=== PATIENT | female | born 1970 | race Caucasian/White ===

== ENCOUNTER 2022-02-21 20:52 | Outpatient (CLI) | payer OTHER, SELFPAY ==
--- OUTSIDE RECORDS SUMMARY | 2022-02-21 20:55 | XMS_ITS | Clinical Summary ---
:1970 Author Organization [employer] [facility] [place] [address] Care Team Providers Name Role Phone Pcp, No Primary Care Provider Unavailable Allergies No known active allergies Medications Medication Sig Dispensed Refills Start Date End Date Status triamcinolone 0.5% Apply topically 15 g 3 09/08/2020 Active (ARISTOCORT) 0.5 % to affected creamIndications: Rash area(s) 3 times daily. As needed in vaginal area azelastine-fluticasone, Inhale 1 [place] 1 Each 2 10/17/2020 Active 137-50 mcg per to both actuation, (DYMISTA) nostrils 2 137-50 mcg/spray nasal times daily. sprayIndications: Allergic rhinitis, unspecified seasonality, unspecified trigger montelukast (SINGULAIR) Take 1 Tablet 30 Tablet 3 10/17/2020 Active 10 mg tabletIndications: (10 mg) by Allergic rhinitis, mouth at unspecified seasonality, bedtime. unspecified trigger pantoprazole (PROTONIX) Take 1 Tablet 90 tablet. 3 04/17/2021 Active 40 mg delayed-release (40 mg) by tabletIndications: mouth once Laryngopharyngeal reflux daily before a disease meal. cholecalciferol (Vitamin Take 1 Capsule 0 04/17/2021 Active D-3) 2,000 unit capsule (2,000 units) by mouth once daily. pimecrolimus (ELIDEL) 1 0 04/11/2021 Active % cream magnesium oxide (MAG-OX Take 1 Tablet 0 08/29/2021 Active 400) 400 mg tablet (400 mg) by mouth once daily. Active Problems Problem Noted Date Lichen sclerosus 02/24/2019 Overview: Sees willow machine [facility] Urinary frequency 02/03/2018 Irritant contact dermatitis due to other agents 2017 Oral herpes simplex infection 03/15/2016 Overview: Since childhood Vitamin D deficiency 10/04/2014 Hyperlipidemia 10/04/2014 Varicose veins 01/22/2013 Overview: Surgical treatment 2004 Esophageal reflux 08/07/2012 Overview: EGD 09/2012 esophageal and gastric erosio ns from reflux and Nsaids Bilateral bunions 08/07/2012 Smoker 10/29/2008 Fibromyalgia 12/04/2006 Dysthymic disorder 12/04/2006 Immunizations Name Administration Dates Next Due COVID-19 vaccine (Moderna 100mcg/0.5mL) PF, MDV 08/03/2021, 07/06/2021 DTaP 02/28/2005 Td (Age >=7 Years) 02/28/2005 Tdap 08/18/2013 Family History Medical History Relation Name Comments Colon polyps Brother Heart Disease Father open heart surge ry Other Maternal Grandmother esophogeal strictures Arthritis Mother Colon polyps Mother Other Mother hiatal hernia, r eflux Diabetes Paternal Grandmother Other Son reflux Cancer-breast No Family History Relation Name Status Comments Brother Alive Father Alive Maternal Grandmother Mother Alive Paternal Grandmother Son Social History Tobacco Use Types Packs/Day Years Used Date Current Every Day Smoker Cigarettes 0.5 30 Smokeless Tobacco: Never Used Tobacco Cessation: Ready to Quit: No; Co unseling Given: Yes Alcohol Use Standard Drinks/Week Comments Yes 0 (1 standard drink = 0.6 oz pure alcoho l) rare Alcohol Habits Answer Date Recorded How often do you have a drink containing 4 or more times a w [place] 12/15/2019 alcohol? How many drinks containing alcohol do you have 1 or 2 12/15/2019 on a typical day when you are drinking? How often do you have six or more drinks on one Weekly 12/15/2019 occasion? Comment: rare 06/27/2021 Sex Assigned at Date Recorded Not on file Obstetrics History Para Term AB IAB SAB Ectopic Multiple Living Live Births 2 2 2 2 Date Outcome GA Total Labor/2nd/3rd Weight Sex Delivery Anes PTL Marleny A 1 A5 Name Clin Labor Term Term Last Filed Vital Signs Vital Sign Reading Time Taken Comments Blood Pressure 144/87 08/29/2021 10:55 AM PLANT SPRAYER Pulse 86 08/29/2021 10:55 AM PLANT SPRAYER Temperature 36.8 ??C (98.3 ??F) 07/25/2021 12:03 PM PLANT SPRAYER Respiratory Rate 16 05/30/2021 9:13 AM PLANT SPRAYER Oxygen Saturation 99% 08/29/2021 10:55 AM PLANT SPRAYER Inhaled Oxygen Concentration - - Weight 76.7 kg (169 lb) 08/29/2021 10:55 AM PLANT SPRAYER Height 167.6 cm (5' 6) 07/25/2021 12:03 PM PLANT SPRAYER Body Mass Index 27.28 07/25/2021 12:03 PM PLANT SPRAYER Plan of Treatment Health Maintenance Due Date Last Done Comments Pneumococcal series for age 19-64 1978 (1 - PCV) Hepatitis C screening for age 0107/09/1990 18-79 Colonoscopy through age 75 2017 COVID-19 vaccine series (3 - 12/31/2021 08/03/2021, 022 Booster for Moderna series) Influenza for age 9-49 02/22/2022 Mammogram for age 45-75 04/17/2022 04/17/2021, 03/01/2020, 02/24/2019, Additional history exists BMI (ht and wt on same day) for 07/25/2022 07/25/2021, 12/0 12/2020, age 18+ 04/17/2021, Additional history exists Depression screening for age 12+ 08/29/2022 08/29/2021, , 04/17/2021, Additional history exists Tetanus booster 08/18/2023 08/18/2013, 02/28/2005 Pap test for age 21-65 03/01/2025 03/01/2020, 03/01/2020, 11/29/2016, Additional history exists Lipids for age 45-75 04/17/2026 04/17/2021, 03/01/2020, 02/24/2019, Additional history exists Tdap Completed 08/18/2013 Goals Goal Patient Goal Associated Recent Patient-Stated? Author Type Problems Progress BLOOD Blood Pressure Abby Albarran PRESSURE-Ness Madsen BP Suad, LESS THAN MANAGER SMALL BUSINESS 130/80 Results Not on filefrom Last 3 Months Insurance Payer Benefit Plan / Subscriber ID Effective Dates Phone Addre ss Type Group WC WORKERS COMP WC RADHA [id number] 2021-Pres [address] [place] [address] PREFERRED ONE AETNA [id number] 2020-Presen [address] [place] [address] Roselia Solitario Workers Comp Self 1970 [id number] [address] (Home) [place] [id number] [employer] FLEXIBLE Occ Employer ATTN [facility] Health/Jimena (Home) PAYABLE [address] [place] [address] Care Teams Video Clerk Relationship Specialty Start Date End Date Pcp, No PCP - General 10/21/21 .
--- NOTE | 2022-02-27 12:35 | W.PM.SLEEP ---
Sleep Study Details Details Interpreting Provider: Jesús Richardson MD Date of Sleep Study: 02/21/22 Sleep Study Details: STUDY TYPE:? Hospital ? BMI:? 25.1 ORDERING PROVIDER:? Fortino INDICATION: Concerns about sleep apnea ? SLEEP SUMMARY:? Sleep time 3:21 a.m., latency 57, efficiency 73. Arousal index 9.2 RESPIRATORY SUMMARY:? Mean oxygen awake 94, asleep 93, low oxygen 87, 0.1 minute oxygen between 80 and 88% AHI 3.6, RDI 5.4, REM AHI 15.0 Supine AHI 8.5 supine REM AHI 20 Nonsupine AHI an RDI and REM AHI overall 0 PERIODIC LIMB MOVEMENTS OF SLEEP:? None CARDIAC:? 71 awake, 69 asleep, no arrhythmias noted IMPRESSION:? The overall AHI in this study is within normal limits at 3.6 however the RDI is elevated at 5.4. This would qualify as mild sleep apnea. 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 RECOMMENDATION: Depending on patient's symptoms treatment could consist of AutoSet CPAP at 4-17, dental appliance and/or airway expansion surgery.
== END 2022-02-21 20:53 | disposition home or self-care (01) ==
LOC: SLEEP 20:54
PROVIDERS: PCP Family Medicine; Visit Provider Otolaryngology
DX: G47.30 Sleep apnea, unspecified (principal)
CPT/HCPCS: 95810

== ENCOUNTER 2022-04-10 16:27 | Outpatient (CLI) | payer OTHER, SELFPAY ==
--- OUTSIDE RECORDS SUMMARY | 2022-04-10 07:46 | XMS_ITS | Clinical Summary ---
:1970 Author Organization [employer] [facility] [place] [address] Care Team Providers Name Role Phone Pcp, No Primary Care Provider Unavailable Allergies No known active allergies Medications Medication Sig Dispensed Refills Start Date End Date Status triamcinolone 0.5% Apply topically 15 g 3 09/08/2020 Active (ARISTOCORT) 0.5 % to affected creamIndications: Rash area(s) 3 times daily. 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 How many drinks containing alcohol [...] Comments Blood Pressure 144/87 08/29/2021 10:55 AM PHOTORESIST CONTACT PRINTER Pulse 86 08/29/2021 10:55 AM PHOTORESIST CONTACT PRINTER Temperature 36.8 ??C (98.3 ??F) 07/25/2021 12:03 PM PHOTORESIST CONTACT PRINTER Respiratory Rate 16 05/30/2021 9:13 AM PHOTORESIST CONTACT PRINTER Oxygen Saturation 99% 08/29/2021 10:55 AM PHOTORESIST CONTACT PRINTER Inhaled Oxygen Concentration - - Weight 76.7 kg (169 lb) 08/29/2021 10:55 AM PHOTORESIST CONTACT PRINTER Height 167.6 cm (5' 6) 07/25/2021 12:03 PM PHOTORESIST CONTACT PRINTER Body Mass Index 27.28 07/25/2021 12:03 PM PHOTORESIST CONTACT PRINTER Plan of Treatment Health Maintenance Due Date Last Done Comments Pneumococcal series for age 19-64 1978 (1 - PCV) Hepatitis C screening for age 0107/09/1990 18-79 Colonoscopy through age 75 2017 COVID-19 vaccine series (3 - 09/28/2021 08/03/2021, 022 Booster for Moderna series) Influenza [...] Albarran PRESSURE-Ness Madsen BP Suad, LESS THAN SCHOOL BUSINESS ADMINISTRATOR 130/80 Results Not on filefrom Last 3 Months Insurance Payer Benefit Plan / Subscriber ID Effective Dates Phone Addre ss Type Group WC WORKERS COMP WC RADHA [id number] 2021-Pres [address] [place] [address] PREFERRED ONE AETNA [id number] 2020-Presen [address] [place] [address] Roselia Solitario Workers Comp Self 1970 [id number] [address] (Home) [place] [id number] [employer] FLEXIBLE Occ Employer ATTN [employer] Health/Jimena (Home) PAYABLE [address] [place] [address] Care Teams Pv Design And Installation Technician Relationship Specialty Start Date End Date Pcp, No PCP - General 10/21/21 .
[2022-04-10 12:43] LABS: Albumin* 4.5 g/dL (3.3-5.0)
[2022-04-10 12:44] LABS: Chloride* 107 mmol/L (96-114); Potassium* 4.2 mmol/L (3.6-5.1); Sodium* 139 mmol/L (135-149)
[2022-04-10 12:46] LABS: Alkaline Phosphatase* 92 U/L (40-150); Aspartate Amino Transferase* 17 U/L (12-35); Bilirubin Total* 0.3 mg/dL (0.1-1.5); Blood Urea Nitrogen* 13 mg/dL (5-24); Carbon Dioxide* 25 mmol/L (20-32); Cholesterol* 241 mg/dL (90-199); Creatinine* 0.9 mg/dL (0.5-1.5); Estimated Glomerular Filt Rate 78 ml/min
[2022-04-10 12:47] LABS: Alanine Aminotransferase* 14 U/L (4-35); Calcium* 9.4 mg/dL (8.4-10.6); Glucose* 98 mg/dL (60-115); HDL Cholesterol* 50 mg/dL (>=50); LDL Cholesterol Calculated 166 mg/dL (<100); Triglycerides* 125 mg/dL (40-149)
== END 2022-04-10 16:28 | disposition home or self-care (01) ==
PROVIDERS: PCP Family Medicine; Visit Provider Family Medicine
DX: E78.5 Hyperlipidemia, unspecified (principal); F34.1 Dysthymic disorder
CPT/HCPCS: 80053; 80061; 84443

== ENCOUNTER 2022-04-26 09:28 | Outpatient (CLI) | payer OTHER, SELFPAY ==
--- OUTSIDE RECORDS SUMMARY | 2022-04-26 09:30 | XMS_ITS | Clinical Summary ---
:1970 Author Organization [employer] [facility] [place] [address] Care Team Providers Name Role Phone Pcp, No Primary Care Provider Unavailable Allergies No known active allergies Medications Medication Sig Dispensed Refills Start Date End Date Status triamcinolone 0.5% Apply topically 15 g 3 09/08/2020 Active (ARISTOCORT) 0.5 % to affected creamIndications: Rash area(s) 3 times daily. 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 How many drinks containing alcohol [...] Comments Blood Pressure 144/87 08/29/2021 10:55 AM SOCIAL SCIENCE RESEARCH ASSISTANT Pulse 86 08/29/2021 10:55 AM SOCIAL SCIENCE RESEARCH ASSISTANT Temperature 36.8 ??C (98.3 ??F) 07/25/2021 12:03 PM SOCIAL SCIENCE RESEARCH ASSISTANT Respiratory Rate 16 05/30/2021 9:13 AM SOCIAL SCIENCE RESEARCH ASSISTANT Oxygen Saturation 99% 08/29/2021 10:55 AM SOCIAL SCIENCE RESEARCH ASSISTANT Inhaled Oxygen Concentration - - Weight 76.7 kg (169 lb) 08/29/2021 10:55 AM SOCIAL SCIENCE RESEARCH ASSISTANT Height 167.6 cm (5' 6) 07/25/2021 12:03 PM SOCIAL SCIENCE RESEARCH ASSISTANT Body Mass Index 27.28 07/25/2021 12:03 PM SOCIAL SCIENCE RESEARCH ASSISTANT Plan of Treatment Health Maintenance Due Date [...] Albarran PRESSURE-Ness Madsen BP Suad, LESS THAN AIR POLLUTION ANALYST 130/80 Results Not on filefrom Last 3 Months Insurance Payer Benefit Plan / Subscriber ID Effective Dates Phone Addre ss Type Group WC WORKERS COMP WC RADHA [id number] 2021-Pres [address] [place] [address] PREFERRED ONE AETNA [id number] 2020-Presen [address] [place] [address] Roselia Solitario Workers Comp Self 1970 [id number] [address] (Home) [place] [id number] [employer] FLEX[employer] Occ Employer ATTN [employer] Health/Jimena (Home) PAYABLE [address] [place] [address] Care Teams Promotion Writer Relationship Specialty Start Date End Date Pcp, No PCP - General 10/21/21 .
[2022-04-28 21:25] LABS: Follicle Stimulating Hormone 65.3 IU/L
== END 2022-04-26 09:29 | disposition home or self-care (01) ==
PROVIDERS: PCP Family Medicine; Visit Provider Physician Assistant
DX: Z01.419 Encounter for gynecological examination (general) (routine) without abnormal findings (principal); N95.1 Menopausal and female climacteric states; Z12.4 Encounter for screening for malignant neoplasm of cervix
CPT/HCPCS: 83001; 87624

== ENCOUNTER 2022-05-01 07:01 | Outpatient (CLI) | payer OTHER, SELFPAY ==
--- NOTE | 2022-05-01 07:15 | CRLHL7_ITS ---
For Patients: As a result of the Century Cures Act, medical imaging exams and procedure reports are released immediately into your electronic medical record. You may view this report before your referring provider. If you have questions, please contact your health care provider. INDICATION: 51 year-old female. Lower abdominal/pelvic pain. The last menstrual period was 2 months ago. TECHNIQUE: Transabdominal and transvaginal pelvic ultrasound. FINDINGS: The uterus measures 7.7 x 3.6 x 3.6 cm. Normal endometrial stripe of 5 mm. Normal ovaries with the right measuring 2.2 x 1.4 x 2 cm and the left measuring 2.4 x 1.1 x 2 cm. 8 mm follicle left ovary. Blood flow is documented in the ovaries both arterial and venous. No torsion. No free pelvic fluid. IMPRESSION: Normal transabdominal and transvaginal pelvic ultrasound. Dictated by Phil Sheridan MD @ 05/01/2022 8:43:32 AM (Electronically Signed)
--- OUTSIDE RECORDS SUMMARY | 2022-05-01 07:22 | XMS_ITS | Clinical Summary ---
:1970 Author Organization [employer] [facility] [place] [address] Care Team Providers Name Role Phone Pcp, No Primary Care Provider Unavailable Allergies No known active allergies Medications Medication Sig Dispensed Refills Start Date End Date Status triamcinolone 0.5% Apply topically 15 g 3 09/08/2020 Active (ARISTOCORT) 0.5 % to affected creamIndications: Rash area(s) 3 times daily. 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[facility] Urinary frequency 02/03/2018 Irritant contact dermatitis due to other agents 2017 Oral herpes simplex infection 03/15/2016 Overview: Since childhood Vitamin D deficiency 10/04/2014 Hyperlipidemia 10/04/2014 Varicose veins 01/22/2013 Overview: Surgical treatment 2004 Esophageal reflux 08/07/2012 Overview: EGD 09/2012 esophageal and gastric erosio ns from reflux and Nsaids Bilateral bunions 08/07/2012 Smoker 10/29/2008 Fibromyalgia 12/04/2006 Dysthymic disorder 12/04/2006 Encounters Date Type Specialty Care Team Description 04/26/2022 Lab Requisition Milagros Santos PA-C from Last 3 Months Immunizations Name Administration Dates Next Due COVID-19 vaccine (Moderna 100mcg/0.5mL) JONN BARONE 08/03/2021, 07/06/2021 DTaP 02/28/2005 Td (Age >=7 [...] containing 4 or more times a w [place] 12/15/2019 alcohol? How many drinks containing alcohol [...] Comments Blood Pressure 144/87 08/29/2021 10:55 AM PAROLE HEARING OFFICER Pulse 86 08/29/2021 10:55 AM PAROLE HEARING OFFICER Temperature 36.8 ??C (98.3 ??F) 07/25/2021 12:03 PM PAROLE HEARING OFFICER Respiratory Rate 16 05/30/2021 9:13 AM PAROLE HEARING OFFICER Oxygen Saturation 99% 08/29/2021 10:55 AM PAROLE HEARING OFFICER Inhaled Oxygen Concentration - - Weight 76.7 kg (169 lb) 08/29/2021 10:55 AM PAROLE HEARING OFFICER Height 167.6 cm (5' 6) 07/25/2021 12:03 PM PAROLE HEARING OFFICER Body Mass Index 27.28 07/25/2021 12:03 PM PAROLE HEARING OFFICER Plan of Treatment Health Maintenance Due Date [...] history exists Tetanus booster 08/18/2023 08/18/2013, 02/28/2005 Lipids for age 45-75 04/17/2026 04/17/2021, 03/01/2020, 02/24/2019, Additional history exists Pap test for age 21-65 04/26/2027 04/26/2022, 03/01/2020, 03/01/2020, Additional history exists Tdap Completed 08/18/2013 Goals Goal Patient Goal Associated Recent Patient-Stated? Author Type Problems Progress BLOOD Blood Pressure No Albarran PRESSURE-Ness Madsen BP Suad, LESS THAN CREDIT BALANCE SPECIALIST 130/80 Procedures Procedure Name Priority Date/Time Associated Diagnosis Comme nts LAB TRACKING EVENT Routine 04/26/2022 9:30 AM CDT HPV THIN PREP Routine 04/26/2022 9:30 AM Results for this CDT procedure are i n the results section. from Last 3 Months Results LAB TRACKING EVENT (04/26/2022 9:30 AM CDT) Specimen Anatomical Collection Method Collection Time Receive d Time (Source) Location / / Volume Laterality Other (Other) Client Collect / 04/26/2022 9:30 AM 08/2021 6:22 Unknown CDT PM CDT September Lili Santos PA-C LAB BILL ONLY Performing Organization Address City/[facility] Phon e Number [employer] [address] [place] [address] LABORATORY-CENTRAL 2000 LABORATORY HPV HIGH RISK (04/26/2022 9:30 AM CDT) Analysis Performed At Patho logist Time Signature TYPE 16 Negative Negative 04/28/2022 [facility] 3:15 PM CDT LABORATORY-NOMI TRAL LABORATORY TYPE 18 Negative Negative 04/28/2022 [facility] 3:15 PM CDT LABORATORY-NOMI TRAL LABORATORY OTHER HIGH Negative Negative [facility] LAB[facility]AT[facility]-NOMI TRAL LABORATORY Specimen Anatomical Collection Method Collection Time Receive d Time (Source) Location / / Volume Laterality Other (Cervical) 04/26/2022 9:30 AM 04/27 7:33 CDT AM CDT Narrative [facility] LABORATORY-CENTRAL LABORAT ORY - 04/28/2022 3:15 PM CDT HPV types 16, 18, 31, 33, 35, 39, 45, 51, 52, 56, 58, 59, 66 and 68 DNA were undetectable or below the pre-set threshold. Methodology: Shannon Valerio 4800 HPV Test September Lili Santos PA-C MICROBIOLOGY Performing Organization Address City/[facility] Phon e Number [employer] [address] [place] [address] LABORATORY-CENTRAL 2000 LABORATORY from Last 3 Months Insurance Payer Benefit Plan / Subscriber ID Effective Dates Phone Addre ss Type Group WC WORKERS COMP ZEHRA GARCIA [id number] 2021-Pres [address] [place] [address] PREFERRED ONE AETNA [id number] 2020-Presen [address] [place] [phone] Roselia Solitario Workers Comp Self 1970 [id number] [address] [place] (Home) [place] [id number] [employer] F[employer]IBLE Occ Employer ATTN [employer] Health/Jimena (Home) PAYABLE [address] [place] [address] Care Teams Electromechanical Engineer Relationship Specialty Start Date End Date Pcp, No PCP - General 10/21/21 .
== END 2022-05-01 07:02 | disposition home or self-care (01) ==
PROVIDERS: PCP Family Medicine; Visit Provider Physician Assistant
DX: R10.9 Unspecified abdominal pain (principal); R10.2 Pelvic and perineal pain
CPT/HCPCS: 76830; 76856; 93976

== ENCOUNTER 2022-06-04 14:48 | Outpatient (CLI) | payer OTHER, SELFPAY ==
--- OUTSIDE RECORDS SUMMARY | 2022-06-04 14:51 | XMS_ITS | Clinical Summary ---
:1970 Author Organization [facility] [place] [address] Care Team Providers Name Role Phone Pcp, No Primary Care Provider Unavailable Allergies No known active allergies Medications Medication Sig Dispensed Refills Start Date End Date Status triamcinolone 0.5% Apply topically 15 g 3 09/08/2020 Active (ARISTOCORT) 0.5 % to affected creamIndications: Rash area(s) 3 times daily. 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 How many drinks containing alcohol do you have 1 or 2 12/15/2019 on a typical day when you are drinking? How often do you have six or more drinks on one Weekly 12/15/2019 occasion? Sex Assigned at Date Recorded Not on file Obstetrics History Para Term AB IAB SAB Ectopic Multiple Living Live Births 2 2 2 2 Date Outcome GA Total Labor/2nd/3rd Weight Sex Delivery Anes PTL Marleny A 1 A5 Name Clin Labor Term Term Last Filed Vital Signs Vital Sign Reading Time Taken Comments Blood Pressure 144/87 08/29/2021 10:55 AM CASEWORK SPECIALIST Pulse 86 08/29/2021 10:55 AM CASEWORK SPECIALIST Temperature 36.8 ??C (98.3 ??F) 07/25/2021 12:03 PM CASEWORK SPECIALIST Respiratory Rate 16 05/30/2021 9:13 AM CASEWORK SPECIALIST Oxygen Saturation 99% 08/29/2021 10:55 AM CASEWORK SPECIALIST Inhaled Oxygen Concentration - - Weight 76.7 kg (169 lb) 08/29/2021 10:55 AM CASEWORK SPECIALIST Height 167.6 cm (5' 6) 07/25/2021 12:03 PM CASEWORK SPECIALIST Body Mass Index 27.28 07/25/2021 12:03 PM CASEWORK SPECIALIST Plan of Treatment Health Maintenance Due Date Last Done Comments Pneumococcal series for age 19-64 1978 (1 - PCV) HIV for age 15-65 1987 Hepatitis C screening for age 0107/09/1990 18-79 [...] Pap test for age 21-65 04/26/2027 04/26/2022, 04/26/2022, 03/01/2020, Additional history exists Tdap Completed 08/18/2013 Goals Goal Patient Goal Associated Recent Patient-Stated? Author Type Problems Progress BLOOD Blood Pressure No Albarran PRESSURE-Ness Madsen BP Suad, LESS THAN RETAIL PHARMACIST 130/80 Procedures Procedure Name Priority Date/Time Associated Diagnosis Comme nts LAB TRACKING EVENT Routine 04/26/2022 9:30 AM CDT TRACTOR SWEEPER OPERATOR THIN PREP PAP Routine 04/26/2022 9:30 AM Resu lts for this SCREEN IMAGED CDT procedure are in the results section. HPV THIN PREP Routine 04/26/2022 9:30 AM Results for this CDT procedure are i n the results section. from Last 3 Months Results LAB TRACKING EVENT (04/26/2022 9:30 AM CDT) Specimen Anatomical Collection Method Collection Time Receive d Time (Source) Location / / Volume Laterality Other (Other) Client Collect / 04/26/2022 9:30 AM 08/2021 6:22 Unknown CDT PM CDT Milagros Santos PA-C LAB BILL ONLY Performing Organization Address City/State/ZIP Code Phon e Number [employer] [employer] [address] [place] [address] LABORATORY-CENTRAL 2000 LABORATORY TRACTOR SWEEPER OPERATOR THIN PREP PAP SCREEN IMAGED (04/26/2022 9:30 AM CDT) Component Value Ref Test Analysis Performed At [facility] gist Range Method Time Signature Case Report Gynecologic Cytology Report ? Case: [id number] ? 05/23/2022 KISHORE Authorizing Provider: ??Milagros Avina PA-C ?Collected: ? 04/26/2022 0930 ? 1:42 PM HEALTH Ordering Location: ? [facility] CENTRAL LAB ?Received: ?04/27/2022 0733 ? CASEWORK SPECIALIST LA BORATORY-C First Screen: ? Pablo Naranjo ? ENTRAL Specimen: ?TRACTOR SWEEPER OPERATOR ThinPrep Vial Screening, Cervical ? LABORATORY INTERPRETATION NEGATIVE FOR (none) 05/23/2022 [facility] E lectronically /RESULT INTRAEPITHELIAL 1:42 PM HEALTH sign ed by LESION OR CASEWORK SPECIALIST LABORATORY-C Pablo Naranjo MALIGNANCY (NIL) ENTRAL on 05/23/2022 at LABORATORY 1:41 PM SPECIMEN Satisfactory for evaluation 05/23/2022 A LLINA ADEQUACY No endocervical component seen 1:42 PM HEALTH CASEWORK SPECIALIST LABORATORY-C ENTRAL LABORATORY HPV REQUEST HPV and PAP 05/23/2022 [facility] 1:42 PM HEALTH CASEWORK SPECIALIST LABORATORY-C ENTRAL LABORATORY Date of LMP 01/26/2022 05/23/2022 [facility] 1:42 PM HEALTH CASEWORK SPECIALIST LABORATORY-C ENTRAL LABORATORY Last Pap Date 03/01/2020 05/23/2022 [facility] 1:42 PM HEALTH CASEWORK SPECIALIST LABORATORY-C ENTRAL LABORATORY Last Pap NIL 05/23/2022 [facility] Result 1:42 PM HEALTH CASEWORK SPECIALIST LABORATORY-C ENTRAL LABORATORY [place] Bx Done No 05/23/2022 [facility] Today 1:42 PM HEALTH CASEWORK SPECIALIST LABORATORY-C ENTRAL LABORATORY Additional 05/23/2022 [facility] Information 1:42 PM HEALTH CASEWORK SPECIALIST LABORATORY-C ENTRAL LABORATORY Comment: Interpreted at [facility] - [address], [place] [address] Automated Review Successful 05/23/2022 1:42 PM [facility] LABORATORY-CENTRAL L ABORATORY Comment: Specimen processed successfully by automated ship keeper device, ThinPrep Imaging System, [employer] ANCILLARY TESTING HPV Ordered, 05/23/2022 1:42 PM [facility] TRACTOR SWEEPER OPERATOR Please see [facility] LABORATORY-CENTRAL separate report LABORATORY Note The pap test is a 05/23/2022 1:42 PM [place] [employer] screening CASEWORK SPECIALIST LABORATORY-CENTRAL technique, not a LABORATORY diagnostic procedure. It is used primarily to screen for squamous cancers and precursor lesions. Published studies have shown that it is subject to both false negative and false positive results. The pap test should not be used as the sole means to diagnose or exclude pre-malignant and malignant lesions. Specimen Anatomical Collection Method Collection Time Receive d Time (Source) Location / / Volume Laterality Other (Cervical) 04/26/2022 9:30 AM 04/27 7:33 CDT AM CDT September Tom FREEMAN PATHOLOGY/CYTOLOGY Performing Organization Address City/[facility] Phon e Number [facility] [address] [place] [address] LABORATORY-CENTRAL 2000 LABORATORY HPV HIGH RISK (04/26/2022 9:30 AM CDT) Analysis Performed At Patho logist Time Signature TYPE 16 Negative Negative 04/28/2022 [facility] [employer] 3:15 PM CDT LABORATORY-NOMI TRAL LABORATORY TYPE 18 Negative Negative 04/28/2022 [facility] [employer] 3:15 PM CDT LABORATORY-NOMI TRAL LABORATORY OTHER HIGH Negative Negative 04/28/2022 [facility] [employer] RISK TYPES 3:15 PM CDT LABORATORY-NOMI TRAL LABORATORY Specimen Anatomical Collection Method Collection Time Receive d Time (Source) Location / / Volume Laterality Other (Cervical) 04/26/2022 9:30 AM 04/27 7:33 CDT AM CDT Narrative [facility] LABORATORY-CENTRAL LABORAT ORY - 04/28/2022 3:15 PM CDT HPV types 16, 18, 31, 33, 35, 39, 45, 51, 52, 56, 58, 59, 66 and 68 DNA were undetectable or below the pre-set threshold. Methodology: Shannon Valerio 4800 HPV Test September Tom FREEMAN MICROBIOLOGY Performing Organization Address City/[facility] Phon e Number [facility] [address] [place] [address] LABORATORY-CENTRAL 1999 LABORATORY from Last 3 Months Insurance Payer Benefit Plan / Subscriber ID Effective Dates Phone Addre ss Type Group WC WORKERS COMP WC GARCIA [id number] 2021-Pres [address] [place] [address] PREFERRED ONE AETNA [id number] 2020-Walt [address] [place] [address] Roselia Solitario Workers Comp Self 1970 [id number] [place] (Home) [place] [id number] [employer] F[employer] Occ Employer ATTN [facility] Health/Jimena (Home) PAYABLE [address] [place] [address] Care Teams Hot Plate Press Operator Relationship Specialty Start Date End Date Pcp, No PCP - General 10/21/21 .
--- NOTE | 2022-06-04 15:00 | CRLHL7_ITS ---
For Patients: As a result of the Century Cures Act, medical imaging exams and procedure reports are released immediately into your electronic medical record. You may view this report before your referring provider. If you have questions, please contact your health care provider. BILATERAL SCREENING MAMMOGRAM WITH COMPUTER-AIDED DETECTION AND TOMOSYNTHESIS TECHNIQUE: CC and MLO views were obtained. These mammographic images have been obtained using full-field digital technique. These mammographic images were interpreted with the benefit of computer-aided detection. Breast Tomosynthesis was used in this interpretation. COMPARISON FILM: 04/17/21, 03/01/20, 11/29/16 [facility]. FINDINGS: There are scattered areas of fibroglandular density IMPRESSION: There is no radiographic evidence for malignancy. ASSESSMENT: BI-RADS Category 1: Negative RECOMMENDATION: Routine screening mammogram in 1 year. A lay language report of this examination will be provided to the patient. Shaun Agudelo M.D. Diagnostic Radiologist [email or web address] ZAINA/Dictated by: Shaun Agudelo MD @ 06/05/2022 1:18:00 PM (Electronically Signed)
== END 2022-06-04 14:49 | disposition home or self-care (01) ==
LOC: MAMMO 14:49
PROVIDERS: PCP Family Medicine; Visit Provider Family Medicine
DX: Z12.31 Encounter for screening mammogram for malignant neoplasm of breast (principal)
CPT/HCPCS: 77063; 77067

== ENCOUNTER 2022-06-06 09:25 | Outpatient (CLI) | payer OTHER, SELFPAY ==
--- OUTSIDE RECORDS SUMMARY | 2022-06-06 09:29 | XMS_ITS | Clinical Summary ---
:1970 Author Organization [facility] [place] [address] Care Team Providers Name Role Phone Pcp, No Primary Care Provider Unavailable Allergies No known active allergies Medications Medication Sig Dispensed Refills Start Date End Date Status triamcinolone 0.5% Apply topically 15 g 3 09/08/2020 Active (ARISTOCORT) 0.5 % to affected creamIndications: Rash area(s) 3 times daily. As needed in vaginal area azelastine-fluticasone, Inhale 1 [place] 1 Each 2 10/17/2020 Active 137-50 mcg [...] Noted Date Lichen sclerosus 02/24/2019 Overview: Sees pot flux[facility] Urinary frequency 02/03/2018 Irritant [...] containing 4 or more times a w [place] 12/15/2019 alcohol? How many drinks containing alcohol [...] Comments Blood Pressure 144/87 08/29/2021 10:55 AM ETL SOFTWARE ENGINEER Pulse 86 08/29/2021 10:55 AM ETL SOFTWARE ENGINEER Temperature 36.8 ??C (98.3 ??F) 07/25/2021 12:03 PM ETL SOFTWARE ENGINEER Respiratory Rate 16 05/30/2021 9:13 AM ETL SOFTWARE ENGINEER Oxygen Saturation 99% 08/29/2021 10:55 AM ETL SOFTWARE ENGINEER Inhaled Oxygen Concentration - - Weight 76.7 kg (169 lb) 08/29/2021 10:55 AM ETL SOFTWARE ENGINEER Height 167.6 cm (5' 6) 07/25/2021 12:03 PM ETL SOFTWARE ENGINEER Body Mass Index 27.28 07/25/2021 12:03 PM ETL SOFTWARE ENGINEER Plan of Treatment Health Maintenance Due Date [...] Albarran PRESSURE-Ness Madsen BP Suad, LESS THAN CHARGE POSTER 130/80 Procedures Procedure Name Priority Date/Time Associated Diagnosis Comme nts LAB TRACKING EVENT Routine 04/26/2022 9:30 AM CDT SHEET METAL JOURNEYMAN THIN PREP PAP Routine 04/26/2022 9:30 AM [...] Organization Address City/State/ZIP Code Phon e Number [facility] [address] [place] [address] LABORATORY-CENTRAL 2000 LABORATORY SHEET METAL JOURNEYMAN THIN PREP PAP SCREEN IMAGED (04/26/2022 9:30 AM CDT) Component Value Ref Test Analysis Performed At [facility] gist Range Method Time Signature Case Report Gynecologic Cytology Report ? Case: [id number] ? 05/23/2022 KISHORE Authorizing Provider: ??Milagros Avina PA-C ?Collected: ? 04/26/2022 0930 ? 1:42 PM HEALTH Ordering Location: ? [facility] CENTRAL LAB ?Received: ?04/27/2022 0733 ? ETL SOFTWARE ENGINEER LA BORATORY-C First Screen: ? Pablo Naranjo ? ENTRAL Specimen: ?SHEET METAL JOURNEYMAN ThinPrep Vial Screening, Cervical ? LABORATORY INTERPRETATION NEGATIVE FOR (none) 05/23/2022 [facility] E lectronically /RESULT INTRAEPITHELIAL 1:42 PM HEALTH sign ed by LESION OR ETL SOFTWARE ENGINEER LABORATORY-C Pablo Naranjo MALIGNANCY (NIL) ENTRAL on 05/23/2022 at LABORATORY 1:41 PM SPECIMEN Satisfactory for evaluation 05/23/2022 A LLINA ADEQUACY No endocervical component seen 1:42 PM HEALTH ETL SOFTWARE ENGINEER LABORATORY-C ENTRAL LABORATORY HPV REQUEST HPV and PAP 05/23/2022 [facility] 1:42 PM HEALTH ETL SOFTWARE ENGINEER LABORATORY-C ENTRAL LABORATORY Date of LMP 01/26/2022 05/23/2022 [facility] 1:42 PM HEALTH ETL SOFTWARE ENGINEER LABORATORY-C ENTRAL LABORATORY Last Pap Date 03/01/2020 05/23/2022 [facility] 1:42 PM HEALTH ETL SOFTWARE ENGINEER LABORATORY-C ENTRAL LABORATORY Last Pap NIL 05/23/2022 [facility] Result 1:42 PM HEALTH ETL SOFTWARE ENGINEER LABORATORY-C ENTRAL LABORATORY [place] Bx Done No 05/23/2022 [facility] Today 1:42 PM HEALTH ETL SOFTWARE ENGINEER LABORATORY-C ENTRAL LABORATORY Additional 05/23/2022 [facility] Information 1:42 PM HEALTH ETL SOFTWARE ENGINEER LABORATORY-C ENTRAL LABORATORY Comment: Interpreted at [facility] - [address] [place] [address], [place] [address] Automated Review Successful 05/23/2022 1:42 PM [facility] LABORATORY-CENTRAL L ABORATORY Comment: Specimen processed successfully by automated registration officer device, ThinPrep Imaging System, [employer] ANCILLARY TESTING HPV Ordered, 05/23/2022 1:42 PM [facility] HEALTH SHEET METAL JOURNEYMAN Please see [facility] LABORATORY-CENTRAL separate report LABORATORY Note The pap test is a 05/23/2022 1:42 PM [place] [employer] screening ETL SOFTWARE ENGINEER LABORATORY-CENTRAL technique, not a LABORATORY diagnostic procedure. [...] September Tom FREEMAN PATHOLOGY/CYTOLOGY Performing Organization Address City/[facility] Phon e Number [facility] [address] [place] [address] LABORATORY-CENTRAL 2000 LABORATORY HPV HIGH RISK (04/26/2022 9:30 AM CDT) Analysis Performed At Patho logist Time Signature TYPE 16 Negative Negative 04/28/2022 [facility] [employer] 3:15 PM CDT LABORATORY-NOMI TRAL LABORATORY TYPE 18 Negative Negative 04/28/2022 [facility] [employer] 3:15 PM CDT LABORATORY-NOMI TRAL LABORATORY OTHER HIGH Negative Negative 04/28/2022 [facility] [employer] RISK TYPES 3:15 PM CDT LABORATORY-NOMI TRAL LABORATORY Specimen Anatomical Collection Method Collection Time Receive d Time (Source) Location / / Volume Laterality Other (Cervical) 04/26/2022 9:30 AM 04/27 7:33 CDT AM CDT Narrative [facility] LABORATORY-CENTRAL LABORAT ORY - 04/28/2022 3:15 PM CDT HPV types 16, 18, 31, 33, 35, 39, 45, 51, 52, 56, 58, 59, 66 and 68 DNA were undetectable or below the pre-set threshold. Methodology: Shannon Valerio 4800 HPV Test September Tom FREEMAN MICROBIOLOGY Performing Organization Address City/[facility] Phon e Number [facility] [address] [place] [address] LABORATORY-CENTRAL 1999 LABORATORY from Last 3 Months Insurance Payer Benefit Plan / Subscriber ID Effective Dates Phone Addre ss Type Group WC WORKERS COMP WC GARCIA [id number] 2021-Pres [address] [place] [address] PREFERRED ONE [employer] [id number] 2020-Walt [address] [place] [address] Roselia Solitario Workers Comp Self 1970 [id number] [address] (Home) [place] [id number] [employer] Occ Employer ATTN [employer] Health/Jimena (Home) PAYABLE [address] [place] [address] Care Teams Automotive Engineering Teacher Relationship Specialty Start Date End Date Pcp, No PCP - General 10/21/21 .
[2022-06-07 23:17] LABS: Rheumatoid Factor <10 IU/mL (0-14)
== END 2022-06-06 09:26 | disposition home or self-care (01) ==
LOC: NFLDREF 09:27
PROVIDERS: PCP Family Medicine; Visit Provider Family Medicine
DX: M79.641 Pain in right hand (principal); M79.642 Pain in left hand; R10.9 Unspecified abdominal pain; E78.5 Hyperlipidemia, unspecified
CPT/HCPCS: 86200; 86431

== ENCOUNTER 2022-08-08 08:52 | Outpatient (CLI) | payer OTHER, SELFPAY ==
--- NOTE | 2022-08-08 09:15 | CRLHL7_ITS ---
For Patients: As a result of the Century Cures Act, medical imaging exams and procedure reports are released immediately into your electronic medical record. You may view this report before your referring provider. If you have questions, please contact your health care provider. INDICATION: Neck and arm pain. COMPARISON: None. TECHNIQUE: Sagittal T1, T2, and STIR sequences. Axial T2/gradient sequences. FINDINGS: Straightening of the normal cervical lordosis which may be due to most spasm or patient positioning. Otherwise, normal vertebral body and facet alignment. No fractures. No vertebral body loss of height. No spondylolisthesis. No ligamentous injury. No suspicious osseous lesions. Normal cord signal. No intradural mass or lesion. C1-2: No spinal canal narrowing. C2-3: No spinal canal or neural foraminal narrowing. C3-4: Disc degeneration. Shallow posterior disc bulging disc osteophyte complex measured approximate 2 mm in short axis. No narrowing of spinal canal. No neural foraminal narrowing. C4-5: Disc degeneration and posterior disc bulge. No narrowing of spinal canal. No neural foraminal narrowing. C5-6: Disc degeneration and posterior disc bulge or disc osteophyte complex. Mild narrowing of spinal canal. Uncovertebral joint hypertrophy results in moderate right and mild left neural foraminal narrowing. Potential impingement of the right C6 nerve root. C6-7: No spinal canal neural foraminal narrowing. C7-T1: No spinal canal or neural foraminal narrowing. IMPRESSION: 1. Straightening of the normal cervical lordosis. Otherwise, normal alignment. No fractures 2. Normal cord signal. 3. Mild cervical spondylosis. 4. At C5-6, disc degeneration. Posterior disc bulge or disc osteophyte complex. Mild narrowing of the spinal canal. Moderate right and mild left neural foraminal narrowing. Potential impingement of the right C6 nerve root. 5. No spinal canal or neural foraminal narrowing at the remaining levels Dictated by Luciano Humphreys MD @ 08/08/2022 11:09:11 AM (Electronically Signed)
== END 2022-08-08 08:53 | disposition home or self-care (01) ==
PROVIDERS: PCP Family Medicine; Visit Provider Psychiatry & Neurology Neurology
DX: M54.2 Cervicalgia (principal); M47.892 Other spondylosis, cervical region; M50.322 Other cervical disc degeneration at C5-C6 level; M79.603 Pain in arm, unspecified; G24.3 Spasmodic torticollis; G44.86 Cervicogenic headache; R20.2 Paresthesia of skin; R25.1 Tremor, unspecified
CPT/HCPCS: 72141

== ENCOUNTER 2022-08-10 08:30 | Outpatient (RCR) | payer OTHER, SELFPAY | END 2022-08-10 10:02 | disposition home or self-care (01) | PROVIDERS: PCP Family Medicine; Visit Provider Family Medicine | DX: M79.641 Pain in right hand (principal); Z51.89 Encounter for other specified aftercare | CPT/HCPCS: 97035; 97110; 97140; 97166; 97535; X5282 ==

== ENCOUNTER 2023-02-21 11:49 | Outpatient (CLI) | payer OTHER, SELFPAY | END 2023-02-21 11:50 | disposition home or self-care (01) | PROVIDERS: PCP Family Medicine; Visit Provider Nurse Practitioner Family | DX: R07.89 Other chest pain (principal); R35.0 Frequency of micturition; N39.46 Mixed incontinence; Z13.6 Encounter for screening for cardiovascular disorders | CPT/HCPCS: 80048; 80053; 80061; 85025; 87086 ==

== ENCOUNTER 2023-02-26 12:34 | Outpatient (CLI) | payer OTHER, SELFPAY ==
[2023-02-26 13:38] VITALS: BP 150/98; PULSE 88; RESP 18
--- NOTE | 2023-02-26 14:13 | W.PM.STED ---
Stress Test Note Date Date of test: 02/26/23 Providers Primary care provider: Jadiel June Stress test physician: Quan Kearns Stress Test Note Stress test ordered: Stress Echo Indication for test: chest pain Results discussion: Patient is a very nice 52-year-old female presents here for evaluation of chest pain. Pretest EKG shows normal sinus rhythm, with no acute ST wave changes, ventricular rate is 71 with a blood pressure 144/92. Cardiac stress test medical history form is reviewed. Risks benefits and side effects are discussed with patient she would like to proceed. Following standard Bhupinder protocol patient is exercised for a total time of 6 minutes 1 seconds, test is stop because of fatigue. Achieved a metabolic equivalent 7.3 Mets and a maximum heart rate of 145. She had no chest pain she was some mild shortness of breath. There is no EKG changes suggestive of ischemia, she had no anginal equivalents. And there were no dysrhythmias. Impression: Negative electrographic portion of stress echo, conditioning was felt to be poor Follow up suggested: Await echo images, clinical correlation with these will be needed. Patient recovered normally left this testing facility in good condition.
== END 2023-02-26 13:50 | disposition home or self-care (01) ==
LOC: STRESS 12:35
PROVIDERS: PCP Family Medicine; Visit Provider Family Medicine
DX: R07.9 Chest pain, unspecified (principal)
CPT/HCPCS: 93016; 93325; 93351

== ENCOUNTER 2023-04-15 07:45 | Outpatient (CLI) | payer OTHER, SELFPAY | END 2023-04-15 07:46 | disposition home or self-care (01) | LOC: NFLDREF 04-17 15:32 | PROVIDERS: PCP Family Medicine; Referring Provider Family Medicine; Visit Provider Family Medicine | DX: E78.5 Hyperlipidemia, unspecified (principal) | CPT/HCPCS: 80053; 80061 ==

== ENCOUNTER 2023-05-07 11:34 | Outpatient (CLI) | payer OTHER, SELFPAY ==
--- NOTE | 2023-05-07 12:11 | W.ANESCHARGE ---
Anesthesia Charges Start Date/Time Anesthesia Start Date: 05/07/23 Anesthesia Start Time: 12:05 Stop Date/Time Anesthesia Stop Date: 05/07/23 Anesthesia Stop Time: 13:28
--- NOTE | 2023-05-07 13:32 | W.ANESCHARGE ---
Anesthesia Charges Start Date/Time Anesthesia Start Date: 05/07/23 Anesthesia Start Time: 12:05 Stop Date/Time Anesthesia Stop Date: 05/07/23 Anesthesia Stop Time: 13:28
== END 2023-05-07 11:35 | disposition home or self-care (01) ==
LOC: OP CLINIC 11:34
PROVIDERS: PCP Family Medicine; Visit Provider Surgery
DX: Z12.11 Encounter for screening for malignant neoplasm of colon (principal); K63.5 Polyp of colon; K62.1 Rectal polyp; D17.5 Benign lipomatous neoplasm of intra-abdominal organs; Z83.719 Family history of colon polyps, unspecified
CPT/HCPCS: 00811; 45380; 45385; 88305; J2704

== ENCOUNTER 2023-07-30 09:04 | Outpatient (CLI) | payer OTHER, SELFPAY ==
--- OUTSIDE RECORDS SUMMARY | 2023-07-30 09:06 | XMS_ITS | Data Portability ---
Author Name Unknown Address [address] [place] [address] Phone [phone] Organization [facility], [employer] Address [address] [place] [address] Assessment Encounter Date Assessment Date Assessment LastModified by Organization Details LastModified Time 07/02/2022 07/02/2022 Patient presents with bilateral foot problem with significant findings including: metatarsalgia b/l, tarsal tunnel symptoms b/l. Based on history, physical exam, and prior diagnostic tests/treatments , I recommend conservative care and considering diagnostic injections. Discussed treatment plan and orders with patient as indicated below. Not available 07/02/2022 22:48:05 Plan of Treatment Reminders Order Date Submit Date Provider Last Modified By Organization Details Last Modified Time Details Appointments None record ed. Lab None record ed. Referral None record ed. Procedures None record ed. Surgeries None record ed. Imaging None record ed. Medication Orders None record ed. Patient TargetsNo targets recorded. Patient InstructionsNo instructions recorded. Reason for Referral None Reported. Problems Name Status Onset Date Resolution Date Notes Provider Name and Address Organization Details Recorded Time Anxiety disorder Active 2022 Parish Abarca, ANA [address] [place], [address] , [facility] 3 11:42:40 Gastroesophageal reflux disease Active 2022 Parish Abarca, ANA [address] [place], [address] , [facility] 3 11:43:52 Lateral plantar neuropathy Active 2021 Lateral plantar neuropathy; Original Code: 126149580 Andi ginal Codesystem: SNOMED CT Classifica tion: Medical Confi rmation Status: Confirmed Not Available [facility] 3 09:15:37 Peptic ulcer Active 2021 Peptic ulcer; Original Code: 25378000 Orig inal Codesystem: SNOMED CT Classifica tion: Medical Confi rmation Status: Confirmed Not Available [facility] 3 09:15:37 Hypertensive disorder Active 2021 Hypertensive disorder; Original Code: 5328970486 Or iginal Codesystem: SNOMED CT Classifica tion: Medical Confi rmation Status: Confirmed Not Available [facility] 3 09:15:37 Metatarsalgia Active 2021 Metatarsalgia ; Original Code: 64687073 Orig inal Codesystem: SNOMED CT Classifica tion: Medical Confi rmation Status: Confirmed Not Available [facility] 3 09:15:37 Notes:Acquired deformity of left foot Original Code: [id number] Original Codesystem: SNOMED CT Classification: Medical Confirmation Status: Confirmed Acquired deformity of right foot Original Code: 6166770580 Original Codesystem: SNOMED CT Classification: Medical Confirmation Status: Confirmed Problem Notes None recorded. Medical Equipment None Reported. Allergies No known drug allergies Medications Name Sig Start Date Stop Date Status Note LastModified by Organization Details LastModified Time tizanidin e 2 mg tablet TAKE 1 TABLET BY MOUTH IN THE EVENING MONITOR NEEDED FOR PAIN OR DROWSINE SS active Not Available Not Available No t Available triamcino lone acetonide 0.1 % topical cream USE 1 APPLIC TOPICALL Y TWICE WEEKLY APPLY TO AREA TWICE WEEKLY active Not Available Not Available No t Available amoxicill in 875 mg tablet 07/02 completed Not Available Not Available Not Available amitripty line 10 mg tablet TAKE 10 MG AT BEDTIME FOR 7DAYS, THEN 20MG FOR 7DAYS, THEN 30MG FOR 7 DAYS, THEN 40MG THEREAFT ER active Not Available Not Available No t Available pantopraz ole 40 mg tablet,de layed release TAKE ONE TABLET BY MOUTH DAILY BEFORE A MEAL active Not Available Not Available No t Available methylpre dnisolone 4 mg tablets in a dose pack TAKE 1 PACKET BY MOUTH ONCE DIRECTED ON PACKAGE LABELING 07/02 completed Not Available Not Available Not Available celecoxib 100 mg capsule TAKE 1 CAPSULE BY MOUTH TWICE A DAY active Not Available Not Available No t Available cholecalc iferol (vitamin D3) 2021 active Medicati on Identifi ers: [id number] C ode Medthod: DNUM Ord erStatus : Ordered Visit Identifi ers: [id number] Vi sit Identifi er Type: FIN NBR Uniq ue Order Number: [id number] Admin istratio n Method: Med PRN Indicato r: N Order Status Modifier s Descript ion: Recorded / Home Meds Not Available Not Available Not Available Vitals Date Recorded Body height Body mass index (BMI) Body weight Provider Name and Address Organization Details Last Updated DateTime 07/02/2022 170.18 cm 28.2 kg/m2 33222.63 g Kylie osborne [place] - [facility] 07/02/2022 10:23:58 Social History Question Answer Notes LastModified by Organizat ion Details LastModified Time Tobacco Smoking Status Current Every Day Smoker Parish Abarca DPM [address] [place] [address], [phone], [facility] - [facility] 07/02/2022 11:42:27 What Is Your Level Of Alcohol Consumption? Occasional Information not available 07/02/2022 Do You Use Any Illicit Or Recreational Drugs? No Information not available 07/02/2022 Sex: Female Functional Status None recorded. Mental Status None recorded. Family History Nothing Reported. Medical History No medical history recorded. Gynecological HistoryNo gynecological history recorded. Obstetrics History GPAL:G 0 P 0 0 0 0 Past Encounters Encounter ID Performer Location Encounter Start Date Encounter Closed Date Diagnosis/Indication [id number] Parish Abarca DPM [place] [facility] [address] [facility] [address] [place] [address] 07/02/2022 10:22:20 07/03/2022 09:12:27 Metatarsalgia Tarsal tunnel syndrome Equinus contracture of the ankle Health Concerns Section Related Observation LastModified by Organization Detai ls LastModified Time None Recorded Concern Status LastModified by Organization Details LastModified Time None Recorded Advance Directives Directive None Recorded Payers Encounter Date Sequence Insurance Name Policy Number Policy [place] Covered Member ID [place] Member ID Guarantor Name 07/02/2022 1 [employer] (POS) [id number] Roselia Solitario [id number] Roselia Cheek Kassi Notes Date Note Type Note Provider Name and Address Organization Details Recorded Time 07/02/2022 text/html HPI Notes: This established patient rtc for f/u evaluation of b/l foot pain. She feels it is worsening. She has increasing sharp pains to her forefoot. She has pain to both ankles. Denies any swelling. She does wear her orthotics regularly at work but not at home. Parish Abarca, ANA [address] [place], [address], [facility] - [facility] 07/02/2022 22:50:14 OBGyn Episode No OBEpisode recorded.
--- OUTSIDE RECORDS SUMMARY | 2023-07-30 09:06 | XMS_ITS | Clinical Summary ---
Author Name Unknown Organization [facility] Address [place], [place] [address] Care Team Providers Care Audit Practice Intern Name Role Phone Pcp, No Primary Care Provider Unavailabl e Allergies No known active allergies Medications Medication Sig Dispensed Refills Start Date End Date Status triamcinolone 0.5% (ARISTOCORT) 0.5 % creamIndications:Jorge h Apply topically to affected area(s) 3 times daily. As needed in vaginal area 15 g 3 09/08/2020 Active azelastine-fluticaso ne, 137-50 mcg per actuation, (DYMISTA) 137-50 mcg/spray nasal sprayIndications:All ergic rhinitis, unspecified seasonality, unspecified trigger Inhale 1 [place] to both nostrils 2 times daily. 1 Each 2 10/17/2020 Active montelukast (SINGULAIR) 10 mg tabletIndications:Al lergic rhinitis, unspecified seasonality, unspecified trigger Take 1 Tablet (10 mg) by mouth at bedtime. 30 Tablet 3 10/17/2020 Active pantoprazole (PROTONIX) 40 mg delayed-release tabletIndications:La ryngopharyngeal reflux disease Take 1 Tablet (40 mg) by mouth once daily before a meal. 90 tablet. 3 04/17/2021 Active cholecalciferol (Vitamin D-3) 2,000 unit capsule Take 1 Capsule (2,000 units) by mouth once daily. 0 04/17/2021 Active pimecrolimus (ELIDEL) 1 % cream 0 04/11/2021 Active magnesium oxide (MAG-OX 400) 400 mg tablet Take 1 Tablet (400 mg) by mouth once daily. 0 08/29/2021 Active Active Problems Problem Noted Date Diagnosed Date Lichen sclerosus 02/24/2019 Overview: [facility]es [facility] Urinary frequency 02/03/2018 Irritant contact dermatitis due to other agents 01/15/2018 Oral herpes simplex infection 03/15/2016 Overview: Since childhood Vitamin D deficiency 10/04/2014 Hyperlipidemia 10/04/2014 Varicose veins 01/22/2013 Overview: Surgical treatment 2004 Esophageal reflux 08/07/2012 Overview: EGD 09/2012 esophageal and gastric erosions from reflux and Nsaids Bilateral bunions 08/07/2012 Smoker 10/29/2008 Fibromyalgia 12/04/2006 Dysthymic disorder 12/04/2006 Encounters Date Type Department Care Team Description 05/07/2023 Lab Requisition [facility] [phone] Pebbles Mir MD from Last 3 Months Immunizations Name Administration Dates Next Due COVID-19 vaccine (Moderna 100mcg/0.5mL) PFJONN 08/03/2021,07/06/2021 DTaP 02/28/2005 Td (Age >=7 Years) 02/28/2005 Tdap 08/18/2013 Family History Medical History Relation Name Comments Colon polyps Brother Heart Disease Father open heart prudence juan a Other Maternal Grandmother esophog eal strictures Arthritis Mother Colon polyps Mother Other Mother hiatal hernia, reflux Diabetes Paternal Grandmother Other Son reflux Cancer-breast No Family History Relation Name Status Comments Brother Alive Father Alive Maternal Grandmother Mother Alive Paternal Grandmother Son Social History Tobacco Use Types Packs/Day Years Used Date Smoking Tobacco: Every Day Cigarettes 0.5 30 Smokeless Tobacco: Never Tobacco Cessation:Ready to Q uit: No; Counseling Given: Yes Alcohol Use Standard Drinks/Week Comments Yes 0 (1 standard drink = 0.6 oz pur e alcohol) rare PHQ-2 Answer Date Recorded PHQ-2 TOTAL SCORE 3 08/29/2021 Social Connections Answer Date Recorded Frequency of Communication with Friends and Fami ly Not on file 06/19/2021 Financial Resource Strain Answer Date R ecorded Difficulty of Paying Living Expenses Not on file 06/19/2021 Difficulty of Paying Living Expenses Not on file 06/19/2021 Sex and Gender Information Value Date Recorded Sex Assigned at Not on file Gender Identity Not on file Sexual Orientation Not on file Obstetrics History Para Term AB IAB SAB Ectopic Multiple Livin g Live Births 2 2 2 2 Date Outcome GA Total Labor Labor/2nd/3rd Weight Sex Delivery Anes PTL Marleny A1 A5 Name Cl in Term Term Last Filed Vital Signs Vital Sign Reading Time Taken Comments Blood Pressure 144/87 08/29/2021 10:55 AM DEPUTY COMMISSIONER Pulse 86 08/29/2021 10:55 AM DEPUTY COMMISSIONER Temperature 36.8 ??C (98.3 ??F) 07/25/2021 12:[address] Respiratory Rate 16 05/30/2021 9:13 AM DEPUTY COMMISSIONER Oxygen Saturation 99% 08/29/2021 10:55 AM DEPUTY COMMISSIONER Inhaled Oxygen Concentration - - Weight 76.7 kg (169 lb) 08/29/2021 10:55 AM DEPUTY COMMISSIONER Height 167.6 cm (5' 6) 07/25/2021 12:03 PM DEPUTY COMMISSIONER Body Mass Index 27.28 07/25/2021 12:03 PM DEPUTY COMMISSIONER Plan of Treatment Health Maintenance Due Date Last Done Comments Pneumococcal series for age 6-64 (1 of 2 - PCV) 1978 HIV for age 15-65 1987 Hepatitis C screening for ag e 18-79 1990 Colonoscopy through age 75 2017 Mammogram for age 45-75 04/17/2022 04/17/20 21, 03/01/2020, 02/24/2019, Additional history exists Zoster (shingles) series for age 50+ (1 of 2) 2022 BMI (ht and wt on same day) for age 18+ 07/25/2022 07/25/2021, 05/30/2021, 04/17/2021, Additional history exists Depression screening for age 12+ 08/29/2022 08/29/2021, 04/18/2021, 04/17/2021, Additional history exists COVID-19 vaccine series ( - 2022- season) 2023 08/03/2021, 07/06/2021 Influenza for age 50-64 02/22/2023 Tetanus booster 08/18/2023 08/18/2013, 02/28/2005 Lipids for age 45-75 04/17/2026 04/17/2021, 03/01/2020, 02/24/2019, Additional history exists Pap test for age 21-65 04/26/2027 , 04/26/2022, 03/01/2020, Additional history exists Tdap Completed 08/18/2013 Goals Goal Patient Goal Type Associated Problems Recent Progress Patient-Stated? Author BLOOD PRESSURE-MA INTAINS BP LESS THAN 130/80 Blood Pressure No Ness Morrow NP Procedures Procedure Name Priority Date/Time Associated Diagnosis Comments LAB TRACKING EVENT Routine 05/07/2023 1: 00 PM DEPUTY COMMISSIONER PATH TISSUE EXAM Routine 05/07/2023 1:00 PM DEPUTY COMMISSIONER from Last 3 Months Results * LAB TRACKING EVENT (05/07/2023 1:00 PM DEPUTY COMMISSIONER) Other (Other) Client Collect / Unknown 05/07/2023 1:00 PM DEPUTY COMMISSIONER 05/07/2023 9:02 PM DEPUTY COMMISSIONER Pebbles Mir MD LAB BILL ONLY [facility] [address] [place] [address], * PATH TISSUE EXAM (05/07/2023 1:00 PM DEPUTY COMMISSIONER) Case Report Pathology Report ?Case: [id number] ? Authorizing Provider: ??Pebbles Mir MD ??Collected: ? 05/07/2023 1300 ? Ordering Location: ? [facility] ?Received: ?05/08/2023 0827 ? Pathologist: ? Jose Guadalupe, Adeel Mcdaniel, ? MD ? Specimens: ?? A) - Splenic Flexure Biopsy ? B) - Cecum Biopsy ? C) - Hepatic Flexure Biopsy ? D) - Hepatic Flexure Biopsy, hepatic flexure, lipoma ? E) - Transverse Colon Biopsy ? F) - Sigmoid Biopsy ? G) - Rectal Biopsy ? 05/09/2023 2:57 PM [facility] Final Diagnosis A) COLON, SPLENIC FLEXURE, POLYPECTOMIES: 1. Tubular adenomas (2), hyperplastic polyp (1) and normal colonic mucosa with lymphoid aggregate 2. Negative for high grade dysplasia 3. Per the colonoscopy report: ?? a. Polyp sizes: 6 mm - 8 mm ?? b. Resection: Complete ?? c. Retrieval: Complete B) COLON, CECUM, POLYPECTOMY: 1. Tubulovillous adenoma consistent with an advanced adenoma 2. Negative for high grade dysplasia 3. Per the colonoscopy report: ?? a. Polyp size: 20 mm ?? b. Resection: Complete ?? c. Retrieval: Complete C) COLON, HEPATIC FLEXURE, POLYPECTOMIES: 1. Tubular adenomas (2) 2. Negative for high grade dysplasia 3. Per the colonoscopy report: ?? a. Polyp sizes: 6 mm - 8 mm ?? b. Resection: Complete ?? c. Retrieval: Complete D) COLON, HEPATIC FLEXURE, POLYPECTOMY: 1. Normal colonic mucosa (see comment) 2. Negative for serrated change, dysplasia and malignancy E) COLON, TRANSVERSE, POLYPECTOMIES: 1. Tubular adenomas (2) 2. Negative for high grade dysplasia 3. Per the colonoscopy report: ?? a. Polyp sizes: 2 mm - 4 mm ?? b. Resection: Complete ?? c. Retrieval: Complete F) COLON, SIGMOID, POLYPECTOMY: 1. Tubular adenoma 2. Negative for high grade dysplasia 3. Per the colonoscopy report: ?? a. Polyp size: 6 mm ?? b. Resection: Complete ?? c. Retrieval: Complete G) RECTUM, POLYPECTOMY: 1. Traditional serrated adenoma (1, largest polyp) and hyperplastic polyps (9) 2. Negative for high grade dysplasia 3. Per the colonoscopy report: ?? a. Polyp sizes: 4 mm - 10 mm ?? b. Resection: Complete ?? c. Retrieval: Complete 05/09/2023 2:57 PM DEPUTY COMMISSIONER [facility] Comment B) Advanced adenoma of the colorectum is defined by the [employer] ([employer]G) as an adenoma that is 1 cm or more in size, contains an appreciable villous component, or has high grade dysplasia (Chloé Cook. [2008] Gastroenterology, PMID - [id number]). Patients with advanced adenomas are at an increased risk for synchronous and metachronous additional advanced adenomas. Appropriate follow-up is suggested. D) The clinical impression of a possible lipoma is noted; there is too little submucosal tissue present here to histologically evaluate this possibility. There is no diagnostic abnormalities in the sampled tissue. G) Traditional serrated adenoma is an uncommon polyp in the serrated family of polyps that show dysplastic nuclear features throughout. The USMSTF guidelines recommend a 3-year interval for surveillance colonoscopy in patients with traditional serrated adenoma. This recommendation, however, is weak and based on very low-quality of evidence. 05/09/2023 2:57 PM DEPUTY COMMISSIONER [facility] Clinical Information Family history of colon cancer. 05/09/2023 2:57 PM DEPUTY COMMISSIONER [facility] Gross Description A) Received in formalin are 3 kendall mucosal fragments ranging from 4 mm to 10 mm in greatest dimension, which are entirely submitted in one cassette. It is labeled with the patient's name and designated splenic flexure. B) Received in formalin is a 19 x 9 x 3 mm aggregate of kendall mucosa. Submitted in 2 cassettes. It is labeled with the patient's name and designated cecum. C) Received in formalin is a 15 x 10 x 2 mm aggregate of kendall mucosa. Submitted in one cassette. It is labeled with the patient's name and designated hepatic flexure. D) Received in formalin are 2 kendall mucosal fragments ranging from 2 mm to 4 mm in greatest dimension, which are entirely submitted in one cassette. It is labeled with the patient's name and designated hepatic flexure, lipoma. E) Received in formalin are 3 kendall mucosal fragments averaging 3 mm in greatest dimension, which are entirely submitted in one cassette. It is labeled with the patient's name and designated transverse colon. F) Received in formalin are 4 kendall mucosal fragments ranging from 1 mm to 5 mm in greatest dimension, which are entirely submitted in one cassette. It is labeled with the patient's name and designated sigmoid colon. G) Received in formalin are 8 kendall mucosal fragments ranging from 3 mm to 16 mm in greatest dimension, which are entirely submitted in 2 cassettes. It is labeled with the patient's name and designated rectum. Paris Cheek Noon 05/08/2023 8:58 AM 05/09/2023 2:57 PM DEPUTY COMMISSIONER [facility] Microscopic Description The final diagnosis is based on microscopic examination of appropriate sections of all specimens. 05/09/2023 2:57 PM DEPUTY COMMISSIONER [facility] Additional Information Interpreted at [facility], [facility] Laboratory - [address] [place] [address] [facility] [address], [place] [address] 05/09/2023 2:57 PM DEPUTY COMMISSIONER [facility] Other (Splenic Flexure Biopsy) 05/07/2023 1:00 PM DEPUTY COMMISSIONER 05/08/2023 8:27 AM DEPUTY COMMISSIONER Specimen (specimen) (Cecum Biopsy) 05/07/2023 1:00 PM DEPUTY COMMISSIONER 05/08/2023 8:27 AM DEPUTY COMMISSIONER Specimen (specimen) (Hepatic Flexure Biopsy) 05/07/2023 1:00 PM DEPUTY COMMISSIONER 05/08/2023 8:27 AM DEPUTY COMMISSIONER Specimen (specimen) (Hepatic Flexure Biopsy) 05/07/2023 1:00 PM DEPUTY COMMISSIONER 05/08/2023 8:27 AM DEPUTY COMMISSIONER Specimen (specimen) (Transverse Colon Biopsy) 05/07/2023 1:00 PM DEPUTY COMMISSIONER 05/08/2023 8:27 AM DEPUTY COMMISSIONER Specimen (specimen) (Sigmoid Biopsy) 05/07/2023 1:00 PM DEPUTY COMMISSIONER 05/08/2023 8:27 AM DEPUTY COMMISSIONER Specimen (specimen) (Rectal Biopsy) 05/07/2023 1:00 PM DEPUTY COMMISSIONER 05/08/2023 8:27 AM DEPUTY COMMISSIONER Pebbles Mir MD PATHOLOGY/CYTOLO GY [facility] [address] [place] [address], from Last 3 Months Care Teams Audit Practice Intern Relationship Specialty Start Date End Date Pcp, No . PCP - General 10/21/21
--- NOTE | 2023-07-30 09:15 | CRLHL7_ITS ---
For Patients: As a result of the Century Cures Act, medical imaging exams and procedure reports are released immediately into your electronic medical record. You may view this report before your referring provider. If you have questions, please contact your health care provider. BILATERAL SCREENING MAMMOGRAM WITH COMPUTER-AIDED DETECTION AND TOMOSYNTHESIS TECHNIQUE: CC and MLO views were obtained. These mammographic images have been obtained using full-field digital technique. These mammographic images were interpreted with the benefit of computer-aided detection. Breast Tomosynthesis was used in this interpretation. COMPARISON FILM: 06/04/22, 04/17/21, 03/01/20. FINDINGS: There are scattered areas of fibroglandular density IMPRESSION: There is no radiographic evidence for malignancy. ASSESSMENT: BI-RADS Category 1: Negative RECOMMENDATION: Routine screening mammogram in 1 year. A lay language report of this examination will be provided to the patient. Shaun Agudelo M.D. Diagnostic Radiologist [email or web address] ZAINA/Dictated by: Shaun Agudelo MD @ 07/30/2023 12:38:00 PM (Electronically Signed)
== END 2023-07-30 09:05 | disposition home or self-care (01) ==
LOC: MAMMO 09:04
PROVIDERS: PCP Family Medicine; Visit Provider Family Medicine
DX: Z12.31 Encounter for screening mammogram for malignant neoplasm of breast (principal)
CPT/HCPCS: 77063; 77067

== ENCOUNTER 2023-09-24 06:06 | Day surgery (SDC) | payer OTHER, SELFPAY ==
[2023-09-24 06:24] VITALS: BMI 30.3
[2023-09-24 06:55] LABS: Hemoglobin* 14.1 gm/dL (12.0-16.0)
[2023-09-24 07:06] VITALS: BP 113/79; PULSE 78; RESP 16; TEMP 36.7; O2SAT 95
[2023-09-24] MEDS: SODIUM CHLORIDE 0.9 % (FLUSH) 10 ML SYRINGE IVF (07:11)
[2023-09-24] MEDS: LACTATED RINGERS 1000 ML 1,000 ML 100 ML IV (07:11)
--- NOTE | 2023-09-24 07:30 | P.PCN_ITS ---
Procedure Note Time Seen by Provider: 08:09 Date Seen: 09/24/23 Date of procedure: 09/24/23 Will [facility] bill your pro fee for this procedure?: Yes Procedure: Preop diagnosis: Roselia is a 53 year-old woman with a mixed urinary incontinence. Postop diagnosis: Same. Procedure: Transobturator, suburethral sling placement Anesthesia: Conscious sedation, local Total IV fluid: 900 mL Estimated blood loss : 30 mL Specimen: None Drains: Lainez to gravity Findings: On diagnostic cystoscopy after the sling was placed to there was no evidence of bladder or urethral injury. Procedure The patient was taken to the operating room and conscious sedation was found to be adequate. The patient was placed in high Caballero's position for the sling placement. A weighted speculum was placed in the posterior vaginal introitus. A marker was used to place tao in the groin folds at the level of the clitoris. 1% lidocaine with epinephrine was injected into both the groin fold incision sites and the anterior aspect of the vaginal canal at the mid urethral junction. Two punch incisions were made at each of the groin fold sites. A 2 cm it vertical incision was made anterior aspect of the vaginal canal just below the mid urethral junction. The right Adelina trocar was then advanced through the right groin incision and the right side of the sling was attached to the trocar and the trocar reverse through the incision to pull the sling through. The left trocar was then placed in the left side of the sling then pulled through in a similar manner. The Lainez catheter was briefly removed for diagnostic cystoscopy with the above find ing stated. A 9. Cervical dilator was placed between the sling and the vaginal canal and the sling pulled tight. The trocars were then removed using a scissors, the plastic overlying the sling was removed and the sling cut to below the groin fold skin incisions. Exofin adhesive gel was applied to the groin fold incisions. The vaginal incision was repaired using 2-0 Vicryl in a running locked manner. The speculum was removed. Sponge, lap and instrument counts were correct x2 at the end the procedure. The patient was awakened from anesthesia taken to the recovery area in stable condition. The patient received 2 g IV Ancef prior to the start of the procedure
--- NOTE | 2023-09-24 07:30 | W.PM.H&PU ---
History & Physical Update History & Physical Update H&P Reviewed and patient assessed: No changes noted
[2023-09-24] MEDS: CEFAZOLIN 2 GM INJ IVP (07:37)
[2023-09-24 08:20] VITALS: BP 101/68; PULSE 73; RESP 16; TEMP 36.6; O2SAT 95
--- NOTE | 2023-09-24 08:22 | W.ANESCHARGE ---
Anesthesia Charges Start Date/Time Anesthesia Start Date: 09/24/23 Anesthesia Start Time: 07:30 Stop Date/Time Anesthesia Stop Date: 09/24/23 Anesthesia Stop Time: 08:21
[2023-09-24 08:30] VITALS: BP 124/86; PULSE 67; RESP 16; O2SAT 94
[2023-09-24] MEDS: OXYCODONE 5 MG TABLET PO (08:32)
[2023-09-24 08:45] VITALS: BP 113/71; PULSE 65; RESP 16; O2SAT 95
[2023-09-24 09:00] VITALS: BP 116/71; PULSE 73; RESP 16; O2SAT 95
--- NOTE | 2023-09-24 09:10 | SUR.PHASEII ---
Bladder back filed with 300cc at 0830, void trial at 0900. Pt able to void 250cc, updated & OK with results.
[2023-09-24] MEDS: ACETAMINOPHEN 500 MG TABLET 1000 MG PO (09:35)
== END 2023-09-24 09:47 | disposition home or self-care (01) ==
PROVIDERS: PCP Family Medicine; Visit Provider Obstetrics & Gynecology
PROC: (CPT 57288; principal; 2023-09-24 07:30)
DX: N39.46 Mixed incontinence (principal)
CPT/HCPCS: 57288; 00940; 36415; 85018; 86850; 86900; 86901; A4344; A9270; C1771; J0690; J1885; J2250; J2405; J2704; J3010; J7120

== ENCOUNTER 2023-10-10 09:26 | Outpatient (CLI) | payer OTHER, SELFPAY | END 2023-10-10 09:27 | disposition home or self-care (01) | LOC: NFLDREF 09:26 | PROVIDERS: PCP Family Medicine; Visit Provider Obstetrics & Gynecology | DX: R30.0 Dysuria (principal) | CPT/HCPCS: 87086 ==

== ENCOUNTER 2023-10-31 07:04 | Outpatient (CLI) | payer OTHER, SELFPAY ==
--- OUTSIDE RECORDS SUMMARY | 2023-10-31 07:06 | XMS_ITS | Data Portability ---
Author Name Unknown Address [address] [place] [address] Phone [phone] Organization [place] - [facility], [employer] Address [address] [place] [address] Assessment Encounter Date Assessment Date Assessment LastModified by Organization Details LastModified Time 07/02/2022 07/02/2022 Patient presents with bilateral foot problem with significant findings including: metatarsalgia b/l, tarsal tunnel symptoms b/l. Based on history, physical exam, and prior diagnostic tests/treatments , I recommend conservative care and considering diagnostic injections. Discussed treatment plan and orders with patient as indicated below. Not available 07/02/2022 22:48:05 08/21/2023 08/21/2023 The patient was informed of her diagnosis as detailed down below. At this time I recommended that we modify her previous inserts with a first ray cutout in addition to further padding to the heels to offload pressure. Additionally I did discuss that I would recommend physical therapy at this time, however we will wait at this time. In regards to her overall inflammation I will give a medrol dose pack for initial anti inflammatory relief. The patient will be seen back in a few weeks after her insert modifications for a recheck. I did discuss that in regards to her fibromyalgia I would be unable to correct this myself and I did recommend that she work with her previous neurology provider. [email or web address] Not available 08/21/2023 10:24:16 Plan of Treatment Reminders Order Date Submit Date Provider Last Modified By Organization Details Last Modified Time Details Appointments None recorded. Lab None recorded. Referral None recorded. Procedures None recorded. Surgeries None recorded. Imaging XR, foot, 3 or more view 024 024 [facility], [address], [place], [address], /202 4 13:53:24 XR, foot, 3 or more view 024 024 [facility], [address] [place] [address] [address] [place], [address], 02/29/202 4 13:53:24 Medication Orders Medrol (Arturo) 4 mg tablets in a dose pack 024 [facility] [address] [employer], [address] [facility] [address], [place], [address], 4 10:16:01 Patient TargetsNo targets recorded. Patient InstructionsNo instructions recorded. Reason for Referral None Reported. Results Created Date Observation Date Name Description Value Unit Range Abnormal Flag LastModifiedBy Organization Detail LastModifiedTime 08/21/19 24 XR, foot, 3 or more view No observ ation record ed. [address], [address], 08/21/2023 10:15:13 08/21/19 24 XR, foot, 3 or more view No observ ation record ed. [address] [place], [address], 08/21/2023 10:15:19 Result Notes None recorded. Problems Name Status Onset Date Resolution Date Notes Provider Name and Address Organization Details Recorded Time Anxiety disorder Active 2022 NANCY Pierce - [facility] 3 11:42:40 Gastroesophageal reflux disease Active 2022 NANCY Pierce - [facility] 3 11:43:52 Lateral plantar neuropathy Active 2021 Lateral plantar neuropathy; Original Code: 116480866 Andi ginal Codesystem: SNOMED CT Classifica tion: Medical Confi rmation Status: Confirmed Not Available [facility] 3 09:15:37 Peptic ulcer Active 2021 Peptic ulcer; Original Code: 40973968 Orig inal Codesystem: SNOMED CT Classifica tion: Medical Confi rmation Status: Confirmed Not Available [facility] 3 09:15:37 Hypertensive disorder Active 2021 Hypertensive disorder; Original Code: 1792968259 Or iginal Codesystem: SNOMED CT Classifica tion: Medical Confi rmation Status: Confirmed Not Available [facility] 3 09:15:37 Metatarsalgia Active 2021 Metatarsalgia ; Original Code: 70105824 Orig inal Codesystem: SNOMED CT Classifica tion: Medical Confi rmation Status: Confirmed Not Available [facility] 3 09:15:37 Notes:Acquired deformity of left foot Original Code: 1984406998 Original Codesystem: SNOMED CT Classification: Medical Confirmation Status: Confirmed Acquired deformity of right foot Original Code: 5716558921 Original Codesystem: SNOMED CT Classification: Medical Confirmation Status: Confirmed Problem Notes None recorded. Procedures Surgical History None recorded. Imaging Results Imaging Date Name Status LastModified by Organiz ation Details LastModified Time 08/21/2023 XR, foot, 3 or more view completed [address] [facility] [address] [place] [address] [address] [place], [address], 08/21/2023 10:15:13 08/21/2023 XR, foot, 3 or more view completed [address] [facility] [address] [place] [address] [address] [place], [address], 08/21/2023 10:15:19 Procedure Notes None recorded. Medical Equipment None Reported. Allergies No known drug allergies Medications Name Sig Start Date Stop Date Status Note LastModified by Organization Details LastModified Time primidone 50 mg tablet PLEASE SEE ATTACHED FOR DETAILED DIRECTIO NS active Not Available Not Available No t Available tizanidin e 2 mg tablet TAKE 1 TABLET BY MOUTH IN THE EVENING MONITOR NEEDED FOR PAIN OR DROWSINE SS active Not Available Not Available No t Available azithromy melvin 250 mg tablet TAKE 2 TABLETS BY MOUTH TODAY, THEN TAKE 1 TABLET DAILY FOR 4 DAYS active Not Available Not Available No t Available Medrol (Arturo) 4 mg tablets in a dose pack Take 1 dose pk by oral route, for metatars algia and foot pain. 2023 active Not Available Not Available Not Avai lable triamcino lone acetonide 0.1 % topical cream APPLY TOPICALL Y TWICE A DAY X 2 WEEKS, THEN TWICE WEEKLY active Not Available Not Available No t Available amoxicill in 875 mg tablet 07/02 completed Not Available Not Available Not Available amitripty line 10 mg tablet TAKE 10 MG AT BEDTIME FOR 7DAYS, THEN 20MG FOR 7DAYS, THEN 30MG FOR 7 DAYS, THEN 40MG THEREAFT ER active Not Available Not Available No t Available pantopraz ole 40 mg tablet,de layed release 40 MG ORALLY DAILY active Not Available Not Available No t Available nystatin 100,000 unit/gram topical cream APPLY TOPICALL Y TO AFFECTED AREA 3 TIMES DAILY X1-2 WEEKS & CONTINUE FOR 2 DAYS AFTER RASH RESOLVES active Not Available Not Available No t Available celecoxib 100 mg capsule TAKE 1 CAPSULE BY MOUTH TWICE A DAY active Not Available Not Available No t Available amoxicill in 875 mg-potass ium clavulana te 125 mg tablet TAKE 1 TABLET BY MOUTH TWICE A DAY active Not Available Not Available No t Available pregabali n 75 mg capsule START WITH 1 CAPSULE ONCE DAILY. INCREASE EVERY 3 DAYS BY 1 CAP TO 150MG TWICE DAILY TOLERATE D active Not Available Not Available No t Available cholecalc iferol (vitamin D3) 2021 active Medicati on Identifi ers: [id number] C ode Medthod: DNUM Ord erStatus : Ordered Visit Identifi ers: [id number] Vi sit Identifi er Type: FIN NBR Uniq ue Order Number: [id number] Admin istratio n Method: Med PRN Indicato r: N Order Status Modifier s Descript ion: Recorded / Home Meds Not Available Not Available Not Available diclofena c 1 % topical gel USE 2 GRAMS 4 TIMES A DAY TO SINGLE ELBOW, WRIST OR HAND (HAND INCLUDES PALM/FIN GERS/PETER K OF HANDS) active Not Available Not Available No t Available GaviLyte- G 236 gram-22.7 4 gram-6.74 gram-5.86 gram oral solution 240 ML ORALLY EVERY 10 MINUTES UNTIL FECAL EFFLUENT IS CLEAR active Not Available Not Available No t Available baclofen 5 mg tablet TAKE 1 TABLET BY MOUTH TWICE A DAY active Not Available Not Available No t Available Vitals Date Recorded Body height Body mass index (BMI) Body weight Provider Name and Address Organization Details Last Updated DateTime 07/02/2022 170.18 cm 28.2 kg/m2 20523.63 g Kylie osborne [facility] 07/02/2022 10:23:58 Social History Question Answer Notes LastModified by Organizat ion Details LastModified Time Tobacco Smoking Status Current Every Day Smoker Parish osborne [facility] 07/02/2022 11:42:27 [...] Encounter Start Date Encounter Closed Date Diagnosis/Indication Diagnosis SNOMED-CT Code 1852 [facility] [address] [place] [address] 07/02/2022 10:22:20 07/03/2022 09:12:27 Metatarsalgia 56125362 Tarsal sohail viet syndrome 92015634 Equinus co ntracture of the ankle 185949183 12242 Vamsi Bernstein [facility] Office [address] [place] [address] 08/21/2023 09:36:57 08/22/2023 13:53:23 Fibromyalgia 357369930 Metatarsal clifford of right foot 96441444630313 0 Metatarsal clifford of left foot 72153387538093 6 Plantar fasciitis 916710 003 Health Concerns Section Related Observation LastModified by Organization Detai ls LastModified Time None Recorded Concern Status LastModified by Organization Details LastModified Time None Recorded Advance Directives Directive None Recorded Payers Encounter Date Sequence Insurance Name Policy Number Policy [place] Covered Member ID [place] Member ID Guarantor Name 08/21/2023 1 [employer] (POS) [id number] Roselia Solitario [id number] 5 Roselia Solitario 07/02/2022 1 [employer] (POS) [id number] Roselia Forbesalem [id number] 5 Roselia Cheek Kassi Notes Date Note [...] at work but not at home. Parish osborne [place] - [facility] 07/02/2022 22:50:14 08/21/2023 text/html HPI Notes: Marleny judd is a 53 year old female established patient who presents to clinic today for evaluation of bilateral foot pain. She was a previous patient of my partner who has since moved institutions who saw her last visit for possible tarsal tunnel syndrome in addition to metatarsalgia to both feet. Endorses that she has had gradual worsening of her foot pain overtime and her previous inserts have not been helpful in reducing pain. Of note the patient does have a history of fibromyalgia under management by Neurology who have recommended Lyrica for management of neuropathy symptoms. The patient mentions that she does not want to take this medication secondary to side effects at this time. Vamsi Bernstein, ANA [address] [place], [address], [facility] 08/28/2023 11:06:08 OBGyn Episode No OBEpisode recorded.
--- OUTSIDE RECORDS SUMMARY | 2023-10-31 07:06 | XMS_ITS | Clinical Summary ---
Author Name Unknown Organization [facility] Address [place], [place] [address] Care Team Providers Care Flight Reservations Manager Name Role Phone Pcp, No Primary Care [...] rhinitis, unspecified seasonality, unspecified trigger Inhale 1 [place] to both nostrils 2 times daily. 1 [...] 04/17/2021 Active pimecrolimus (ELIDEL) 1 % cream 04/11/2021 Active magnesium oxide (MAG-OX 400) 400 mg tablet Take 1 Tablet (400 mg) by mouth once daily. 0 08/29/2021 Active Active Problems Problem Noted Date Diagnosed Date Lichen sclerosus 02/24/2019 Overview: [facility]es [facility] Urinary frequency 02/03/2018 Irritant [...] Due COVID-19 vaccine (Moderna 100mcg/0.5mL) PF, MDV 08/03/2021,07/06/2021 DTaP 02/28/2005 Td (Age >=7 Years) [...] Comments Blood Pressure 144/87 08/29/2021 10:55 AM ACCOUNTS PAYABLE ADMINISTRATOR Pulse 86 08/29/2021 10:55 AM ACCOUNTS PAYABLE ADMINISTRATOR Temperature 36.8 ??C (98.3 ??F) 07/25/2021 12:[address] Respiratory Rate 16 05/30/2021 9:13 AM ACCOUNTS PAYABLE ADMINISTRATOR Oxygen Saturation 99% 08/29/2021 10:55 AM ACCOUNTS PAYABLE ADMINISTRATOR Inhaled Oxygen Concentration - - Weight 76.7 kg (169 lb) 08/29/2021 10:55 AM ACCOUNTS PAYABLE ADMINISTRATOR Height 167.6 cm (5' 6) 07/25/2021 12:03 PM ACCOUNTS PAYABLE ADMINISTRATOR Body Mass Index 27.28 07/25/2021 12:03 PM ACCOUNTS PAYABLE ADMINISTRATOR Plan of Treatment Health Maintenance Due Date Last Done Comments HIV for age 15-65 1987 Hepatitis C screening for age 18-79 1990 Colonoscopy through age 75 2017 Mammogram for age 45-75 04/17/2022 04/17/20, 03/01/2020, 02/24/2019, Additional history exists Zoster (shingles) series for age 50+ (1 of 2) 2022 BMI (ht and wt on same day) for age 18+ 07/25/2022 07/25/2021, 05/30/2021, 04/17/2021, Additional history exists Depression screening for age 12+ 08/29/2022 08/29/2021, 04/18/2021, 04/17/2021, Additional history exists COVID-19 vaccine series ( season) 2023 08/03/2021, 07/06/2021 Tetanus booster 08/18/2023 08/18/2013, 02/28/2005 Influenza for age 50-64 02/23/2024 Lipids for age 45-75 04/17/2026 04/17/2021, 03/01/2020, 02/24/2019, Additional history exists Pap test for age 21-65 04/26/2027 2, 04/26/2022, 03/01/2020, Additional history exists Tdap Completed 08/18/2013 Pneumococcal series for age 6-64 Aged Out No longer eligible based on patient's age to complete this topic Goals Goal Patient Goal Type Associated Problems Recent Progress Patient-Stated? Author BLOOD PRESSURE-MA INTAINS BP LESS THAN 130/80 Blood Pressure No Ness Morrow NP Procedures Procedure Name Priority Date/Time Associated Diagnosis Comments HPV THIN PREP Routine 04/26/2022 9:30 AM CDT XR MAMMO BILAT SCREENING Routine 04/17/2021 9:38 AM CDT Visit for screening mammogram LIPID PANEL W REFLEX MEASURED LDL Routine 04/17/2021 8:56 AM CDT Screening for lipoid disorders from Last 3 Months or Most Recently Relevant to Health Maintenance Results * HPV HIGH RISK (04/26/2022 9:30 AM CDT) TYPE 16 Negative Negative 04/28/2022 3:15 PM CDT [facility] TYPE 18 Negative Negative 04/28/2022 3:15 PM CDT [facility] OTHER HIGH RISK TYPES Negative Negative 04/28/2022 3:15 PM CDT [facility] Other (Cervical) 04/26/2022 9:30 AM CDT 04/27/2022 7:33 AM CDT Narrative [facility] - 04/28/2022 3:15 PM CDT HPV types 16, 18, 31, 33, 35, 39, 45, 51, 52, 56, 58, 59, 66 and 68 DNA were undetectable or below the pre-set threshold. Methodology: Shannon Valerio 4800 HPV Test September Lili Santos PA-C MICROBIOLOGY [facility] [address] [place] [address], * XR MAMMO BILAT SCREENING (04/17/2021 9:38 AM CDT) Anatomical Region Laterality Modality BREASTS, Breast Left, Breast Right Bilateral Mammography Impressions 04/17/2021 4:13 PM CDT ??There is no radiographic evidence for malignancy. ??Recommend annual mammograms. MAMMOGRAM ASSESSMENT: ??ACR 1 Negative PATIENTS: You will also receive a letter with your examination results in an easy to read format. ??If you have questions about your results, please contact your referring provider. Narrative 04/17/2021 4:13 PM CDT For Patients: As a result of the Cures Act, medical imaging exams and procedure reports are released immediately into your electronic medical record. You may view this report before your referring provider. If you have questions, please contact your health care provider. XR MAMMO BILAT SCREENING [[id number]] CLINICAL HISTORY: ??This is an asymptomatic 50 y.o. patient. INDICATION FOR EXAM: Mammogram Screening. TECHNIQUE: CC & MLO views were obtained. ??This study was evaluated with the assistance of Computer-Aided Detection. COMPARISON FILM: Yes 03/01/20 [employer] 02/24/19 [facility] FINDINGS: ??The breasts are heterogeneously dense, which may obscure small masses. There are no dominant masses, suspicious micro calcifications or areas of architectural distortion. Nirmala Piña MD MAMMO * (ABNORMAL) LIPID PANEL W REFLEX MEASURED LDL (04/17/2021 8:56 AM CDT) CHOLESTEROL,TOTAL 272(H) 100 - 199 mg/dL 04/17/2021 3:10 PM CDT [facility] TRIGLYCERIDES 129 <150 mg/dL 04/17/2021 3:10 PM CDT [facility] HDL CHOLESTEROL 55 >40 mg/dL 3:10 PM CDT [facility] NON-HDL CHOLESTEROL 217(H) <145 mg/dl 04/17/2021 3:10 PM CDT [facility] CHOL/HDL RATIO 4.95(H) <4.50 04/17/2021 3:10 PM CDT [facility] LDL CHOLESTEROL 191(H) <=130 mg/dL 04/17/2021 3:10 PM CDT [facility] VLDL CHOLESTEROL 26 <=30 mg/dL 04/17/2021 3:10 PM CDT [facility] PROVIDER ORDERED STATUS RANDOM 04/17/2021 3:10 PM CDT [facility] Blood BLOOD SPECIMEN / Unknown Venipuncture / Unknown 04/17/2021 8:56 AM CDT 04/17/2021 8:56 AM CDT Nirmala Piña MD CHEMISTRY [facility] [address] [place] [address], from Last 3 Months or Most Recently Relevant to Health Maintenance Care Teams Flight Reservations Manager Relationship Specialty Start Date End Date Pcp, No . PCP - General 10/21/21
--- OUTSIDE RECORDS SUMMARY | 2023-10-31 07:06 | XMS_ITS | Continuity of Care Document ---
Author Name Unknown Address [address] [place] [address] Phone [phone] Organization [place] [facility] [place] [facility] Address [address] [place] [address] Assessment Encounter Date Assessment Date Assessment LastModified by Organization Details LastModified Time 08/21/2023 08/21/2023 The patient was informed of [...] Imaging XR, foot, 3 or more view [facility], [address] [place] [address], [address], 4 13:53:24 XR, foot, 3 or more view 024 [facility], [address] [place] [address], [address], 4 13:53:24 Medication Orders Medrol (Arturo) 4 mg tablets in a dose pack 024 024 [facility] [address] [employer], [address], [place], [address], 4 10:16:01 Patient TargetsNo targets recorded. Patient InstructionsNo instructions recorded. Reason for Referral None Reported. Results Created Date Observation Date Name Description Value Unit Range Abnormal Flag LastModifiedBy Organization Detail LastModifiedTime 08/21/19 24 XR, foot, 3 or more view No observ ation record ed. [address] [place] [address] 60 , [place], [address], 08/21/2023 10:15:13 08/21/19 24 XR, foot, 3 or more view No observ ation record ed. [address] [place], [address], 08/21/2023 10:15:19 Result Notes None recorded. Problems Name Status Onset Date Resolution Date Notes Provider Name and Address Organization Details Recorded Time Anxiety disorder Active 2022 NANCY Pierce - [facility] 3 11:42:40 Gastroesophageal reflux disease Active 2022 NANCY Pierce - [facility] 3 11:43:52 Lateral plantar neuropathy Active 2021 Lateral plantar neuropathy; Original Code: 575171716 Andi ginal Codesystem: SNOMED CT Classifica tion: Medical Confi rmation Status: Confirmed Not Available [facility] 3 09:15:37 Peptic ulcer Active 2021 Peptic ulcer; Original Code: 59224437 Orig inal Codesystem: SNOMED CT Classifica tion: Medical Confi rmation Status: Confirmed Not Available [facility] 3 09:15:37 Hypertensive disorder Active 2021 Hypertensive disorder; Original Code: 8233181644 Or iginal Codesystem: SNOMED CT Classifica tion: Medical Confi rmation Status: Confirmed Not Available [facility] 3 09:15:37 Metatarsalgia Active 2021 Metatarsalgia ; Original Code: 78025454 Orig inal Codesystem: SNOMED CT Classifica tion: Medical Confi rmation Status: Confirmed Not Available [facility] 3 09:15:37 Notes:Acquired deformity of left foot Original Code: 9517140746 Original Codesystem: SNOMED CT Classification: Medical Confirmation Status: Confirmed Acquired deformity of right foot Original Code: 4371633272 Original Codesystem: SNOMED CT Classification: Medical Confirmation Status: Confirmed Problem Notes None recorded. Procedures Surgical History None recorded. Imaging Results Imaging Date Name Status LastModified by Organiz ation Details LastModified Time 08/21/2023 XR, foot, 3 or more view completed [address], [address], 08/21/2023 10:15:13 08/21/2023 XR, foot, 3 or more view completed [address], [address], 08/21/2023 10:15:19 Procedure Notes None recorded. Medical [...] D3) 2021 active Medicati on Identifi ers: [id number] C ode Medthod: DNUM Ord erStatus : Ordered Visit Identifi ers: [id number] Vi sit Identifi er Type: FIN NBR Uniq ue Order Number: [id number] Admin istratio n Method: Med PRN [...] Available Not Available No t Available Vitals None Recorded Social History Question Answer Notes LastModified by Organizat ion Details LastModified Time Tobacco Smoking Status Current Every Day Smoker NANCY Pierce - [facility] 07/02/2022 [...] Encounter Closed Date Diagnosis/Indication Diagnosis SNOMED-CT Code 85186 Vamsi Bernstein DPM [place] [facility] [address] [facility] [address] [facility] [address] 08/21/2023 09:36:57 08/22/2023 13:53:23 Fibromyalgia 677548486 Metatarsal clifford of right foot 83021924415714 0 Metatarsal clifford of left foot 50712563348745 6 Plantar fasciitis 153458 003 Health Concerns Section Related Observation LastModified by Organization Detai ls LastModified Time None Recorded Concern Status LastModified by Organization Details LastModified Time None Recorded Payers Encounter Date Sequence Insurance Name Policy Number Policy [place] Covered Member ID [place] Member ID Guarantor Name 08/21/2023 1 [employer] (POS) [id number] Roselia Solitario [id number] 5 Roselia Solitario Notes Date Note Type Note Provider Name and Address Organization Details Recorded Time 08/21/2023 text/html HPI Notes: Marleny judd is [...] to side effects at this time. Vamsi Bernstein DPM [address] [place], [address], [facility] - [facility] 08/28/2023 11:06:08 OBGyn Episode No OBEpisode recorded.
--- NOTE | 2023-10-31 07:15 | US_ITS ---
Patient: YOBANI GOODE Facility:?[facility] RIS Patient ID:?[id number] Site Patient ID:?[id number]. Site :?1970 Study:?US-Pelvis PELVIS TA & TV-10/31/2023 7:58:32 AM Ordering Physician:SHADI CID Final Report: INDICATION: Lower abdominal pain. Unsure of LMP. COMPARISON: 05/01/2022 FINDINGS: Transvaginal and transabdominal ultrasound examination of the female pelvis was performed. Initial examination is performed with transabdominal technique and transvaginal technique is used for better visualization of the pelvic structures. The uterus is anteverted with no evidence of mass. It measures 7.7 x 3.7 x 3.8 cm. The endometrial lining is normal in thickness at 3 mm. The previously seen small complex cyst in the left ovary has resolved. The ovaries are normal in appearance and size, the right measuring 2.1 x 1.0 x 3 cm and the left measuring 2.1 x 0.6 x 0.5 cm. There is normal color and pulse doppler flow in both ovaries. There is no sign of free fluid in the pelvis. IMPRESSION: Normal ultrasound examination of the female pelvis using transvaginal and transabdominal technique. Dictated by Bruno Wilkinson MD @ 10/31/2023 11:17:19 AM Signed by:?Bruno Wilkinson MD @10/31/2023 11:17:19 AM (Electronic Signature)
== END 2023-10-31 07:05 | disposition home or self-care (01) ==
LOC: US 07:05
PROVIDERS: PCP Family Medicine; Visit Provider Physician Assistant
DX: R10.30 Lower abdominal pain, unspecified (principal)
CPT/HCPCS: 76830; 76856; 93976

== ENCOUNTER 2024-05-04 10:02 | Outpatient (CLI) | payer OTHER, SELFPAY | END 2024-05-04 10:03 | disposition home or self-care (01) | PROVIDERS: PCP Family Medicine; Visit Provider Physician Assistant | DX: N89.8 Other specified noninflammatory disorders of vagina (principal); R10.2 Pelvic and perineal pain | CPT/HCPCS: 87086 ==

== ENCOUNTER 2024-06-01 09:05 | Outpatient (CLI) | payer OTHER, SELFPAY ==
--- OUTSIDE RECORDS SUMMARY | 2024-06-01 09:08 | XMS_ITS | Encounter Summary ---
Author Organization [facility] Address [address] [place] [address] Care Team Providers Care Dyer Assistant Name Role Phone Unavailable Primary Care Provider Unavailabl e Reason for Referral * Outpatient (Routine) - Closed Specialty Diagnoses / Procedures Referred By Emanuel patel Referred To Contact Orthopedic Surgery Leonora Barkley D.PRigobertoMRigoberto [address] [place] [address] Phone: tel: [facility] Region Referral ID Status Reason Start Date Expiration Date Visits Re quested Visits Authorized [id number] Closed 03/18/2024 09/17/2025 1 1 Scheduling Instructions 04/20 30 min foot pain Reason for Visit * Reason Comments Follow-up MRI results - still having pain/sensations Follow-up MRI results - still having pain/sensations * Outpatient (Routine) - Closed Specialty Diagnoses / Procedures Referred By Emanuel patel Referred To Contact Orthopedic Surgery Diagnoses Neuroma Plantar Left Pain Foot Right Fasciitis Plantar Leonora Barkley D.P.MRigoberto [address] [place] [address] Phone: tel: fax: [facility] Region Referral ID Status Reason Start Date Expiration Date Visits Re quested Visits Authorized [id number] Closed 03/03/2024 09/02/2025 1 1 Encounter Details Date Type Department Care Team (Late st Contact Info) Description 03/18/2024 9:15 AM CDT Office Visit Department of Orthopedic Surgery in [place], [place] [address] [place] [phone] Leonora Barkley D.P.M. [address] [place] [phone] Tendinitis Posterior Tibialis Left (Primary Dx); Neuroma Plantar Left; Pain Foot Right; Fasciitis Plantar; Tendinitis Posterior Tibialis Right; Tarsal Tunnel Syndrome Bilateral Discharge Disposition: Home or Self Care Social History Tobacco Use Types Packs/Day Years Used Date Smoking Tobacco: Every Day Cigarettes Smokeless Tobacco: Never Nutrition Answer Date Recorded Nutrition: EVOO Fat Source Unknown 08/25 Nutrition: Servings of Fruits/Vegetables per Day Not on file 08/25/2020 Dental Answer Date Recorded Dental: Regular Dentist Unknown 12/02/19 24 Comments Unknown Sex and Gender Information Value Date Recorded Sex Assigned at Not on file 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 - 03/18/2024 9:15 AM CDT For inflammation and pain: Mobic 7.5mg daily. Voltaren topical gel daily. Penlac topical to big toenails for fungal infection with new nail growth 6-10 months. Tarsal tunnel - Mobic and orthotics for tendonitis and may need to consider cortisone in future if no improvement. Plantar fasciitis - Mobic for inflammation, splint and orthotics (take white wedge out of splints) documented in this encounter Progress Notes * Leonora Barkley D.PLenin - 03/18/2024 9:15 AM CDT SUBJECTIVE CHIEF COMPLAINT/REASON FOR VISIT Chief Complaint Patient presents with Right Foot - Follow-up MRI results - still having pain/sensations Left Foot - Follow-up MRI results - still having pain/sensations HISTORY OF PRESENT ILLNESS Roselia presents today for : review MRI right and left foot. OBJECTIVE VITAL SIGNS There were no vitals taken for this visit. PHYSICAL EXAMINATION General Appearance: Roselia is well nourished, well groomed, cooperative, alert and is in no acute distress. Lower Extremity Physical Exam: Musculoskeletal: Bilateral heel pain is focal to the plantar fascial insertion to calcaneus. She denies any pain along the plantar fascial band to the forefoot. Pain is also present to the medial arch bilateral and follows along the posterior tibial tendon proximally through tarsal tunnel. Motor strength normal and symmetric. No gross deformities or dislocations. Rectus foot structure. Gait: normal gait for age. Neurological: Positive Tinel's bilateral. Positive Jairon's 3rd interspace left foot. Negative Jairon's right foot. Coordination within normal limits. Patient is able to follow tasks as directed. Dermatological: Lower extremity: Skin evaluation: Skin, turgor, texture and color within normal limits . Toenails: Thickened nail growth with subungual debris left hallux. Vascular: intact MR Foot Right without and with IV Contrast Result Date: 03/16/2024 Impression: 1. Postoperative changes across the first and second rays as above. Negative for fracture, marrow contusion, or bone marrow stress reaction. 2. Mild changes of chondrosis across the second and third TMT articulations. 3. No significant intermetatarsal bursitis or findings to suggest an interdigital neuroma allowing for artifact. MR Foot Left without and with IV Contrast Result Date: 03/16/2024 Impression: 1. Negative for fracture, stress fracture, or bone marrow stress reaction. 2. Postop changes from instrumented osteotomies of the first metatarsal and great toe proximal phalanx. 3. Mild changes of chondrosis across the second and third TMT articulations. 4. Probable interdigital neuroma interspersed between the plantar aspect of the second and third metatarsal heads. ASSESSMENT / PLAN 1. Tendinitis Posterior Tibialis Left 2. Neuroma Plantar Left 3. Pain Foot Right 4. Fasciitis Plantar 5. Tendinitis Posterior Tibialis Right PLAN: Prior EMG is reviewed with results within normal limits when assessing for sensorimotor neuropathy bilateral extremity. MRIs are reviewed with the patient noting interdigital neuroma to the left foot. She also had symptoms of plantar fasciitis and had started using night splints at home but has shooting pain from her feet and tingling sensation when using the night splints. She is instructed to take the forefoot wedge out of her night splints. Reviewed with the patient the pain through her tarsal tunnel and altered sensations as well as the pain associated with posterior tibial tendinitis. She is prescribed Mobic for control of inflammation and pain. I also anticipate her new custom orthotics will help control her symptoms of tarsal tunnel and plantar fasciitis and offload neuromas.Discussed the option of cortisone injection if symptoms continue. Reviewed with the patient the appearance of fungal infection to the right and left great toenails and she will begin application of Penlac. Assessment for Roselia will be ongoing with changes in treatment as indicated. Roselia will [facility] Podiatry . All questions answered. documented in this encounter Plan of Treatment Scheduled Referrals Name Type Priority Associated Diagnoses Order Schedule Orthopedic Surgery office visit (clinic) Outpatient Referral Routine Expected: 04/20/2024, Expires: 06/17/2025 documented as of this encounter Visit Diagnoses Diagnosis Tendinitis Posterior Tibialis Left- Primary Neuroma Plantar Left Pain Foot Right Fasciitis Plantar Tendinitis Posterior Tibialis Right Tarsal Tunnel Syndrome Bilateral documented in this encounter Additional Health Concerns Assessment Noted Time PHQ-9 Depression Total Score: 0 03/25/20 12 9:45 AM CDT documented as of this encounter
--- OUTSIDE RECORDS SUMMARY | 2024-06-01 09:08 | XMS_ITS | Encounter Summary ---
Author Organization [facility] Address [address] [place] [address] Care Team Providers Care Property Master Name Role Phone Unavailable Primary Care Provider Unavailabl e Reason for Referral * Outpatient (Routine) - Closed Specialty Diagnoses / Procedures Referred By Emanuel patel Referred To Contact Orthopedic Surgery Diagnoses Neuroma Plantar Left Pain Foot Right Fasciitis Plantar Leonora Barkley D.PRigobertoMRigoberto [address] [place] [address] Phone: tel: fax: [facility] Referral ID Status Reason Start Date Expiration Date Visits Re quested Visits Authorized [id number] Closed 03/03/2024 09/02/2025 1 1 Reason for Visit * Reason Comments Pain Pain * Appointment Request (Routine) - Closed Specialty Diagnoses / Procedures Referred By Emanuel patel Referred To Contact Orthopedic Surgery Diagnoses Fasciitis Plantar Referral ID Status Reason Start Date Expiration Date Visits Re quested Visits Authorized [id number] Closed 11/27/2023 11/26/2024 1 1 Encounter Details Date Type Department Care Team (Latest Contact Info) Description 03/03/2024 8:00 AM CDT Comprehensive Visit Department of Orthopedic Surgery in [place], [place] [address] [place] [phone] Leonora Banuelos am, D.P.M. 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 - 03/03/2024 8:00 AM CDT SUBJECTIVE CHIEF COMPLAINT/REASON FOR VISIT Chief Complaint Patient presents with Right Foot - Pain Left Foot - Pain HISTORY OF PRESENT ILLNESS Roselia presents today for : Evaluation of pain to the right and left foot. She states her pain has been was consistent to the forefoot bilateral. She has tried multiple inserts and orthotics but has had minimal relief. REVIEW OF SYSTEMS The following portions of the patient's history were reviewed and updated as appropriate: allergies, current medications, family history, medical history, social history, surgical history, and problem list. OBJECTIVE VITAL SIGNS BP (!) 156/97 Pulse 76 Temp 36.6 ??C (Oral) PHYSICAL EXAMINATION General Appearance: Roselia is well nourished, well groomed, cooperative, alert and is in no acute distress. Lower Extremity Physical Exam: Musculoskeletal: Pain with [id number] compression of the right and left forefoot. Positive Jairon's left foot. Right heel pain is focal to the plantar fascial insertion to calcaneus. She denies any pain along the plantar fascial band to the forefoot. Motor strength normal and symmetric. No grossdeformities or dislocations. Rectus foot structure. Gait: normal gait for age. Neurological: positive Jairon's 3rd interspace left foot. Negative Jairon's right foot.Coordinationwithin normal limits. Patient is able to follow tasks as directed. Dermatological: Lower extremity: Skin evaluation: Skin, turgor, texture and color within normal limits . Toenails: Thickened nail growth with subungual debris left hallux. Vascular: intact ASSESSMENT / PLAN 1. Neuroma Plantar Left 2. Pain Foot Right 3. Fasciitis Plantar 4. Onychomycosis 5. Fibromyalgia PLAN: Discussed with the patient clinical findings Of interdigital neuroma to left foot and her symptoms are consistent on the right. Recommend we rule out metatarsalgia symptoms which can be associated with bursitis capsulitis and tendinitis. She will obtain MRI of the right and left foot. She hasbeen fit with custom orthotics and is given a prescription for new custom orthotics or will follow with her orthotists for new top cover. Penlac is prescribed for onychomycosis. Assessment for Roselia will be ongoing with changes in treatment as indicated. Roselia will follow with Podiatry review MRIs. All questions answered. documented in this encounter Plan of Treatment Scheduled Referrals Name Type Priority Associated Diagnoses Order Schedule Orthopedic Surgery office visit (clinic) Outpatient Referral Routine Neuroma Plantar Left Pain Foot Right Fasciitis Plantar 1 Occurrences starting 03/03/2024 until 06/02/2025 documented as of this encounter Visit Diagnoses Diagnosis Neuroma Plantar Left- Primary Pain Foot Right Fasciitis Plantar Onychomycosis Fibromyalgia documented in this encounter Additional Health Concerns Assessment Noted Time PHQ-9 Depression Total Score: 0 03/25/20 12 9:45 AM CDT documented as of this encounter
--- OUTSIDE RECORDS SUMMARY | 2024-06-01 09:08 | XMS_ITS | Encounter Summary ---
Author Organization [facility] Address [address] [place] [address] Care Team Providers Care Cutter Apprentice Hand Name Role Phone Unavailable Primary Care Provider Unavailabl e Reason for Visit * Reason Comments Med Refill Encounter Details Date Type Department Care Team (Late st Contact Info) Description 05/21/2024 Refill Department of Orthopedic Surgery in [place], [place] [address] [place] [phone] Leonora Barkley D.PRigobertoMRigoberto [address] [place] [phone] Med Refill Social History Tobacco Use Types Packs/Day Years [...] on file 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 - 05/25/2024 12:03 PM EXECUTIVE PRODUCER Spoke with Roselia via phone call, she did not request this refill and stated that she does not think it actually helps. She will call her pharmacy, decline current refill and cancel recurrent prescriptions. UTIVE PRODUCER documented in this encounter Plan of Treatment Not on file documented as of this encounter Visit Diagnoses Diagnosis Fasciitis Plantar Tendinitis Posterior Tibialis Left Tendinitis Posterior Tibialis Right Tarsal Tunnel Syndrome Bilateral documented in this encounter Additional Health Concerns Assessment Noted Time PHQ-9 Depression Total Score: 0 03/25/20 12 9:45 AM CDT documented as of this encounter
--- OUTSIDE RECORDS SUMMARY | 2024-06-01 09:08 | XMS_ITS | Encounter Summary ---
Author Organization [facility] Address [address] [place] [address] Care Team Providers Care Fiberglass Luggage Molder Name Role Phone Unavailable Primary Care Provider Unavailabl e Reason for Visit * Reason Comments Pain Review MRI Results Pain Review MRI Results * Outpatient (Routine) - Closed Specialty Diagnoses / Procedures Referred By Emanuel patel Referred To Contact Orthopedic Surgery Leonora Barkley D.PLenin [address] [place] [address] Phone: tel: fax: [facility] Referral ID Status Reason Start Date Expiration Date Visits Re quested Visits Authorized [id number] Closed 03/18/2024 09/17/2025 1 1 Encounter Details Date Type Department Care Team (Late st Contact Info) Description 04/20/2024 8:30 AM CDT Office Visit Department of Orthopedic Surgery in [place], [place] [address] [place] [phone] Leonora Barkley D.PRigobertoMRigoberto [address] [place] [phone] Tarsal Tunnel Syndrome Bilateral (Primary Dx); Onychomycosis; Neuroma Plantar Left; Neuroma Plantar Right Discharge Disposition: Home or Self Care Social [...] on file 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 - 04/20/2024 8:30 AM CDT SUBJECTIVE CHIEF COMPLAINT/REASON FOR VISIT Chief Complaint Patient presents with Right Foot - Pain Review MRI Results Left Foot - Pain Review MRI Results HISTORY OF PRESENT ILLNESS Roselia presents today for : Follow-up right and left foot pain. Patient has been fit with new custom orthotics stating she has had some improvement over the past couple weeks. OBJECTIVE VITAL SIGNS There were no vitals taken for this visit. PHYSICAL EXAMINATION General Appearance: Roselia is well nourished, well groomed, cooperative, alert and is in no acute distress. Lower Extremity Physical Exam: Musculoskeletal: Bilateral heel pain is focal to the plantar fascial insertion to calcaneus. She denies any pain along the plantar fascial band to the forefoot. Sharp pain when pressure is applied through the tarsal tunnel bilateral. Pain shoes distally towards the great toe of the right foot. Motor strength normal and symmetric. No gross deformities or dislocations. Rectus foot structure. Gait: normal gait for age. Neurological: Positive Tinel's bilateral. Positive Jairon's interspace left foot. Negative Jairon'sright foot. Patient describes an itching feeling to the plantar aspect of the right and the foot. Coordination within normal limits. Patient is [...] third metatarsal heads. ASSESSMENT / PLAN 1. Tarsal Tunnel Syndrome Bilateral 2. Onychomycosis 3. Neuroma Plantar Left 4. Neuroma Plantar Right PLAN: She continues to have symptoms consistent with tarsal tunnel bilateral. Recommend cortisone injection bilateral. Will schedule this in the future when she has assistance for driving. Continued to Penlac bilateral hallux. Assessment for Roselia will be ongoing with changes in treatment as indicated. Roselia will follow with Podiatry . All questions answered. documented in this encounter Plan of Treatment Not on file documented as of this encounter Visit Diagnoses Diagnosis Tarsal Tunnel Syndrome Bilateral- Primary Onychomycosis Neuroma Plantar Left Neuroma Plantar Right documented in this encounter Additional Health Concerns Assessment Noted Time PHQ-9 Depression Total Score: 0 03/25/20 12 9:45 AM CDT documented as of this encounter
--- OUTSIDE RECORDS SUMMARY | 2024-06-01 09:08 | XMS_ITS | Clinical Summary ---
Author Organization [facility] Address [address] [place] [address] Care Team Providers Care Honeycomb Decapper Name Role Phone Unavailable Primary Care Provider Unavailabl e Source Comments Patient records contain information from all sites at [facility]. For routine questions regarding patient records, call [phone] during business hours, M-F 8:00 AM - 5:00 PM Central Time. Record requests for emergency care only can be directed to [phone] at any time.[facility] Allergies No known active allergies Medications fluticasone propionate (FLONASE) 50 mcg/actuation nasal spray Administer 2 sprays into nostril(s) once. 03/01/20 20 Active pantoprazole (PROTONIX) 40 mg EC tablet Take 40 mg by mouth daily. 03/01/20 20 Active cholecalcifero l (VITAMIN D3) 5,000 Unit tablet Take 5,000 Units by mouth daily. 04/16/20 18 Active diclofenac sodium (Voltaren) 1 % gelIndications :Neuroma Plantar Left,Pain Foot Right,Fasciiti s Plantar Apply 2 g topically 4 (four) times a day. Apply to soles of feet. 450 g 1 03/18/20 24 Active ciclopirox (Penlac) 8 % external solutionIndica tions:Onychomy cosis Apply 1 Application topically at bedtime. Apply over nail and surrounding skin. Apply daily over previous coat. After seven (7) days, may remove with alcohol and continue cycle. 6.6 mL 5 04/20/20 24 Active meloxicam (Mobic) 7.5 mg tabletIndicati ons:Fasciitis Plantar,Tendin itis Posterior Tibialis Left,Tendiniti s Posterior Tibialis Right,Tarsal Tunnel Syndrome Bilateral TAKE 2 TABLETS BY MOUTH EVERY DAY 60 tablet 1 05/25/20 24 Active meloxicam (Mobic) 7.5 mg tabletIndicati ons:Fasciitis Plantar,Tendin itis Posterior Tibialis Left,Tendiniti s Posterior Tibialis Right,Tarsal Tunnel Syndrome Bilateral Take 2 tablets (15 mg total) by mouth daily. 60 tablet 1 03/18/20 24 024 Discontinued Active Problems No known active problems Encounters Date Type Department Care Team Description 05/21/2024 Refill Department of Orthopedic Surgery in [address] [phone] Leonora Fernández D.PLenin Med Refill 04/20/2024 8:30 AM CDT Office Visit Department of Orthopedic Surgery in [address] [phone] Leonora Fernández D.P.MRigoberto Tarsal Tunnel Syndrome Bilateral (Primary Dx); Onychomycosis; Neuroma Plantar Left; Neuroma Plantar Right Discharge Disposition: Home or Self Care 03/18/2024 9:15 AM CDT Office Visit Department of Orthopedic Surgery in [address] [phone] Leonora Fernández D.PRigobertoMRigoberto Tendinitis Posterior Tibialis Left (Primary Dx); Neuroma Plantar Left; Pain Foot Right; Fasciitis Plantar; Tendinitis Posterior Tibialis Right; Tarsal Tunnel Syndrome Bilateral Discharge Disposition: Home or Self Care 03/16/2024 7:28 AM CDT - 03/16/2024 11:59 PM CDT Hospital Encounter Department of Radiology in [address] [phone] Leonora Fernández D.PRigobertoMRigoberto Neuroma Plantar Left; Pain Foot Right Discharge Disposition: Home or Self Care 03/03/2024 8:00 AM CDT Comprehensive Visit Department of Orthopedic Surgery in [address] [phone] Leonora Fernández D.PRigobertoMRigoberto Neuroma Plantar Left (Primary Dx); Pain Foot Right; Fasciitis Plantar; Onychomycosis; Fibromyalgia Discharge Disposition: Home or Self Care 03/03/2024 Clinical Communication Department of Orthopedic Surgery in [place], [place] [address] [place] [phone] Leonora Fernández D.PRigobertoMRigoberto Follow-up Orders; Appt Request; After Visit Question from Last 3 Months Family History Medical History Relation Name Comments Coronary artery disease Father Valv e replacement. 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 Gender Identity Not on file Sexual Orientation Not on file Last Filed Vital Signs Vital Sign Reading Time Taken Comments Blood Pressure 156/97 03/03/2024 7:48 AM CDT Pulse 76 03/03/2024 7:48 AM CDT Temperature 36.6 C (97.8 F) 03/03/2024 7:48 AM CDT Respiratory Rate 18 01/02/2014 4:12 PM CDT Oxygen Saturation - - Inhaled Oxygen Concentration - - Weight 82.7 kg (182 lb 5.1 oz) 04/19/2020 1:50 P M CDT Height 169 cm (5' 6.54) 04/19/2020 1:50 PM CDT Body Mass Index 28.96 04/19/2020 1:50 PM CDT Plan of Treatment Health Maintenance Due Date Last Done Comments CT Colonography 1972 Cologuard 1972 Colonoscopy 1972 Colorectal Cancer Screening 1972 FIT 1972 HIV Screening 1972 Hepatitis C Screening 1972 Pneumococcal vaccine (0-64 years) (1 of 2 - PCV) 1978 Hepatitis B Vaccines (1 of 3 - 19+ 3-dose series) 1991 Cervical/Vaginal Cancer Screening 2013 2010 Mammogram 04/17/2022 04/17/2021, 03/25, 03/01/2020, Additional history exists Zoster Vaccines (1 of 2) 2022 Depression Screening (Annual PHQ-2) 06/24/2023 DTaP,Tdap,and Td Vaccines (3 - Td or Tdap) 08/18/2023 08/18/2013, 02/28/2005 COVID-19 Vaccine (3 - 2023- season) 2024 08/03/2021, 07/06/2021 Influenza Vaccine (#1) 2024 Fasting Glucose for Diabetes Screening 04/17/2024 04/17/2021, 03/01/2020, 02/24/2019, Additional history exists Office Visit for Blood Pressure Check / Re-check 06/02/2024 03/03/2024 Lipid (Cholesterol) Screening 04/17/2026 04/17/2021, 03/01/2020, 02/24/2019, Additional history exists IPV Vaccines Aged Out No longer eligi ble based on patient's age to complete this topic Procedures Procedure Name Priority Date/Time Associated Diagnosis Comments MR FOOT RIGHT WITHOUT AND WITH IV CONTRAST RAD - Routine (most inpatients and all outpatients) 03/16/2024 9:38 AM CDT Pain Foot Right MR FOOT LEFT WITHOUT AND WITH IV CONTRAST RAD - Routine (most inpatients and all outpatients) 03/16/2024 9:38 AM CDT Neuroma Plantar Left BASIC METABOLIC PANEL, S/P Routine 01/02/2014 2:26 PM CDT from Last 3 Months or Most Recently Relevant to Health Maintenance Results * MR Foot Left without and with IV Contrast (03/16/2024 9:38 AM CDT) Anatomical Region Laterality Modality Lower Extremity, Foot, Muscu loskeletal RST LOS, Musculoskeletal ARZ LOS, Muskuloskeletal FLA LOS Left Magne tic Resonance Impressions 03/16/2024 10:22 AM CDT 1. Negative for fracture, stress fracture, or bone marrow stress reaction. 2. Postop changes from instrumented osteotomies of the first metatarsal and great toe proximal phalanx. 3. Mild changes of chondrosis across the second and third TMT articulations. 4. Probable interdigital neuroma interspersed between the plantar aspect of the second and third metatarsal heads. Narrative 03/16/2024 10:22 AM CDT EXAM: MR FOOT LEFT WITHOUT AND WITH IV CONTRAST COMPARISON:Images are interpreted without comparison. FINDINGS: Bone marrow/joint spaces: There is no evidence of fracture, stress fracture, or bone marrow stress reaction demonstrated. Postoperative changes from prior instrumented osteotomies of the first metatarsal as well as great toe proximal phalanx, with mild associated susceptibility artifact. Included naviculocuneiform, intercuneiform, and tarsometatarsal alignment is within normal limits. There are mild changes of chondrosis present at the second and third tarsometatarsal articulations with mild associated subchondral marrow edema. The Lisfranc ligamentous complex appears within normal limits. Imaged flexor and extensor tendons are intact. Plantar fascial aponeurosis appears within normal limits. Normal-appearing intrinsic muscle bulk/signal. Probable dilated venous varix along the undersurface of the third metatarsal shaft. Within the limitations of artifact, no significant intermetatarsal bursitis. Probable interdigital neuroma seen between the bases of the second and third metatarsal heads, with lobular T1 hypointense morphology and homogeneous postcontrast enhancement (series 21, image 22) measuring approximately 5 x 4 mm in size. Normal-appearing intrinsic muscle bulk and signal. Procedure Note Shaun John M.D. - 03/16/2024 EXAM: MR FOOT LEFT WITHOUT AND WITH IV CONTRAST COMPARISON:Images are interpreted without comparison. FINDINGS: Bone marrow/joint spaces: There is no evidence of fracture, stressfracture, or bone marrow stress reaction demonstrated. Postoperativechanges from prior instrumented osteotomies of the first metatarsal aswell as great toe proximal phalanx, with mild associated susceptibility artifact. Included naviculocuneiform, intercuneiform, and tarsometatarsal alignmentis within normal limits. There are mild changes of chondrosis present atthe second and third tarsometatarsal articulations with mild associatedsubchondral marrow edema. The Lisfranc ligamentous complex appears within normal limits. Imaged flexor and extensor tendons are intact. Plantar fascial aponeurosisappears within normal limits. Normal-appearing intrinsic musclebulk/signal. Probable dilated venous varix along the undersurface of thethird metatarsal shaft. Within the limitations of artifact, no significant intermetatarsalbursitis. Probable interdigital neuroma seen between the bases of thesecond and third metatarsal heads, with lobular T1 hypointense morphologyand homogeneous postcontrast enhancement (series 21, image 22) measuring approximately 5 x 4 mm in size. Normal-appearing intrinsic muscle bulk and signal. IMPRESSION: 1. Negative for fracture, stress fracture, or bone marrow stressreaction. 2. Postop changes from instrumented osteotomies of the first metatarsaland great toe proximal phalanx. 3. Mild changes of chondrosis across the second and third TMTarticulations. 4. Probable interdigital neuroma interspersed between the plantar aspectof the second and third metatarsal heads. Leonora Barkley D.P.M. IMG MRI PROCED URES Final Result * MR Foot Right without and with IV Contrast (03/16/2024 9:38 AM CDT) Anatomical Region Laterality Modality Lower Extremity, Foot, Muscu loskeletal RST LOS, Musculoskeletal ARZ LOS, Muskuloskeletal FLA LOS Right Magne tic Resonance Impressions 03/16/2024 10:25 AM CDT 1. Postoperative changes across the first and second rays as above. Negative for fracture, marrow contusion, or bone marrow stress reaction. 2. Mild changes of chondrosis across the second and third TMT articulations. 3. No significant intermetatarsal bursitis or findings to suggest an interdigital neuroma allowing for artifact. Narrative 03/16/2024 10:25 AM CDT EXAM: MR FOOT RIGHT WITHOUT AND WITH IV CONTRAST COMPARISON:Images are interpreted without comparison. FINDINGS: Bone marrow/joint spaces: There is no fracture, stress fracture, or bone marrow stress reaction demonstrated. Artifact incurred from surgical instrumentation related to prior reduction and internal fixation of the second metatarsal shaft fracture with additional instrumentation pertaining to instrumented osteotomy site of the first metatarsal and great toe proximal phalanx. The intercuneiform articulations appear within normal limits. Mild changes of chondrosis at the second and third tarsometatarsal articulations. Mild first MTP/MTS arthrosis. Included Lisfranc ligamentous structures appear within normal limits. Flexor and extensor tendons are intact as visualized. Normal intrinsic muscle bulk and signal. Intact plantar fascial aponeurosis. No significant intermetatarsal bursal fluid accumulation or convincing abnormalities to suggest an interdigital neuroma allowing for artifact incurred from indwelling surgical instrumentation. Procedure Note Shaun John M.D. - 03/16/2024 EXAM: MR FOOT RIGHT WITHOUT AND WITH IV CONTRAST COMPARISON:Images are interpreted without comparison. FINDINGS: Bone marrow/joint spaces: There is no fracture, stress fracture, or bonemarrow stress reaction demonstrated. Artifact incurred from surgicalinstrumentation related to prior reduction and internal fixation of thesecond metatarsal shaft fracture with additional instrumentation pertaining to instrumented osteotomy site ofthe first metatarsal and great toe proximal phalanx. The intercuneiform articulations appear within normal limits. Mild changesof chondrosis at the second and third tarsometatarsal articulations. Mildfirst MTP/MTS arthrosis. Included Lisfranc ligamentous structures appear within normal limits. Flexor and extensor tendons are intact as visualized. Normal intrinsicmuscle bulk and signal. Intact plantar fascial aponeurosis. No significant intermetatarsal bursal fluid accumulation or convincingabnormalities to suggest an interdigital neuroma allowing for artifactincurred from indwelling surgical instrumentation. IMPRESSION: 1. Postoperative changes across the first and second rays as above.Negative for fracture, marrow contusion, or bone marrow stress reaction. 2. Mild changes of chondrosis across the second and third TMTarticulations. 3. No significant intermetatarsal bursitis or findings to suggest aninterdigital neuroma allowing for artifact. Leonora Barkley D.P.M. IMG MRI PROCED URES Final Result * (ABNORMAL) BMP (Basic Metabolic Panel) (01/02/2014 2:26 PM CDT) Anion Gap 13 10 - 20 MMOLL POWERCHART BUN (Blood Urea Nitrogen), S 9 7 - 18 MGDL POWERCHART Chloride, S 101 98 - 107 MMOLL POWERCHART CO2 Total 23.2 23.0 - 29.0 MMOLL POWERCHART Creatinine 0.89 0.60 - 1.30 MGDL POWERCHART Glucose 134 70 - 139 MGDL POWERCHART Calcium, Total, S 9.6 8.6 - 10.0 MGDL POWERCHART Sodium, S 133.7(L) 135.0 - 145.0 MML POWERCHART Potassium, S 3.8 3.6 - 4.8 MMOLL POWERCHART HXeGFR (MDRD) >60 >=60 [id number] POWERCHART eGFR Black/ >60 >=60 [id number] POWERCHART Blood 01/02/2014 2:26 PM CDT Ashley Tan M.D. LAB BLOOD ADD-ON Final Res ult POWERCHART from Last 3 Months or Most Recently Relevant to Health Maintenance Insurance [employer]
--- OUTSIDE RECORDS SUMMARY | 2024-06-01 09:08 | XMS_ITS | Encounter Summary ---
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
--- OUTSIDE RECORDS SUMMARY | 2024-06-01 09:08 | XMS_ITS ---
Author Organization [facility] Address [address] [place] [address] Care Team Providers Care Fly Finisher Name Role Phone Unavailable Unavailable Unavailable Surgery Details Not on file Complications Check Surgery Details section. Procedure Estimated Blood Loss Check Surgery Details section. Procedure Findings Check Surgery Details section. Procedure Specimens Taken Check Surgery Details section.
--- OUTSIDE RECORDS SUMMARY | 2024-06-01 09:08 | XMS_ITS | Encounter Summary ---
Author Organization [facility] Address [address] [place] [address] Care Team Providers Care Ultrasound Spec Name Role Phone Unavailable Primary Care Provider Unavailabl e Reason for Visit * MRI/CAT/PET Scan (Routine) - Closed Specialty Diagnoses / Procedures Referred By Emanuel t Referred To Contact Radiology Diagnoses Pain Foot Right Procedures MR Foot Right without and with IV Contrast MR Foot Right without IV Contrast Leonora Barkley D.P.MRigoberto [address] [place] [phone] Phone: tel: fax: [facility] Region Referral ID Status Reason Start Date Expiration Date Visits Re quested Visits Authorized [id number] Closed 03/03/2024 03/03/2025 1 1 Encounter Details Date Type Department Care Team (Latest Contact Info) Description 03/16/2024 7:28 AM CDT - 03/16/2024 11:59 PM CDT Hospital Encounter Department of Radiology in [place], [place] [address] [place] [phone] Leonora Magana D.PRigobertoMRigoberto [address] [place] [phone] Neuroma Plantar Left; Pain Foot Right Discharge Disposition: Home or Self Care Social History Tobacco Use Types Packs/Day Years Used Date Smoking Tobacco: Every Day Cigarettes Smokeless Tobacco: Never Nutrition Answer Date Recorded Nutrition: EVOO Fat Source Unknown 08/25 Nutrition: Servings of Fruits/Vegetables per Day Not on file 08/25/2020 Dental Answer Date Recorded Dental: Regular Dentist Unknown 06/10/20 24 Comments Unknown Sex and Gender Information Value Date Recorded Sex Assigned at Not on file 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 04/16/2018 fluticasone propionate (FLONASE) 50 mcg/actuation nasal spray Administer 2 sprays into nostril(s) once. 03/01/2020 pantoprazole (PROTONIX) 40 mg EC tablet Take 40 mg by mouth daily. 03/01/2020 ciclopirox (Penlac) 8 % external solutionIndicati ons:Onychomycosi s Apply 1 Application topically at bedtime. Apply over nail and surrounding skin. Apply daily over previous coat. After seven (7) days, may remove with alcohol and continue cycle. 6.6 mL 03/03/2024 4 documented as of this encounter Plan of Treatment Not on file documented as of this encounter Procedures Procedure Name Priority Date/Time Associated Diagnosis Comments MR FOOT LEFT WITHOUT AND WITH IV CONTRAST RAD - Routine (most inpatients and all outpatients) 03/16/2024 9:38 AM CDT Neuroma Plantar Left MR FOOT RIGHT WITHOUT AND WITH IV CONTRAST RAD - Routine (most inpatients and all outpatients) 03/16/2024 9:38 AM CDT Pain Foot Right documented in this encounter Results * MR Foot Right without and with [...] PROCED URES Final Result * MR Foot Left without and with [...] the second and third metatarsal heads. Leonora CELIS MRI PROCED URES Final Result documented in this encounter Visit Diagnoses Diagnosis Neuroma Plantar Left Pain Foot Right documented in this encounter Administered Medications Inactive Administered Medications - up to 3 most recent administrations Medication Order MAR Action Action Date Dose Rate Site gadobutrol injection 10 mL (Gadavist) 10 mL, intravenous, Once in imaging, contrast, Starting on 03/16/24 at 0730, For 1 dose, Intrathecal doses greater than 0.25 mL not recommended. Given 03/16/2024 9:00 AM CDT 8.5 mL documented in this encounter Additional Health Concerns Assessment Noted Time PHQ-9 Depression Total Score: 0 03/25/20 12 9:45 AM CDT documented as of this encounter
--- OUTSIDE RECORDS SUMMARY | 2024-06-01 09:08 | XMS_ITS | Clinical Summary ---
Author Organization [email or web address] [facility] Address [place], [place] [address] Care Team Providers Care Foot Press Operator Name Role Phone Pcp, No Primary Care Provider Unavailabl e Allergies No known active allergies Medications triamcinolone 0.5% (ARISTOCORT) 0.5 % creamIndications :Rash Apply topically to affected area(s) 3 times daily. As needed in vaginal area 15 g 3 1 Active azelastine-fluti casone, 137-50 mcg per actuation, (DYMISTA) 137-50 mcg/spray nasal sprayIndications :Allergic rhinitis, unspecified seasonality, unspecified trigger Inhale 1 [place] to both nostrils 2 times daily. 1 Each 2 1 Active montelukast (SINGULAIR) 10 mg tabletIndication s:Allergic rhinitis, unspecified seasonality, unspecified trigger Take 1 Tablet (10 mg) by mouth at bedtime. 30 Tablet 3 1 Active pantoprazole (PROTONIX) 40 mg delayed-release tabletIndication s:Laryngopharyng eal reflux disease Take 1 Tablet (40 mg) by mouth once daily before a meal. 90 tablet. 3 1 Active cholecalciferol (Vitamin D-3) 2,000 unit capsule Take 1 Capsule (2,000 units) by mouth once daily. 0 1 Active pimecrolimus (ELIDEL) 1 % cream 1 Active magnesium oxide (MAG-OX 400) 400 mg tablet Take 1 Tablet (400 mg) by mouth once daily. 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 [facility] Urinary frequency 02/03/2018 Irritant contact dermatitis due to other agents 01/15/2018 Oral herpes simplex infection 03/15/2016 Overview (03/15/2016): Since childhood Vitamin D deficiency 10/04/2014 Hyperlipidemia 10/04/2014 Varicose veins 01/22/2013 Overview (01/22/2013): Surgical treatment 2003 Esophageal reflux 08/07/2012 Overview (10/01/2012): EGD 09/2012 esophageal and gastric erosions from [...] Paying Living Expenses Not on file 06/19/2021 Comments No Sex and Gender Information Value Date Recorded Sex Assigned at Not on file 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 Gender Identity Not on file Sexual Orientation Not on file Occupation Industry Job Start Date Job End Date Not on file Not on file Not on file Not on file Not on file Not on file Not on file Not on file Obstetrics History Para Term AB IAB SAB Ectopic Multiple Livin g Live Births 2 2 2 2 Date Outcome GA Total Labor Labor/2nd/3rd Weight Sex Type Anes PTL Marleny A1 A5 Name Clin Term Term Last Filed Vital Signs Vital Sign Reading Time Taken Comments Blood Pressure 144/87 08/29/2021 10:55 AM LASER PRINT OPERATOR Pulse 86 08/29/2021 10:55 AM LASER PRINT OPERATOR Temperature 36.8 C (98.3 F) 07/25/2021 12:03 PM LASER PRINT OPERATOR Respiratory Rate 16 05/30/2021 9:13 AM LASER PRINT OPERATOR Oxygen Saturation 99% 08/29/2021 10:55 AM LASER PRINT OPERATOR Inhaled Oxygen Concentration - - Weight 76.7 kg (169 lb) 08/29/2021 10:55 AM LASER PRINT OPERATOR Height 167.6 cm (5' 6) 07/25/2021 12:03 PM LASER PRINT OPERATOR Body Mass Index 27.28 07/25/2021 12:03 PM LASER PRINT OPERATOR Plan of Treatment Health Maintenance Due Date [...] 08/29/2022 08/29/2021, 04/18/2021, 04/17/2021, Additional history exists Tetanus booster 08/18/2023 08/18/2013, 02/28/2005 COVID-19 vaccine series ( season) 2024 08/03/2021, 07/06/2021 Influenza for age 50-64 02/23/2024 Lipids for [...] Name Priority Date/Time Associated Diagnosis Comments HPV HIGH RISK Routine 04/26/2022 9:30 AM CDT XR MAMMO BILAT SCREENING Routine 04/17/2021 9:38 AM CDT Visit for screening mammogram LIPID PANEL W REFLEX MEASURED LDL Routine 04/17/2021 8:56 AM CDT Screening for lipoid disorders from Last 3 Months or Most Recently Relevant to Health Maintenance Results * HPV HIGH RISK (04/26/2022 9:30 AM CDT) TYPE 16 Negative Negative 04/28/2022 3:15 PM CDT [facility] TYPE 18 Negative Negative 04/28/2022 3:15 PM CDT [facility] OTHER HIGH RISK TYPES Negative Negative 04/28/2022 3:15 PM CDT [facility] Other (Cervical) 04/26/2022 9:30 AM CDT 04/27/2022 7:[address] [facility] - 04/28/2022 3:15 PM CDT HPV types 16, 18, 31, 33, 35, 39, 45, 51, 52, 56, 58, 59, 66 and 68 DNA were undetectable or below the pre-set threshold. Methodology: [employer] 4800 HPV Test September Tom [facility] Final Resu lt [facility] [address] [place] [address], [place] * XR MAMMO BILAT SCREENING (04/17/2021 9:38 AM CDT) Anatomical Region Laterality Modality BREASTS, Breast Left, Breast Right Bilateral Mammography Impressions 04/17/2021 4:13 PM CDT There is no radiographic evidence for malignancy. Recommend annual mammograms. MAMMOGRAM ASSESSMENT: ACR 1 Negative PATIENTS: You will also receive a letter with your examination results in an easy to read format. If you have questions about your results, please contact your referring provider. Narrative 04/17/2021 4:13 PM CDT For Patients: As a result of the Cures Act, medical imaging exams and procedure reports are released immediately into your electronic medical record. You may view this report before your referring provider. If you have questions, please contact your health care provider. XR MAMMO BILAT SCREENING [[id number]] CLINICAL HISTORY: This is an asymptomatic 50 y.o. patient. INDICATION FOR EXAM: Mammogram Screening. TECHNIQUE: CC & MLO views were obtained. This study was evaluated with the assistance of Computer-Aided Detection. COMPARISON FILM: Yes 03/01/20 DotBlu 02/24/19 DotBlu FINDINGS: The breasts are heterogeneously dense, which may obscure small masses. There are no dominant masses, suspicious micro calcifications or areas of architectural distortion. Nirmala Piña MD MAMMO Fi nal Result * (ABNORMAL) LIPID PANEL W REFLEX MEASURED LDL (04/17/2021 8:56 AM CDT) CHOLESTEROL,TOTAL 272(H) 100 - 199 mg/dL 04/17/2021 3:10 PM CDT [facility] TRIGLYCERIDES 129 <150 mg/dL 04/17/2021 3:10 PM CDT [facility] HDL CHOLESTEROL 55 >40 mg/dL 3:10 PM CDT [facility] NON-HDL CHOLESTEROL 217(H) <145 mg/dl 04/17/2021 3:10 PM CDT [facility] CHOL/HDL RATIO 4.95(H) <4.50 04/17/2021 3:10 PM CDT [facility] LDL CHOLESTEROL 191(H) <=130 mg/dL 04/17/2021 3:10 PM CDT [facility] VLDL CHOLESTEROL 26 <=30 mg/dL 04/17/2021 3:10 PM CDT [facility] PROVIDER ORDERED STATUS RANDOM 04/17/2021 3:10 PM CDT [facility] Blood BLOOD SPECIMEN / Unknown Venipuncture / Unknown 04/17/2021 8:56 AM CDT 04/17/2021 8:56 AM CDT Nirmala Piña MD CHEMISTRY Fi nal Result [facility] [address] [place] [address], [place] from Last 3 Months or Most Recently Relevant to Health Maintenance Insurance ZEHRA ANNA * Guarantor: NASEEM BANRARD Account Type Relation to Patient Date of Phone Billing Address [facility] [employer] Employer ATTN [employer] PAYABLE [address] [place] [address] Care Teams Foot Press Operator Relationship Specialty Start Date End Date Pcp, No . PCP - General 10/21/21
--- OUTSIDE RECORDS SUMMARY | 2024-06-01 09:08 | XMS_ITS | Referral Summary ---
Author Organization [facility] Address [address] [place] [address] Care Team Providers Care Data Warehouse Architect Name Role Phone Unavailable Primary Care Provider Unavailabl e Source Comments Patient records contain information from all sites at [facility]. For routine questions regarding patient records, call [phone] during business hours, M-F 8:00 AM - 5:00 PM Central Time. Record requests for emergency care only can be directed to [phone] at any time.[facility] Encounters Date Type Department Care Team Description 05/21/2024 Refill Department of Orthopedic Surgery in [address] [phone] Leonora Fernández D.P.M. Med Refill 04/20/2024 8:30 AM CDT Office Visit Department of Orthopedic Surgery in [address] [phone] Leonora Fernández D.P.M. Tarsal Tunnel Syndrome Bilateral (Primary Dx); Onychomycosis; Neuroma Plantar Left; Neuroma Plantar Right Discharge Disposition: Home or Self Care 03/18/2024 9:15 AM CDT Office Visit Department of Orthopedic Surgery in [address] [address] Leonora Fernández D.P.M. Tendinitis Posterior Tibialis Left (Primary Dx); Neuroma Plantar Left; Pain Foot Right; Fasciitis Plantar; Tendinitis Posterior Tibialis Right; Tarsal Tunnel Syndrome Bilateral Discharge Disposition: Home or Self Care 03/16/2024 7:28 AM CDT - 03/16/2024 11:59 PM CDT Hospital Encounter Department of Radiology in [address] [phone] Leonora Fernández D.PLenin Neuroma Plantar Left; Pain Foot Right Discharge Disposition: Home or Self Care 03/03/2024 Clinical Communication Department of Orthopedic Surgery in [address] [phone] Leonora Fernández D.PLenin Follow-up Orders; Appt Request; After Visit Question 03/03/2024 8:00 AM CDT Comprehensive Visit Department of Orthopedic Surgery in [address] [phone] Leonora Fernández D.PLenin Neuroma Plantar Left (Primary Dx); Pain Foot Right; Fasciitis Plantar; Onychomycosis; Fibromyalgia Discharge Disposition: Home or Self Care from Last 3 Months Allergies No known active allergies Medications fluticasone [...] Discontinued Active Problems No known active problems Social History Tobacco Use Types Packs/Day Years [...] on file 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 LAB BLOOD ADD-ON Final Res ult POWERCHART from Last 3 Months or Most Recently Relevant to Health Maintenance Insurance [employer]
--- NOTE | 2024-06-01 10:26 | W.ANESCHARGE ---
Anesthesia Charges Start Date/Time Anesthesia Start Date: 06/01/24 Anesthesia Start Time: 09:49 Stop Date/Time Anesthesia Stop Date: 06/01/24 Anesthesia Stop Time: 10:24
--- NOTE | 2024-06-01 10:55 | W.ANESCHARGE ---
Anesthesia Charges Start Date/Time Anesthesia Start Date: 06/01/24 Anesthesia Start Time: 09:49 Stop Date/Time Anesthesia Stop Date: 06/01/24 Anesthesia Stop Time: 10:24
== END 2024-06-01 09:06 | disposition home or self-care (01) ==
LOC: OP CLINIC 09:05
PROVIDERS: PCP Family Medicine; Visit Provider Internal Medicine
DX: Z86.0100 Personal history of colon polyps, unspecified (principal); D12.8 Benign neoplasm of rectum; D12.5 Benign neoplasm of sigmoid colon
CPT/HCPCS: 00811; 45380; 88305; J2704

== ENCOUNTER 2024-09-21 08:33 | Outpatient (CLI) | payer OTHER, SELFPAY ==
--- NOTE | 2024-09-21 09:00 | CRLHL7_ITS ---
For Patients: As a result of the Century Cures Act, medical imaging exams and procedure reports are released immediately into your electronic medical record. You may view this report before your referring provider. If you have questions, please contact your health care provider. Indication: ABD PAIN. LOWER PELVIC AREA. LBP Technique: CT Abdomen/Pelvis 96CC ISOVUE 370 AND WATER PREP Please note that all CT scans at this facility use dose modulation, iterative reconstruction, and/or weight-based dosing when appropriate to reduce radiation dose to as low as reasonably achievable. Comparison: None Findings: Unilateral pars defect is present on the right at L5. No spondylolisthesis. No vertebral body compression fracture. Dependent atelectasis in both lung bases. No pleural effusion. No intrahepatic mass. Gallbladder normal. Pancreas is within normal limits. Normal spleen. Diffuse thickening of the left adrenal gland. No adrenal nodule. Unremarkable right adrenal gland. Sub cm cyst within the lower pole of the right kidney. No hydronephrosis. Gallbladder absent. No biliary obstruction. Atherosclerotic changes. No aneurysm. No enlarged lymph nodes. Normal uterus, ovaries and bladder. No bowel obstruction, free air, free fluid or abscess. Normal appendix. No abdominal wall hernia. Normal ureters. Impression: No acute findings within the abdomen and pelvis. Status post cholecystectomy without biliary obstruction. Unilateral pars defect is present on the right at L5 without spondylolisthesis. Please note that all CT scans at this facility use dose modulation, iterative reconstruction, and/or weight-based dosing when appropriate to reduce radiation dose to as low as reasonably achievable. Dictated by Shaun Agudelo MD @ 09/21/2024 11:36:13 AM (Electronically Signed)
== END 2024-09-21 08:34 | disposition home or self-care (01) ==
LOC: CT 08:33
PROVIDERS: PCP Family Medicine; Visit Provider Family Medicine
DX: R10.9 Unspecified abdominal pain (principal); M43.16 Spondylolisthesis, lumbar region; M54.50 Low back pain, unspecified
CPT/HCPCS: 74177; Q9967

== ENCOUNTER 2024-10-01 09:36 | Outpatient (CLI) | payer OTHER, SELFPAY ==
[2024-10-01 11:58] LABS: Bacterial Vaginosis* Negative (Negative); Candida glab/krus NOT DETECTED (No Detected); Candida species NOT DETECTED (No Detected); Trichomonas vaginalis NOT DETECTED (No Detected)
== END 2024-10-01 09:37 | disposition home or self-care (01) ==
LOC: NFLDREF 09:47
PROVIDERS: PCP Family Medicine; Visit Provider Physician Assistant
DX: N89.8 Other specified noninflammatory disorders of vagina (principal); N90.89 Other specified noninflammatory disorders of vulva and perineum
CPT/HCPCS: 81513; 87481; 87661

== ENCOUNTER 2024-11-05 09:00 | Outpatient (CLI) | payer OTHER, SELFPAY ==
--- NOTE | 2024-11-05 09:15 | CRLHL7_ITS ---
For Patients: As a result of the 21st Century Cures Act, medical imaging exams and procedure reports are released immediately into your electronic medical record. You may view this report before your referring provider. If you have questions, please contact your health care provider. CLINICAL INDICATION: Left knee pain. COMPARISON STUDIES: Radiographs from 10/19/2024. TECHNICAL: Noncontrast MRI of the left knee. 1.5 manas MRI scanner. Axial, sagittal and coronal T1, PD, PD FS and T2 FS images. FINDINGS: MEDIAL COMPARTMENT: Medial Meniscus: Intact. Articular Cartilage: Maintained. LATERAL COMPARTMENT: Lateral Meniscus: There is prominent meniscal signal abnormality within the posterior horn of the lateral meniscus extending to posterior horn-body junction of meniscus. This appears to predominantly relate to severe intrameniscal degeneration. On sagittal T2 fat-sat image number 21 of series 9, there is possible far peripheral undersurface meniscal extension of signal abnormality which could indicate a tiny area of meniscal tearing. Note that there is some artifact on the coronal STIR images in that region and the finding is not definitive. More anterior aspect of the lateral meniscus is intact. Articular Cartilage: There is a focal high-grade chondral defect of the central lateral femoral condyle measuring approximately 9 x 8 millimeters in size (grade 3 or 4). This is noted on coronal STIR image number 19 of series 5. Mild increased signal involving the posterior aspect of the lateral tibial plateau suggesting mild softening. PATELLOFEMORAL COMPARTMENT: Articular Cartilage: Maintained. LIGAMENTS: Anterior Cruciate Ligament: The anterior cruciate ligament is severely attenuated and likely chronically torn. Posterior Cruciate Ligament: Intact. MEDIAL COLLATERAL LIGAMENT AND POSTEROMEDIAL CORNER COMPLEX: Medial Collateral Ligament: Intact. Medial Head of the Gastrocnemius and Semimembranosus Tendons: Normal. LATERAL COLLATERAL LIGAMENT COMPLEX AND POSTEROLATERAL CORNER COMPLEX: Fibular Collateral Ligament: Normal. Distal Biceps Femoris Tendon Complex: Normal. Iliotibial Band: Normal. Popliteus Tendon: Normal. Posterolateral Corner Capsule: No defects. EXTENSOR MECHANISM: Distal Quadriceps Tendon: Normal. Patellar Tendon: Normal. Medial Patellar Retinaculum and Medial Patellofemoral Ligament: Normal. Lateral Patellar Retinaculum: Normal. Normal patellar alignment. Mild patella shiloh. Normal trochlear depth. Normal lateral trochlear inclination. JOINT SPACE AND CAPSULE: No effusion. No joint bodies. BONES AND SOFT TISSUES: No acute fracture or avascular necrosis.Small popliteal cyst.Subcutaneous varicosities are present. IMPRESSION: 1. Chronically torn ACL, left knee. 2. Focal high-grade chondral defect of the central lateral femoral condyle measuring 9 x 8 mm (grade 3 or 4). 3. Prominent intrameniscal degeneration of the posterior horn of the lateral meniscus with possible small area of far peripheral undersurface meniscal tearing. 4. Medial meniscus intact. 5. No effusion. 6. Small popliteal cyst. Dictated by John Onofre MD @ 11/06/2024 7:58:25 AM (Electronically Signed)
== END 2024-11-05 09:01 | disposition home or self-care (01) ==
LOC: MRI 09:00
PROVIDERS: PCP Family Medicine; Visit Provider Family Medicine
DX: M25.562 Pain in left knee (principal); S83.262A Peripheral tear of lateral meniscus, current injury, left knee, initial encounter; M71.22 Synovial cyst of popliteal space [Baker], left knee
CPT/HCPCS: 73721

== ENCOUNTER 2024-12-07 08:27 | Outpatient (CLI) | payer OTHER, SELFPAY | END 2024-12-07 08:28 | disposition home or self-care (01) | PROVIDERS: PCP Family Medicine; Visit Provider Family Medicine | DX: E78.5 Hyperlipidemia, unspecified (principal) | CPT/HCPCS: 80053; 80061 ==

== ENCOUNTER 2024-12-07 08:53 | Outpatient (CLI) | payer OTHER, SELFPAY ==
--- NOTE | 2024-12-07 09:15 | CRLHL7_ITS ---
For Patients: As a result of the Century Cures Act, medical imaging exams and procedure reports are released immediately into your electronic medical record. You may view this report before your referring provider. If you have questions, please contact your health care provider. INDICATION: BILATERAL SCREENING MAMMOGRAM, ASYMPTOMATIC 54 Y/O FEMALE COMPARISON: 07/30/2023, 06/04/2022, 04/17/2021 TECHNIQUE: Digital mammogram in CC and MLO projections including computer-aided detection (CAD) and tomosynthesis. BREAST COMPOSITION: There are scattered areas of fibroglandular density. FINDINGS: No suspicious findings. ASSESSMENT: BI-RADS 1 Negative RECOMMENDATION: Annual screening mammogram. A lay language report of this examination will be provided to the patient. Dictated by: Shaun Agudelo MD @ 12/07/2024 10:29:03 (Electronically Signed)
== END 2024-12-07 08:54 | disposition home or self-care (01) ==
LOC: MAMMO 08:53
PROVIDERS: PCP Family Medicine; Visit Provider Family Medicine
DX: Z12.31 Encounter for screening mammogram for malignant neoplasm of breast (principal)
CPT/HCPCS: 77063; 77067

== ENCOUNTER 2025-02-10 08:30 | Outpatient (RCR) | payer OTHER, SELFPAY ==
--- OUTSIDE RECORDS SUMMARY | 2024-06-19 08:33 | XMS_ITS | Data Portability ---
Author Organization [place] [facility] [employer] Address [address] [place] [place] [address] Assessment Encounter Date Assessment Date Assessment LastModified [...] XR, foot, 3 or more view 024 [facility], [address] [place] [address] [address], [place], [address], 13:53:24 XR, foot, 3 or more view /28/2 024 [email or web address] [place] [facility], [address] [facility] [address] [place], [address], 4 13:53:24 Medication Orders Medrol (Arturo) 4 mg tablets in a dose pack 024 [facility] [address] [employer], [address] [facility] [address], [place], [address], 4 10:16:01 Patient TargetsNo targets recorded. Patient InstructionsNo instructions recorded. Reason for Referral None Reported. Results Created Date Observation Date Name Description Value Unit Range Abnormal Flag Note LastModifiedBy Organization Detail LastModifiedTime 08/21/19 24 XR, foot, 3 or more view No observ ation record ed. [address] [place] [address] [address] [place], [address], 08/21/2023 10:15:13 08/21/19 24 XR, foot, 3 or more view No observ ation record ed. [address] [place] [address] [address] [place], [address], 08/21/2023 10:15:19 Result Notes None recorded. 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 Lateral plantar neuropathy ; Original Code: 908262562 Original Codesystem : SNOMED CT Classif ication: Medical Co nfirmation Status: Confirmed Not Available [facility] 3 09:15:37 Peptic ulcer 55110527 Active 2021 Peptic ulcer; Original Code: 69845335 O riginal Codesystem : SNOMED CT Classif ication: Medical Co nfirmation Status: Confirmed Not Available [facility] 3 09:15:37 Hypertens veronica disorder 57247893 Active 2021 Hypertensi ve disorder; Original Code: 4574270891 Original Codesystem : SNOMED CT Classif ication: Medical Co nfirmation Status: Confirmed Not Available [facility] 3 09:15:37 Metatarsa lgia 50950110 Active 2021 Metatarsal clifford; Original Code: 75219918 O riginal Codesystem : SNOMED CT Classif ication: Medical Co nfirmation Status: Confirmed Not Available [facility] 3 09:15:37 Notes:Acquired deformity of left foot Original Code: 2556563512 Original Codesystem: SNOMED CT Classification: Medical Confirmation Status: Confirmed Acquired deformity of right foot Original Code: 1046097032 Original Codesystem: SNOMED CT Classification: Medical Confirmation Status: Confirmed Problem Notes None recorded. Procedures Surgical History None recorded. Imaging Results Imaging Date Name Status LastModified by Organiz ation Details LastModified Time 08/21/2023 XR, foot, 3 or more view completed [address] [place] [address], [address], 08/21/2023 10:15:13 08/21/2023 XR, foot, 3 or more view completed [address] [place], [address], 08/21/2023 10:15:19 Procedure Notes None recorded. Medical [...] D3) 2021 active Medicati on Identifi ers: [id number] C ode Medthod: DNUM Ord erStatus : Ordered Visit Identifi ers: [id number] Vi sit Identifi er Type: FIN NBR Uniq ue Order Number: [id number] Admin istratio n Method: Med PRN [...] Updated DateTime 07/02/2022 170.18 cm 28.2 kg/m2 63571.63 nikko Kurtz [facility] 07/02/2022 10:23:58 Social History Question Answer Notes LastModified by Organizat ion Details LastModified Time Tobacco Smoking Status Current Every Day Smoker [place] [facility] 07/02/2022 11:42:27 What Is Your Level Of Alcohol Consumption? Occasional Information not available 07/02/2022 Do You Use Any Illicit Or Recreational Drugs? No Information not available 07/02/2022 Sex: Unknown Functional Status None recorded. Mental Status None recorded. Family History Nothing Reported. Medical History No medical history recorded. Gynecological HistoryNo gynecological history recorded. Obstetrics History GPAL:G 0 P 0 0 0 0 Past Encounters Encounter ID Performer Location Encounter Start Date Encounter Closed Date Diagnosis/Indication Diagnosis SNOMED-CT Code Diagnosis ICD10 Code [id number] [facility] Abarca [place] [facility] [address] [place] [phone] 07/02/2022 10:22:20 07/03/2022 09:12:27 Metatarsalgia 78188531 M77.41 M77.42 Tarsal sohail viet syndrome 76648221 G57.51 G57.52 Equinus co ntracture of the ankle 336113847 M24.571 M24.572 [id number] Vamsi Bernstein DPM [place] [facility] [address] [place] [phone] 08/21/2023 09:36:57 08/22/2023 13:53:23 Fibromyalgia 734676410 M79.7 Metatarsal clifford of right foot 4630950140 78500 M77.41 Metatarsal clifford of left foot 6954042138 97700 M77.42 Plantar fasciitis 648333 003 M72.2 Health Concerns Section Related Observation LastModified by Organization Detai ls LastModified Time None Recorded Concern Status LastModified by Organization Details LastModified Time None Recorded Advance Directives Directive None Recorded Payers Encounter Date Sequence Insurance Name Policy Number Policy [place] Covered Member ID [place] Member ID Guarantor Name 07/02/2022 1 [employer] (POS) [id number] Roselia Solitario [id number] 5 Roselia Solitario 08/21/2023 1 [employer] (POS) [id number] Roselia Solitario [id number] 5 Roselia Solitario Notes Date Note Type Note Provider Name and Address Organization Details Recorded Time 07/02/2022 text/html This established patient rtc for f/u evaluation of b/l foot pain. She feels it is worsening.She has increasing sharp pains to her forefoot. She has pain to both ankles. Denies any swelling. She does wear her orthotics regularly at work but not at home. NANCY Pierce - [facility] 07/02/2022 22:50:14 08/21/2023 text/html Patient is a 53 year old female established [...] effects at this time. Vamsi Bernstein, ANA [address] [place], [address], [facility] - [facility] 08/28/2023 11:06:08 OBGyn Episode No OBEpisode recorded.
--- OUTSIDE RECORDS SUMMARY | 2024-06-25 09:55 | XMS_ITS | Data Portability ---
Author Organization [place] - [facility], [employer] Address [address] [facility] [place] [address] Assessment Encounter Date Assessment Date Assessment LastModified [...] XR, foot, 3 or more view 024 [facility], [address] [place] [address] [address], [place], [address], 13:53:24 XR, foot, 3 or more view /28/2 024 [email or web address] [place] [facility], [address] [facility] [address] [place], [address], 4 13:53:24 Medication Orders Medrol (Arturo) 4 mg tablets in a dose pack 024 [facility] [address] [employer], [address] [facility] [address], [place], [address], 4 10:16:01 Patient TargetsNo targets recorded. Patient InstructionsNo instructions recorded. Reason for Referral None Reported. Results Created Date Observation Date Name Description Value Unit Range Abnormal Flag Note LastModifiedBy Organization Detail LastModifiedTime 08/21/19 24 XR, foot, 3 or more view No observ ation record ed. [address] [place] [address] [address] [place], [address], 08/21/2023 10:15:13 08/21/19 24 XR, foot, 3 or more view No observ ation record ed. [address] [place] [address] [address] [place], [address], 08/21/2023 10:15:19 Result Notes None recorded. Problems Name Problem SNOMED Code Status Onset Date Resolution Date Notes Provider Name and Address Organization Details Recorded Time Anxiety disorder 350140784 Active 2022 NANCY Pierce - [facility] 3 11:42:40 Gastroeso phageal reflux disease 315812912 Active 2022 NANCY Pierce - [facility] 3 11:43:52 Lateral plantar neuropath y 12853852 Active 2021 Lateral plantar neuropathy ; Original Code: 080208369 Original Codesystem : SNOMED CT Classif ication: Medical Co nfirmation Status: Confirmed Not Available [facility] 3 09:15:37 Peptic ulcer 16154430 Active 2021 Peptic ulcer; Original Code: 28373032 O riginal Codesystem : SNOMED CT Classif ication: Medical Co nfirmation Status: Confirmed Not Available [facility] 3 09:15:37 Hypertens veronica disorder 27829377 Active 2021 Hypertensi ve disorder; Original Code: 7615962868 Original Codesystem : SNOMED CT Classif ication: Medical Co nfirmation Status: Confirmed Not Available [facility] 3 09:15:37 Metatarsa lgia 99419842 Active 2021 Metatarsal clifford; Original Code: 54220157 O riginal Codesystem : SNOMED CT Classif ication: Medical Co nfirmation Status: Confirmed Not Available [facility] 3 09:15:37 Notes:Acquired deformity of left foot Original Code: 7969858980 Original Codesystem: SNOMED CT Classification: Medical Confirmation Status: Confirmed Acquired deformity of right foot Original Code: 2682446874 Original Codesystem: SNOMED CT Classification: Medical Confirmation Status: Confirmed Problem Notes None recorded. Procedures Surgical History None recorded. Imaging Results Imaging Date Name Status LastModified by Organiz ation Details LastModified Time 08/21/2023 XR, foot, 3 or more view completed [address] [place] [address], [address], 08/21/2023 10:15:13 08/21/2023 XR, foot, 3 or more view completed [address] [place], [address], 08/21/2023 10:15:19 Procedure Notes None recorded. Medical [...] D3) 2021 active Medicati on Identifi ers: [id number] C ode Medthod: DNUM Ord erStatus : Ordered Visit Identifi ers: [id number] Vi sit Identifi er Type: FIN NBR Uniq ue Order Number: [id number] Admin istratio n Method: Med PRN [...] Updated DateTime 07/02/2022 170.18 cm 28.2 kg/m2 15683.63 nikko Kurtz [facility] 07/02/2022 10:23:58 Social History Question Answer Notes LastModified by Organizat ion Details LastModified Time Tobacco Smoking Status Current Every Day Smoker [place] [facility] 07/02/2022 11:42:27 What [...] Code Diagnosis ICD10 Code [id number] [place] Abar[place] [facility] [address] [place] [phone] 07/02/2022 10:22:20 07/03/2022 09:12:27 Metatarsalgia 13749796 M77.41 M77.42 Tarsal sohail viet syndrome 31567452 G57.51 G57.52 Equinus co ntracture of the ankle 676994804 M24.571 M24.572 [id number] Vamsi Bernstein DPM [place] [facility] [address] [place] [address] 08/21/2023 09:36:57 08/22/2023 13:53:23 Fibromyalgia 727589994 M79.7 Metatarsal clifford of right foot 4765926394 37908 M77.41 Metatarsal clifford of left foot 9720494868 52776 M77.42 Plantar fasciitis 240532 003 M72.2 Health Concerns Section Related Observation LastModified by Organization Detai ls LastModified Time None Recorded Concern Status LastModified by Organization Details LastModified Time None Recorded Advance Directives Directive None Recorded Payers Encounter Date Sequence Insurance Name Policy Number Policy [place] Covered Member ID [place] Member ID Guarantor Name 07/02/2022 1 [employer] (POS) [id number] Roselia Solitario [id number] 5 Roselia Solitario 08/21/2023 1 [employer] (POS) [id number] Roselia Solitario [id number] 5 Roselia Solitario Notes Date Note Type [...] at this time. Vamsi Bernstein, ANA [address] [place], [address], [facility] - [facility] 08/28/2023 11:06:08 OBGyn Episode No OBEpisode recorded.
--- OUTSIDE RECORDS SUMMARY | 2024-06-25 09:55 | XMS_ITS ---
Author Organization [facility] Address [address] [place] [address] Care Team Providers Care Conciliation Court Judge Name Role Phone Unavailable Unavailable Unavailable Surgery Details Not on file Complications Check Surgery Details section. Procedure Estimated Blood Loss Check Surgery Details section. Procedure Findings Check Surgery Details section. Procedure Specimens Taken Check Surgery Details section.
--- OUTSIDE RECORDS SUMMARY | 2024-06-25 09:55 | XMS_ITS | Clinical Summary ---
Author Organization [facility] Address [place], [place] [address] Care Team Providers Care Cnc Field Service Engineer Name Role Phone Pcp, No Primary Care Provider Unavailabl e Allergies No known active allergies Medications triamcinolone 0.5% (ARISTOCORT) 0.5 % creamIndications :Rash Apply topically to affected area(s) 3 times daily. As needed in vaginal area 15 g 3 1 Active azelastine-fluti casone, 137-50 mcg per actuation, (DYMISTA) 137-50 mcg/spray nasal sprayIndications :Allergic rhinitis, unspecified seasonality, unspecified trigger Inhale 1 [place] to both nostrils 2 times daily. 1 [...] Date Lichen sclerosus 02/24/2019 Overview (02/24/2019): Sees timing [facility] Urinary frequency 02/03/2018 Irritant [...] Encounters Date Type Department Care Team Description 06/01/2024 Lab Requisition [facility] [phone] Jonathon Hooker MD from Last 3 Months Immunizations Name Administration Dates Next Due COVID-19 vaccine (Moderna 100mcg/0.5mL) JONN BARONE 08/03/2021,07/06/2021 DTaP 02/28/2005 Td (Age >=7 Years) [...] on file Legal Sex Female 6:24 AM PRINCIPAL MILITARY ANALYST Gender Identity Not on file Sexual Orientation [...] Comments Blood Pressure 144/87 08/29/2021 10:55 AM PRINCIPAL MILITARY ANALYST Pulse 86 08/29/2021 10:55 AM PRINCIPAL MILITARY ANALYST Temperature 36.8 C (98.3 F) 07/25/2021 12:03 PM PRINCIPAL MILITARY ANALYST Respiratory Rate 16 05/30/2021 9:13 AM PRINCIPAL MILITARY ANALYST Oxygen Saturation 99% 08/29/2021 10:55 AM PRINCIPAL MILITARY ANALYST Inhaled Oxygen Concentration - - Weight 76.7 kg (169 lb) 08/29/2021 10:55 AM PRINCIPAL MILITARY ANALYST Height 167.6 cm (5' 6) 07/25/2021 12:03 PM PRINCIPAL MILITARY ANALYST Body Mass Index 27.28 07/25/2021 12:03 PM PRINCIPAL MILITARY ANALYST Plan of Treatment Health Maintenance Due Date Last Done Comments HIV for age 15-65 1987 Hepatitis C screening for age 18-79 1990 Colonoscopy through age 75 2017 Mammogram for age 45-75 04/17/2022 04/17/20 21, 03/01/2020, 02/24/2019, Additional history exists Pneumococcal series for age 50+ (1 of 1 - PCV) 2022 Zoster (shingles) series for age 50+ (1 [...] Tdap Completed 08/18/2013 Pneumococcal series for age 6-49 Aged Out No longer eligible based on patient's age to complete this topic Goals Goal Patient Goal Type Associated Problems Recent Progress Patient-Stated? Author BLOOD PRESSURE-MA INTAINS BP LESS THAN 130/80 Blood Pressure No Ness Morrow NP Procedures Procedure Name Priority Date/Time Associated Diagnosis Comments LAB TRACKING EVENT Routine 06/01/2024 10 :15 AM PRINCIPAL MILITARY ANALYST PATH TISSUE EXAM Routine 06/01/2024 10:1 5 AM PRINCIPAL MILITARY ANALYST HPV HIGH RISK Routine 04/26/2022 9:30 AM CDT XR MAMMO BILAT SCREENING Routine 04/17/2021 9:38 AM CDT Visit for screening mammogram LIPID PANEL W REFLEX MEASURED LDL Routine 04/17/2021 8:56 AM CDT Screening for lipoid disorders from Last 3 Months or Most Recently Relevant to Health Maintenance Results * LAB TRACKING EVENT (06/01/2024 10:15 AM PRINCIPAL MILITARY ANALYST) Other (Other) Client Collect / Unknown 06/01/2024 10:15 AM PRINCIPAL MILITARY ANALYST 06/01/2024 10:12 PM PRINCIPAL MILITARY ANALYST us Jonathon Hooker MD LAB BILL ONLY Final Result [facility] [address] [place] [address] * PATH TISSUE EXAM (06/01/2024 10:15 AM PRINCIPAL MILITARY ANALYST) Case Report Pathology Report Case: [id number] Authorizing Provider: Jonathon Hooker MD Collected: 06/01/2024 1015 Ordering Location: [facility] Received: 06/02/2024 1020 Pathologist: Baltazar Rashid MD Specimens: A) - Sigmoid Polyp B) - Rectal Polyp 06/04/2024 7:08 AM [address]INCIPAL MILITARY [facility] [facility] Final Diagnosis A) COLON, SIGMOID, POLYPECTOMIES: 1. Hyperplastic polyps (2) B) RECTUM, POLYPECTOMIES: 1. Hyperplastic polyps (2) 06/04/2024 7:08 AM [facility] Clinical Information Ms. Solitario is a 53 y.o. 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 Gross Description A) Received in formalin are 5 kendall mucosal fragments averaging 2 mm in greatest dimension, which are entirely submitted in one cassette. It is labeled with the patient's name and designated multiple polyps, sigmoid colon. B) Received in formalin are 4 kendall mucosal fragments averaging 4 mm in greatest dimension, which are entirely submitted in one cassette. It is labeled with the patient's name and designated multiple polyps, rectum. Liza Mccarty 06/02/2024 11:55 AM 06/04/2024 7:08 [address]IPAL MILITARY ANALY[address] [facility] Microscopic Description The final diagnosis is based on microscopic examination of appropriate sections of all specimens. 06/04/2024 7:08 [address]IPAL MILITARY ANA[address] [facility] Additional Information Interpreted at [facility] - [address] [place] [address], [place] [address] 06/04/2024 7:08 AM [facility] Other (Sigmoid Polyp) 06/01/2024 10:15 AM PRINCIPAL MILITARY ANALYST 06/02/2024 10:20 AM PRINCIPAL MILITARY ANALYST Specimen (specimen) (Rectal Polyp ) 06/01/2024 10:15 AM PRINCIPAL MILITARY ANALYST 06/02/2024 10:20 AM PRINCIPAL MILITARY ANALYST us Jonathon Hooker MD PATHOLOGY/CYTOLOGY Final Res ult [facility] [address] [place] [address], [place] * HPV HIGH RISK (04/26/2022 9:30 AM CDT) TYPE 16 Negative Negative 04/28/2022 3:15 PM CDT [facility] TYPE 18 Negative Negative 04/28/2022 3:15 PM CDT [facility] OTHER HIGH RISK TYPES Negative Negative 04/28/2022 3:15 PM CDT [facility] Other (Cervical) 04/26/2022 9:30 AM CDT 04/27/2022 7:33 AM CDT Narrative [facility] - 04/28/2022 3:15 PM CDT HPV types 16, 18, 31, 33, 35, 39, 45, 51, 52, 56, 58, 59, 66 and 68 DNA were undetectable or below the pre-set threshold. Methodology: Shannon Valerio 4800 HPV Test us September L Tom [facility]REEMAN MICROBIOLOG[employer] Final Resu lt Performing Organization Address [facility] Co de Phone Number [facility] [address] [place] [address], [place] * XR MAMMO BILAT SCREENING (04/17/2021 [...] For Patients: As a result of the Century Cures Act, medical imaging exams and procedure reports are released immediately into your electronic medical record. You may view this report before your referring provider. If you have questions, please contact your health care provider. XR MAMMO BILAT SCREENING [[id number]] CLINICAL HISTORY: This is an asymptomatic 50 y.o. patient. INDICATION FOR EXAM: Mammogram Screening. TECHNIQUE: CC & MLO views were obtained. This study was evaluated with the assistance of Computer-Aided Detection. COMPARISON FILM: Yes 03/01/20 [facility] 02/24/19 [facility] FINDINGS: The breasts are heterogeneously dense, which may obscure small masses. There are no dominant masses, suspicious micro calcifications or areas of architectural distortion. us Nirmala Piña MD MAMMO Fi nal Result * (ABNORMAL) LIPID PANEL W REFLEX MEASURED LDL (04/17/2021 8:56 AM CDT) CHOLESTEROL,TOTAL 272(H) 100 - 199 mg/dL 04/17/2021 3:10 PM CDT [facility] TRIGLYCERIDES 129 <150 mg/dL 04/17/2021 3:10 PM CDT [facility] HDL CHOLESTEROL 55 >40 mg/dL 3:10 PM CDT [facility] NON-HDL CHOLESTEROL 217(H) <145 mg/dl 04/17/2021 3:10 PM CDT [facility] CHOL/HDL RATIO 4.95(H) <4.50 04/17/2021 3:10 PM CDT [facility] LDL CHOLESTEROL 191(H) <=130 mg/dL 04/17/2021 3:10 PM CDT [facility] VLDL CHOLESTEROL 26 <=30 mg/dL 04/17/2021 3:10 PM CDT [facility] PROVIDER ORDERED STATUS RANDOM 04/17/2021 3:10 PM CDT [facility] Blood BLOOD SPECIMEN / Unknown Venipuncture / Unknown 04/17/2021 8:56 AM CDT 04/17/2021 8:56 AM CDT us Nirmala Piña MD CHEMISTRY Fi nal Result [facility] [address] [place] [address], [place] from Last 3 Months or Most Recently Relevant to Health Maintenance Insurance RADHA ANNA * Guarantor: NASEEM BARNARD Account Type Relation to Patient Date of Phone Billing Address [employer] Employer ATTN [employer] PA[employer] [address] [address] Care Teams Cnc Field Service Engineer Relationship Specialty Start Date End Date Pcp, No . PCP - General 10/21/21
--- OUTSIDE RECORDS SUMMARY | 2024-06-25 09:55 | XMS_ITS | Clinical Summary ---
Author Organization [facility] Address [address] [place] [address] Care Team Providers Care Software Qa Manager Name Role Phone Unavailable Primary Care Provider Unavailabl e Source Comments Patient records contain information from all sites at [facility]. For routine questions regarding patient records, call [phone] during business hours, M-F 8:00 AM - 5:00 PM Central Time. Record requests for emergency care only can be directed to [phone] at any time.[facility] Allergies No known active allergies Medications fluticasone propionate (FLONASE) 50 mcg/actuation nasal spray Administer 2 sprays into nostril(s) once. 0 Active pantoprazole (PROTONIX) 40 mg EC tablet Take 40 mg by mouth daily. 0 Active cholecalciferol (VITAMIN D3) 5,000 Unit tablet Take 5,000 Units by mouth daily. 8 Active diclofenac sodium (Voltaren) 1 % gelIndications: Neuroma Plantar Left,Pain Foot Right,Fasciitis Plantar Apply 2 g topically 4 (four) times a day. Apply to soles of feet. 450 g 1 4 Active ciclopirox (Penlac) 8 % external solutionIndicat ions:Onychomyco sis Apply 1 Application topically at bedtime. Apply over nail and surrounding skin. Apply daily over previous coat. After seven (7) days, may remove with alcohol and continue cycle. 6.6 mL 5 4 Active meloxicam (Mobic) 7.5 mg tabletIndicatio ns:Fasciitis Plantar,Tendini tis Posterior Tibialis Left,Tendinitis Posterior Tibialis Right,Tarsal Tunnel Syndrome Bilateral TAKE 2 TABLETS BY MOUTH EVERY DAY 60 tablet 1 4 Active Active Problems No known active problems Encounters Date Type Department Care Team Description 05/21/2024 Refill Department of Orthopedic Surgery in [address] [phone] Leonora Banuelos am, D.PRigobertoMRigoberto Med Refill 04/20/2024 8:30 AM CDT Office Visit Department of Orthopedic Surgery in [address] [phone] Leonora Banuelos am, D.P.M. 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 Gender Identity Not on file Sexual Orientation [...] kg (182 lb 5.1 oz) 04/19/2020 1:50 PM CDT Height 169 cm (5' 6.54) 04/19/2020 1:50 PM CDT Body Mass Index 28.96 04/19/2020 1:50 PM CDT Plan of Treatment Health Maintenance Due Date Last Done Comments CT Colonography 1972 Cologuard 1972 Colonoscopy 1972 Colorectal Cancer Screening 1972 FIT 1972 HIV Screening 1972 Hepatitis C Screening 1972 Pneumococcal vaccine (0-49 years) (1 of 2 - PCV) 1978 Hepatitis B Vaccines (1 of 3 - 19+ 3-dose series) 1991 Pneumococcal vaccine (50+ years) (1 of 2 - PCV) 1991 Cervical/Vaginal Cancer Screening 2013 2010 Mammogram 04/17/2022 04/17/2021, 03/25, 03/01/2020, Additional history exists Zoster Vaccines (1 of 2) 2022 Depression Screening (Annual PHQ-2) 06/24/2023 DTaP,Tdap,and Td Vaccines (3 - Td or Tdap) 08/18/2023 08/18/2013, 02/28/2005 COVID-19 Vaccine ( - season) 2024 08/03/2021, 07/06/2021 Influenza Vaccine (#1) [...] Procedure Name Priority Date/Time Associated Diagnosis Comments BASIC METABOLIC PANEL, S/P Routine 01/02/2014 2:26 PM CDT from Last 3 Months or Most Recently Relevant to Health Maintenance Results * (ABNORMAL) BMP (Basic Metabolic Panel) (01/02/2014 [...] 4.8 MMOLL POWERCHART HXeGFR (MDRD) >60 >=60 [id number] POWERCHART eGFR Black/ >60 >=60 [id number] POWERCHART Blood 01/02/2014 2:26 PM CDT Ashley Tan M.D. LAB BLOOD ADD-ON Final Res ult POWERCHART from Last 3 Months or Most Recently Relevant to Health Maintenance Insurance [employer]
--- OUTSIDE RECORDS SUMMARY | 2024-06-25 09:55 | XMS_ITS | Referral Summary ---
Author Organization [facility] Address [address] [place] [address] Care Team Providers Care Amortization Schedule Clerk Name Role Phone Unavailable Primary Care Provider Unavailabl e Source Comments Patient records contain information from all sites at [facility]. For routine questions regarding patient records, call [phone] during business hours, M-F 8:00 AM - 5:00 PM Central Time. 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 LAB BLOOD ADD-ON Final Res ult POWERCHART from Last 3 Months or Most Recently Relevant to Health Maintenance Insurance [employer]
--- OUTSIDE RECORDS SUMMARY | 2024-06-25 09:56 | XMS_ITS | Encounter Summary ---
Author Organization [facility] Address [address] [place] [address] Care Team Providers Care Grounds Manager Name Role Phone Unavailable Primary Care Provider Unavailabl e Reason for Visit * Reason Comments Med Refill Encounter Details Date Type Department Care Team (Late st Contact Info) Description 05/21/2024 Refill Department of Orthopedic Surgery in [place], [place] [address] [place] [id number] Leonora Barkley D.PLenin [address] [place] [phone] Med Refill Social History Tobacco Use [...] on file Legal Sex Female 10:26 AM DELIVERY PERSON Gender Identity Not on file Sexual Orientation Not on file documented as of this encounter Miscellaneous Notes * Telephone Encounter - Monica Cummings LRigobertoP.N. - 05/25/2024 12:03 PM DELIVERY PERSON Spoke with Roselia via phone call, she did not request this refill and stated that she does not think it actually helps. She will call her pharmacy, decline current refill and cancel recurrent prescriptions. VERY PERSON documented in this encounter Plan of Treatment [...]
== END 2025-06-10 23:59 | disposition home or self-care (01) ==
PROVIDERS: PCP Family Medicine; Visit Provider Obstetrics & Gynecology
DX: N94.2 Vaginismus (principal); M54.9 Dorsalgia, unspecified; Z51.89 Encounter for other specified aftercare
CPT/HCPCS: 97032; 97110; 97112; 97140; 97163; 97530; 97535

== ENCOUNTER 2025-02-25 08:03 | Outpatient (CLI) | payer OTHER, SELFPAY ==
[2025-02-25 13:25] LABS: Bacterial Vaginosis* Negative (Negative); Candida glab/krus NOT DETECTED (No Detected)
== END 2025-02-25 08:04 | disposition home or self-care (01) ==
LOC: NFLDREF 08:03
PROVIDERS: PCP Family Medicine; Visit Provider Physician Assistant
DX: N89.8 Other specified noninflammatory disorders of vagina (principal); R30.0 Dysuria
CPT/HCPCS: 81513; 87086; 87481; 87661

== ENCOUNTER 2025-03-10 09:09 | Outpatient (CLI) | payer OTHER, SELFPAY ==
[2025-03-12 03:45] LABS: Kappa-Lambda Qt FLC W/ Ratio 1.73 (0.26-1.65)
== END 2025-03-10 09:10 | disposition home or self-care (01) ==
LOC: NPINS 09:10
PROVIDERS: PCP Family Medicine; Visit Provider Physician Assistant
DX: D47.2 Monoclonal gammopathy (principal)
CPT/HCPCS: 82085; 83520; 84156; 86334; 86335

== ENCOUNTER 2025-03-31 18:31 | Day surgery (SDC) | payer OTHER, SELFPAY ==
[2025-03-31] VITALS (12 sets, daily range): BP systolic 133–163; BP diastolic 84–111; PULSE 80–93; RESP 12–20; TEMP 36.4–36.8; O2SAT 87–97; BMI 28.5
--- NOTE | 2025-03-31 19:59 | ED.GENADULT ---
HPI - General Adult General Time Seen by Provider: 19:59 Date Seen: 03/31/25 Chief complaint: Sore Throat Stated complaint: tonsil pain Time Seen by Provider: 03/31/25 19:59 Source: patient and RN notes reviewed Mode of arrival: ambulatory Limitations: no limitations History of Present Illness HPI narrative: This 54-year-old female is coming in with concern of return of a tonsillar abscess. She was in urgent care on March 29, went in for sore throat and swollen uvula that had been present for 1 stay. She was having dysphagia. She had no fever, shortness of breath, no difficulty swallowing or eating. She had been using Tylenol to treat her symptoms. She has a history of a peritonsillar abscess a few years back. On exam her right tonsil was noted to be 2+ and edema extending into the soft palate but uvula midline. Patient had no trismus or exudates. She had a negative strep DNA. She was given amoxicillin for tonsillitis. She also received dose of 10 mg oral dexamethasone. Patient has not eaten since last night, still can eat but there is pain. She has been drinking fluids today. She notes that the swelling in the throat makes her feel gag E. She is breathing fine. She does believe it was the right side where the peritonsillar abscess was drained before. Related Data Home Medications ?Medication ?Instructions ?Recorded ?Confirmed nystatin 100,000 unit/gram topical 1 applic topical TID PRN 09/09/23 03/29/25 cream mecobalamin (vitamin B12) PO .QD 01/07/24 03/29/25 clobetasol 0.05 % topical cream 1 applic topical QHS PRN 05/14/24 03/29/25 cholecalciferol (vitamin D3) 50 50 mcg PO QDAY 10/01/24 03/29/25 mcg (2,000 unit) capsule polyethylene glycol 3350 17 17 g PO QDAY PRN 10/01/24 03/29/25 gram/dose oral powder (Miralax) psyllium seed (sugar) oral powder 1 tbsp PO QDAY PRN 10/01/24 03/29/25 (Metamucil (sugar) oral powder) Previous Rx's ?Medication ?Instructions ?Recorded ibuprofen 600 mg tablet 600 mg PO QID PRN #30 tabs 09/24/23 estradiol 0.01% (0.1 mg/gram) 0.5 g vaginal QHS #42.5 grams 10/15/24 vaginal cream (Estrace) pantoprazole 40 mg tablet,delayed 40 mg PO DAILY #90 tabs 12/07/24 release amoxicillin 500 mg tablet 500 mg PO BID 10 days #20 tabs 03/29/25 Allergies Allergy/AdvReac Type Severity Reaction Status Date / Time No Known Drug Allergies Allergy Verified 03/31/25 21:04 Review of Systems Status of ROS: Reports: 6 or more systems reviewed and unremarkable except as noted in History and below [facility] Medical History History of urinary retention ?Z87.898 - Personal history of other specified conditions (ICD-10) History of migraine ?Z86.69 - Personal history of other diseases of the nervous system and sense organs (ICD-10) Surgical History History of suburethral sling procedure ?Z98.890 - Other specified postprocedural states (ICD-10) History of tubal ligation (2000) ?Z98.51 - Tubal ligation status (ICD-10) History of peritonsillar abscess drainage (04/24/14) ?Z98.890 - Other specified postprocedural states (ICD-10) History of esophagogastroduodenoscopy (EGD) (09/2012) ?Z98.890 - Other specified postprocedural states (ICD-10) History of bunionectomy of both great toes (06/01/14) ?Z98.890 - Other specified postprocedural states (ICD-10) History of biopsy (12/05/17) ?Z98.890 - Other specified postprocedural states (ICD-10) Family History Mother Arthritis Esophageal reflux Hiatal hernia Family history of other condition Paternal Grandmother Diabetes Son Esophageal reflux Maternal Grandmother Family history of other condition Father Coronary artery disease Other Family history of pelvic surgery Social History (Reviewed 03/31/25 @ 20:09 by LORE Howell Narrative: SOCIAL HISTORY: . Lives in [facility]. 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 to Eloy a cousin of Eduardo who I went to high school with. Two children ages 20 and 30. Not currently sexually active. Exercises sporadically with walking and biking when the weather is nice. HABITS: She does smoke 1/2 pack per day. No recreational drug use. Alcohol use on the weekends. She does not tell me an amount. FAMILY HISTORY: Family History Problems: Family history of arthritis Mother Family history of hiatal hernia Mother Family history of other condition Maternal grandmother with esophageal strictures Family history of diabetes mellitus in paternal grandmother Family history of esophageal reflux Mother, son Family history of pelvic surgery Family history of other condition Mother with pelvic floor prolapse which required hysterectomy What is your current living situation?: I presently have a place to live Problems where you live: declined to answer Problems where you live details: none In the past 12 months, utilities in danger of being shut off: no In past 12 months, lack of transportation kept you from medical appts, meetings, work, or getting things needed for daily living: no In the past 12 mos, have been you worried that your food would run out before you had money to buy more?: sometimes true In the past 12 mos, the food you bought just didn't last and you didn't have money to buy more?: sometimes true Smoking Status: Current every day smoker What tobacco products do you use: cigarettes Smoking packs per day: 1 Smoking cigarettes per day: 20.0 Do you use any of these nicotine containing products: None Second hand tobacco smoke exposure: Yes How often do you have a drink containing alcohol: 2-4 times a month Alcohol type: beer How many standard drinks containing alcohol do you have on a typical day: 3 or 4 How often do you have six or more drinks on one occasion: Never AUDIT-C Alcohol total score: 3 Non-prescribed substance use: denies use Caffeine: Yes (coffee) How often does anyone, including family, friends and others, physically hurt you: never How often does anyone, including family, friends and others, insult or talk down to you: sometimes How often does anyone, including family, friends and others, threaten you with harm: never How often does anyone, including family, friends and others, scream or curse at you: sometimes Are you using contraception or practicing any form of control: No service: No Health Related Social Needs: food insecurity (Z59.41) and Other personal risk factors, not elsewhere classified (Z91.89) Exam Const: Vital Signs, click to edit/add: Vital Signs - 24 hr 03/31/25 18:37 03/31/25 20:10 03/31/25 20:57 Temperature 98.3 F Pulse Rate Pulse Rate [Pulse Oximeter] 92 82 Respiratory Rate 18 18 Blood Pressure Blood Pressure [Ri ght Arm] Blood Pressure [Ri ght Upper Arm] 161/111 H 137/95 H Pulse Oximetry 95 97 97 Oxygen Delivery Me thod Room Air Room Air Oxygen Flow Rate 03/31/25 23:01 03/31/25 23:05 03/31/25 23:10 Temperature 97.6 F Pulse Rate 89 82 80 Pulse Rate [Pulse Oximeter] Respiratory Rate 18 12 13 Blood Pressure 163/90 H 149/87 H 133/90 H Blood Pressure [Ri ght Arm] Blood Pressure [Ri ght Upper Arm] Pulse Oximetry 88 96 95 Oxygen Delivery Me thod Nasal Cannula Oxygen Flow Rate 5 03/31/25 23:15 03/31/25 23:20 03/31/25 23:25 Temperature Pulse Rate 85 81 87 Pulse Rate [Pulse Oximeter] Respiratory Rate 14 13 12 Blood Pressure 149/90 H 144/84 H 137/88 Blood Pressure [Ri ght Arm] Blood Pressure [Ri ght Upper Arm] Pulse Oximetry 95 93 89 Oxygen Delivery Me thod Room Air Nasal Cannula Oxygen Flow Rate 5 03/31/25 23:30 03/31/25 23:35 03/31/25 23:45 Temperature 97.5 F L 97.9 F Pulse Rate 88 86 Pulse Rate [Pulse Oximeter] 93 Respiratory Rate 16 16 20 Blood Pressure 139/97 H 147/91 H Blood Pressure [Ri ght Arm] 158/94 H Blood Pressure [Ri ght Upper Arm] Pulse Oximetry 95 96 87 L Oxygen Delivery Me thod Room Air Oxygen Flow Rate 3 04/01/25 00:00 04/01/25 00:30 04/01/25 00:45 Temperature 97.9 F Pulse Rate Pulse Rate [Pulse Oximeter] 92 93 95 Respiratory Rate 20 20 20 Blood Pressure Blood Pressure [Ri ght Arm] 143/98 H 127/91 H 123/100 H Blood Pressure [Ri ght Upper Arm] Pulse Oximetry 96 94 93 Oxygen Delivery Me thod Nasal Cannula Nasal Cannula Room Air Oxygen Flow Rate 3 1 04/01/25 01:15 Temperature Pulse Rate Pulse Rate [Pulse Oximeter] 90 Respiratory Rate 20 Blood Pressure Blood Pressure [Ri ght Arm] 125/87 Blood Pressure [Ri ght Upper Arm] Pulse Oximetry 96 Oxygen Delivery Me thod Nasal Cannula Oxygen Flow Rate 2 This 54-year-old female is alert, interactive, no apparent distress. She is lying in the bed in exam room 3. Pupils equal round reactive, sclera clear, extraocular muscles intact. Symmetric facial function. Her speech is normal. She is able to open her mouth completely, there is significant erythema and swelling of the right tonsillar base, do not note exudates. Uvula is still midline. The swelling does extend up into the soft palate on the right side. Tongue and anterior or mucosa is normal. Neck has some bilateral upper anterior cervical adenopathy no significant tenderness. Lungs are clear come good air entry, wheeze or crackles, no tachypnea, accessory muscle use. CV regular rate and rhythm, no murmur. Documenting provider has reviewed patient's vital signs: yes Course Course ED Course: Patient has obvious swelling and have no doubt this is likely a peritonsillar abscess. Will place an IV, get soft tissue neck CT. I will give her 10 mg IV dexamethasone and start Unasyn 3 g. Will also get basic labs. Consultations Consultation #1: Spoke with Dr. Richardson. There is a new ENT covering tonight, he will contact him to come down to do drainage of this peritonsillar abscess. Time: 20:53 Vital Signs Vital signs: Initial Vital Signs Temperature 98.3 F 03/31/25 18:37 Temperature Source Temporal Artery Scan 03/31/25 18:37 Pulse Rate 92 03/31/25 18:37 Respiratory Rate 18 03/31/25 18:37 Blood Pressure 161/111 H 03/31/25 18:37 Blood Pressure Mean 127 H 03/31/25 18:37 Pulse Oximetry 95 03/31/25 18:37 Oxygen Delivery Method Room Air 03/31/25 18:37 Vital Signs Temperature 98.3 F 03/31/25 18:37 Pulse Rate 92 03/31/25 18:37 Respiratory Rate 18 03/31/25 18:37 Blood Pressure 161/111 H 03/31/25 18:37 Pulse Oximetry 95 03/31/25 18:37 Oxygen Delivery Method Room Air 03/31/25 18:37 Temperature 97.9 F 04/01/25 00:00 Pulse Rate 90 04/01/25 01:15 Respiratory Rate 20 04/01/25 01:15 Blood Pressure 125/87 04/01/25 01:15 Pulse Oximetry 96 04/01/25 01:15 Oxygen Delivery Method Nasal Cannula 04/01/25 01:15 Oxygen Flow Rate 2 04/01/25 01:15 Medications Administered Medications: Discontinued Medications Generic Name Dose Route Start Last Admin Trade Name Freq PRN Reason Stop Dose Admin Dexamethasone 10 mg 03/31/25 20:10 03/31/25 21:11 Dexamethasone 10 Mg/Ml Pf IVP 03/31/25 20:11 10 mg ONCE ONE Administration Fentanyl 50 mcg 03/31/25 23:09 03/31/25 23:25 Fentanyl 100 Mcg/2 Ml Inj IVP 50 mcg Q5M PRN Administration Ampicillin Sodium/Sulbactam 100 mls @ 200 mls/hr 03/31/25 20:10 03/31/25 21:30 Sodium 3 gm/ Sodium Chloride IVPB 03/31/25 20:11 Infused ONCE ONE Infusion Lactated Ringer's 1,000 mls @ 125 mls/hr 03/31/25 21:35 03/31/25 23:35 Lactated Ringers 1000 Ml IV Infused .Q8H JAYY Infusion Lactated Ringer's 1,000 mls @ 100 mls/hr 03/31/25 23:10 04/01/25 00:13 Lactated Ringers 1000 Ml IV Not Given .Q10H JAYY Ibuprofen 200 mg 03/31/25 23:10 04/01/25 01:03 Ibuprofen 200 Mg Tablet PO 200 mg Q4H PRN Administration Medical Decision Making Lab Data Lab results reviewed: Yes I reviewed the patient's lab results Labs: Lab Results 03/31/25 03/31/25 Range/Units 20:15 21:02 WBC 13.39 H (4.50-11.00) K/uL RBC 4.52 (4.00-5.20) m/uL Hgb 14.2 (12.0-16.0) gm/dL Hct 42.3 (33.0-51.0) % MCV 94 (80-100) fL MCH 31 (26-34) pg MCHC 34 (32-36) gm/dL RDW Coeff of Janice 13.5 (11.5-15.5) % Plt Count 237 (140-440) K/uL Neut % (Auto) 67.9 (42.0-72.0) % Lymph % (Auto) 23.6 (20-44) % Sully % (Auto) 6.8 (0.0-11.0) % Eos % (Auto) 1.3 (0.0-7.0) % Baso % (Auto) 0.1 (0.0-3.0) % Neut # (Auto) 9.10 H (1.7-7.0) K/uL Lymph # (Auto) 3.20 H (0.90-2.90) K/uL Sully # (Auto) 0.90 (0.00-0.90) K/UL Eos # (Auto) 0.20 (0.00-0.50) K/uL Baso # (Auto) 0.00 (0.00-0.30) K/uL Abs Immat Gran (auto) 0.00 (0.00-0.30) K/uL Imm/Tot Granulo (auto) 0.3 % Sodium 136 (135-149) mmol/L Potassium 3.4 L (3.6-5.1) mmol/L Chloride 104 (96-114) mmol/L Carbon Dioxide 22 (20-32) mmol/L Anion Gap 10 (7-15) mEq/L BUN 10 (7-30) mg/dL Creatinine 0.8 (0.5-1.5) mg/dL Estimated Creat Clear 79.99 Estimated GFR 89 ml/min Glucose 93 (60-115) mg/dL Calcium 9.4 (8.4-10.6) mg/dL Total Bilirubin 0.9 (0.1-1.5) mg/dL AST 19 (12-35) U/L ALT 15 (4-35) U/L Alkaline Phosphatase 104 (40-150) U/L C-Reactive Protein 7.6 H (0.5-1.0) mg/dL Total Protein 7.2 (6.0-8.3) g/dL Albumin 4.0 (3.3-5.0) g/dL Discharge Plan Discharge Clinical Impression: Abscess, peritonsillar Patient Disposition: XFER to OR
--- NOTE | 2025-03-31 20:11 | CRLHL7_ITS ---
For Patients: As a result of the Century Cures Act, medical imaging exams and procedure reports are released immediately into your electronic medical record. You may view this report before your referring provider. If you have questions, please contact your health care provider. INDICATION: Tonsil pain. TECHNIQUE: CT of the neck soft tissues performed with IV contrast. Contrast: 90 cc Isovue 370. COMPARISON: None available at this institution. FINDINGS: Asymmetric enlargement of the right palatine tonsil. There is a rim enhancing hypodense collection in the peritonsillar region which measure up to 2.5 x 2.4 x 2 cm. This lesion is partially obscured by dental amalgam streak artifact. The parotid and submandibular glands appear unremarkable. The thyroid gland is normal. Presumed reactive lymphadenopathy. The visualized major vascular structures appear intact. The visualized intracranial components appear grossly intact. Visualized orbits and contents appear unremarkable. Mild paranasal sinus mucosal disease. Lung apices are clear. Mild cervical spondylosis. IMPRESSION: 1. Acute tonsillitis, with moderate-sized right peritonsillar abscess measuring up to at least 2.5 cm. 2. The abscess is partially obscured by streak artifact from dental amalgam. If better visualization is needed repeat angled CT may be beneficial to decrease streak artifact interference. 3. Presumed reactive lymphadenopathy. Please note that all CT scans at this facility use dose modulation, iterative reconstruction, and/or weight-based dosing when appropriate to reduce radiation dose to as low as reasonably achievable. Dictated by Misael De Dios MD @ 03/31/2025 8:48:52 PM (Electronically Signed)
[2025-03-31 20:30] LABS: Hematocrit* 42.3 % (33.0-51.0); Hemoglobin* 14.2 gm/dL (12.0-16.0); Immature Granulocytes Pct Auto 0.3 %; Mean Corpuscular HGB Conc 34 gm/dL (32-36); Mean Corpuscular Hemoglobin 31 pg (26-34); Mean Corpuscular Volume 94 fL (80-100); RDW Coefficient of Variation % 13.5 % (11.5-15.5); Red Blood Count* 4.52 m/uL (4.00-5.20); White Blood Count* 13.39 K/uL (4.50-11.00)
[2025-03-31 20:35] LABS: Immature Granulocytes Abs Auto 0.00 K/uL (0.00-0.30); Lymphocytes Absolute Auto 3.20 K/uL (0.90-2.90); Slide Review Reflex No
[2025-03-31] MEDS: AMPICILLIN/SULBACTAM 3 GM in 0.9 % SODIUM CHLORIDE Mini-bag 100 ML IVPB (20:53)
[2025-03-31] MEDS: DEXAMETHASONE 10 MG/ML PF IVP (21:11)
[2025-03-31 21:23] LABS: Albumin* 4.0 g/dL (3.3-5.0); Chloride* 104 mmol/L (96-114); Potassium* 3.4 mmol/L (3.6-5.1); Sodium* 136 mmol/L (135-149)
[2025-03-31 21:26] LABS: Alanine Aminotransferase* 15 U/L (4-35); Alkaline Phosphatase* 104 U/L (40-150); Anion Gap 10 mEq/L (7-15); Aspartate Amino Transferase* 19 U/L (12-35); Bilirubin Total* 0.9 mg/dL (0.1-1.5); Blood Urea Nitrogen* 10 mg/dL (7-30); Carbon Dioxide* 22 mmol/L (20-32); Creatinine* 0.8 mg/dL (0.5-1.5); Est. Creatinine Clearance* 79.99; Estimated Glomerular Filt Rate 89 ml/min; Total Protein* 7.2 g/dL (6.0-8.3)
[2025-03-31 21:27] LABS: Calcium* 9.4 mg/dL (8.4-10.6); Glucose* 93 mg/dL (60-115)
[2025-03-31] MEDS: LACTATED RINGERS 1000 ML 1,000 ML 125 ML IV (21:40)
--- NOTE | 2025-03-31 23:10 | P.ANES_ITS ---
Anesthesia Charges Start Date/Time Anesthesia Start Date: 03/31/25 Anesthesia Start Time: 22:31 Stop Date/Time Anesthesia Stop Date: 03/31/25 Anesthesia Stop Time: 23:06 Summary Emergency: SHADOW GRAPH WEIGHT OPERATOR Coding CPT Codes CPT Codes: ANESTH PROCEDURE ON MOUTH - 47912 ([id number]) P2 - PATIENT W/MILD SYST DISEASE, QZ - SHADOW GRAPH WEIGHT OPERATOR SVC W/O PRODUCT SUPPORT TECHNICIAN BY Additional Codes: Summary - Emergency: SHADOW GRAPH WEIGHT OPERATOR ([id number])
--- NOTE | 2025-03-31 23:10 | W.ANESCHARGE ---
Anesthesia Charges Start Date/Time Anesthesia Start Date: 03/31/25 Anesthesia Start Time: 22:31 Stop Date/Time Anesthesia Stop Date: 03/31/25 Anesthesia Stop Time: 23:06 Summary Emergency: FOUNDATION ASSISTANT Coding CPT Codes CPT Codes: ANESTH PROCEDURE ON MOUTH - 02521 ([id number]) P2 - PATIENT W/MILD SYST DISEASE, QZ - FOUNDATION ASSISTANT SVC W/O METALLIC YARN SLITTING MACHINE OPERATOR BY Additional Codes: Summary - Emergency: FOUNDATION ASSISTANT ([id number])
[2025-04-01] VITALS: BP 143/98; PULSE 92; RESP 20; TEMP 36.6; O2SAT 96
[2025-04-01 00:30] VITALS: BP 127/91; PULSE 93; RESP 20; O2SAT 94
[2025-04-01 00:45] VITALS: BP 123/100; PULSE 95; RESP 20; O2SAT 93
[2025-04-01] MEDS: IBUPROFEN 200 MG TABLET PO (01:03)
[2025-04-01 01:15] VITALS: BP 125/87; PULSE 90; RESP 20; O2SAT 96
--- NOTE | 2025-04-01 02:20 | PC.NURSE ---
Pt arrived from PACU at 2345. Mild hypoxia on RA, SpO2= 87%. Pt initially placed on 3L/O2 via NC to maintain sats greater than 90%. She was able to wean to RA prior to discharge, maintaining sats between 92-94%. Rates pain 4/10, pt sucking on ice chips and had a popsicle. Icepack given to place on her throat and Ibuprofen given PO. Pt was able to void and IV dc'd, catheter intact. She was discharged to home in the care of her at 0215. Pt and her verbalized understanding of discharge instructions and follow up appointments.
--- NOTE | 2025-04-02 09:51 | W.PM.ENTCN ---
HPI- ENT Consult Date of Consult Date Seen: 03/31/25 Patient: Other Consult date: 04/02/25 Primary Care Provider: Jadiel June MD Consult Narrative Reason for consult: Right peritonsillar abscess Narrative: Roselia Solitario is a 54 year old female presenting with 3rd peritonsillar abscess. This is on the right side. Airway is adequate she has trismus. PFSH PFS Medical History History of urinary retention ?Z87.898 - Personal history of other specified conditions (ICD-10) History of migraine ?Z86.69 - Personal history of other diseases of the nervous system and sense organs (ICD-10) Surgical History History of suburethral sling procedure ?Z98.890 - Other specified postprocedural states (ICD-10) History of tubal ligation (2000) ?Z98.51 - Tubal ligation status (ICD-10) History of peritonsillar abscess drainage (04/24/14) ?Z98.890 - Other specified postprocedural states (ICD-10) History of esophagogastroduodenoscopy (EGD) (09/2012) ?Z98.890 - Other specified postprocedural states (ICD-10) History of bunionectomy of both great toes (06/01/14) ?Z98.890 - Other specified postprocedural states (ICD-10) History of biopsy (12/05/17) ?Z98.890 - Other specified postprocedural states (ICD-10) Family History Mother Arthritis Esophageal reflux Hiatal hernia Family history of other condition Paternal Grandmother Diabetes Son Esophageal reflux Maternal Grandmother Family history of other condition Father Coronary artery disease Other Family history of pelvic surgery Social History Narrative: SOCIAL HISTORY: . Lives in [facility]. 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 to Eloy a cousin of Eduardo who I went to high school with. Two children ages 20 and 30. Not currently sexually active. Exercises sporadically with walking and biking when the weather is nice. HABITS: She does smoke 1/2 pack per day. No recreational drug use. Alcohol use on the weekends. She does not tell me an amount. FAMILY HISTORY: Family History Problems: Family history of arthritis Mother Family history of hiatal hernia Mother Family history of other condition Maternal grandmother with esophageal strictures Family history of diabetes mellitus in paternal grandmother Family history of esophageal reflux Mother, son Family history of pelvic surgery Family history of other condition Mother with pelvic floor prolapse which required hysterectomy What is your current living situation?: I presently have a place to live Problems where you live: declined to answer Problems where you live details: none In the past 12 months, utilities in danger of being shut off: no In past 12 months, lack of transportation kept you from medical appts, meetings, work, or getting things needed for daily living: no In the past 12 mos, have been you worried that your food would run out before you had money to buy more?: sometimes true In the past 12 mos, the food you bought just didn't last and you didn't have money to buy more?: sometimes true Smoking Status: Current every day smoker What tobacco products do you use: cigarettes Smoking packs per day: 1 Smoking cigarettes per day: 20.0 Do you use any of these nicotine containing products: None Second hand tobacco smoke exposure: Yes How often do you have a drink containing alcohol: 2-4 times a month Alcohol type: beer How many standard drinks containing alcohol do you have on a typical day: 3 or 4 How often do you have six or more drinks on one occasion: Never AUDIT-C Alcohol total score: 3 Non-prescribed substance use: denies use Caffeine: Yes (coffee) How often does anyone, including family, friends and others, physically hurt you: never How often does anyone, including family, friends and others, insult or talk down to you: sometimes How often does anyone, including family, friends and others, threaten you with harm: never How often does anyone, including family, friends and others, scream or curse at you: sometimes Are you using contraception or practicing any form of control: No service: No Health Related Social Needs: food insecurity (Z59.41) and Other personal risk factors, not elsewhere classified (Z91.89) Meds Home Medications and Allergies Home Medications ?Medication ?Instructions ?Recorded ?Confirmed ?Type nystatin 100,000 unit/gram topical 1 applic topical TID PRN 09/09/23 03/29/25 History cream ibuprofen 600 mg tablet 600 mg PO QID PRN #30 tabs 09/24/23 03/29/25 Rx mecobalamin (vitamin B12) PO .QD 01/07/24 03/29/25 History clobetasol 0.05 % topical cream 1 applic topical QHS PRN 05/14/24 03/29/25 History cholecalciferol (vitamin D3) 50 50 mcg PO QDAY 10/01/24 03/29/25 History mcg (2,000 unit) capsule polyethylene glycol 3350 17 17 g PO QDAY PRN 10/01/24 03/29/25 History gram/dose oral powder (Miralax) psyllium seed (sugar) oral powder 1 tbsp PO QDAY PRN 10/01/24 03/29/25 History (Metamucil (sugar) oral powder) estradiol 0.01% (0.1 mg/gram) 0.5 g vaginal QHS #42.5 grams 10/15/24 03/29/25 Rx vaginal cream (Estrace) pantoprazole 40 mg tablet,delayed 40 mg PO DAILY #90 tabs 12/07/24 03/29/25 Rx release amoxicillin 500 mg tablet 500 mg PO BID 10 days #20 tabs 03/29/25 03/31/25 Rx Allergies Allergy/AdvReac Type Severity Reaction Status Date / Time No Known Drug Allergies Allergy Verified 03/31/25 21:04 Exam Narrative: Exam Narrative: General skin neuro respiratory gait peripheral vascular vocal quality skin of head neck are all negative except large right peritonsillar abscess airway adequate for intubation Assessment and Plan Assessment and plan (1) Abscess, peritonsillar: Status: Acute Plan Discussed option medical therapy versus incision drainage. Given size of abscess and effect on upper airway would recommend incision and drainage. Risks include anesthesia bleeding difficult recovery recurrence etc. she understands wish to proceed will schedule as soon as possible. Note that this dictation is being done by Dr. Richardson for Dr. Harjit greene per his instruction.
--- NOTE | 2025-04-02 12:09 | W.PM.ENTPROC ---
Procedure Note Date of procedure: 04/02/25 Pre-op diagnosis: Right peritonsillar abscess Post-op diagnosis: same Procedure: Procedure incision drainage and irrigation of right peritonsillar abscess The after general endotracheal anesthesia was induced patient was prepped and draped in usual fashion. The McIvor mouth gag was inserted the tongue retracted forward. An 11 blade was used to incise directly over the abscess. Blunt dissection was then used to enter the abscess. A large amount of pus was drained. The abscess cavity was irrigated. Bleeding was controlled with electrocautery. The patient tolerated procedure well was extubated in the operating room taken recovery in satisfactory condition. Blood loss during procedure less than 20 mL. Note this dictation is done by Dr. Jesús Richardson at the instruction of Dr. Harjit Jason Surgeon: Chinedu Jason MD
== END 2025-04-01 02:15 | disposition home or self-care (01) ==
LOC: ED 21:33 → SS 22:41 → MEDSURG 04-01 00:07
PROVIDERS: Emergency Provider Family Medicine; PCP Family Medicine; Visit Provider Otolaryngology
PROC: 0C9PXZZ Drainage of Tonsils, External Approach (ICD-10-PCS; CPT 42700; principal; 2025-03-31 21:45)
DX: J36 Peritonsillar abscess (principal)
CPT/HCPCS: 42700; 00170; 36415; 70491; 80053; 85025; 86140; 94761; 99140; 99284; 99285; A9270; J0295; J0330; J1100; J1630; J2371; J2405; J2704; J3010; J7120; Q9967

== ENCOUNTER 2025-05-28 10:03 | Day surgery (SDC) | payer OTHER, SELFPAY ==
[2025-05-28] VITALS (16 sets, daily range): BP systolic 116–178; BP diastolic 72–135; PULSE 69–85; RESP 12–16; TEMP 36.7–37; O2SAT 93–100; BMI 28.7
[2025-05-28] MEDS: LACTATED RINGERS 1000 ML 1,000 ML 100 ML IV (10:05)
[2025-05-28] MEDS: SODIUM CHLORIDE 0.9 % (FLUSH) 10 ML SYRINGE IVF (10:43)
--- NOTE | 2025-05-28 12:20 | P.ANES_ITS ---
Anesthesia Charges Start Date/Time Anesthesia Start Date: 05/28/25 Anesthesia Start Time: 11:50 Stop Date/Time Anesthesia Stop Date: 05/28/25 Anesthesia Stop Time: 12:42 Coding CPT Codes CPT Codes: ANESTH PROCEDURE ON MOUTH - 39568 ([id number]) P2 - PATIENT W/MILD SYST DISEASE, QK - COSMETICS AND TOILETRIES SALESPERSON 2-4 CNCRNT ANES PROC, QX - TRUCKMAN SVC W/ MD MED DIRECTION
--- NOTE | 2025-05-28 12:20 | W.ANESCHARGE ---
Anesthesia Charges Start Date/Time Anesthesia Start Date: 05/28/25 Anesthesia Start Time: 11:50 Stop Date/Time Anesthesia Stop Date: 05/28/25 Anesthesia Stop Time: 12:42 Coding CPT Codes CPT Codes: ANESTH PROCEDURE ON MOUTH - 16038 ([id number]) P2 - PATIENT W/MILD SYST DISEASE, QK - INTELLIGENCE AGENT 2-4 CNCRNT ANES PROC, QX - CUSTODIAN ATHLETIC EQUIPMENT SVC W/ MD MED DIRECTION
--- NOTE | 2025-05-28 12:25 | W.PM.ENTPROC ---
Procedure Note Date of procedure: 05/28/25 Procedure: Preop diagnosis history of 3 peritonsillar abscesses Postop same Procedure tonsillectomy Under general tracheal anesthesia patient was prepped and draped in usual fashion. The McIvor mouth gag was inserted the tongue retracted forward. The right tonsil was removed with a combination of needlepoint and bipolar cautery. Bleeding was controlled with suction cautery. The left tonsil was removed in identical fashion. The gag was let down the patient observed for 5 minutes no further bleeding was noted. Patient was extubated the operating taken recovery in satisfactory condition. Blood loss was less than 10 mL. Surgeon: Jesús Richardson MD
--- NOTE | 2025-05-28 12:46 | P.ANES_ITS ---
Anesthesia Charges Start Date/Time Anesthesia Start Date: 05/28/25 Anesthesia Start Time: 11:50 Stop Date/Time Anesthesia Stop Date: 05/28/25 Anesthesia Stop Time: 12:42 Coding CPT Codes CPT Codes: ANESTH PROCEDURE ON MOUTH - 95631 ([id number]) P2 - PATIENT W/MILD SYST DISEASE, QK - TUNNEL ELASTIC OPERATOR LOCKSTITCH 2-4 CNCRNT ANES PROC, QX - SERVICE PARTS COORDINATOR SVC W/ MD MED DIRECTION
--- NOTE | 2025-05-28 12:46 | W.ANESCHARGE ---
Anesthesia Charges Start Date/Time Anesthesia Start Date: 05/28/25 Anesthesia Start Time: 11:50 Stop Date/Time Anesthesia Stop Date: 05/28/25 Anesthesia Stop Time: 12:42 Coding CPT Codes CPT Codes: ANESTH PROCEDURE ON MOUTH - 46977 ([id number]) P2 - PATIENT W/MILD SYST DISEASE, QK - HOME INSURANCE AGENT 2-4 CNCRNT ANES PROC, QX - POLICY ADVISER SVC W/ MD MED DIRECTION
[2025-05-28] MEDS: ACETAMINOPHEN 160 MG/5 ML CUP 320 MG PO (13:53)
[2025-05-28] MEDS: IBUPROFEN 100 MG/5 ML SUSP 200 MG PO (13:53)
== END 2025-05-28 15:40 | disposition home or self-care (01) ==
PROVIDERS: PCP Family Medicine; Visit Provider Otolaryngology
PROC: (CPT 42826; principal; 2025-05-28 11:30)
DX: J35.1 Hypertrophy of tonsils (principal)
CPT/HCPCS: 42826; 00170; A9270; J0330; J1100; J2250; J2405; J2704; J3010; J3490; J7120